=== PATIENT | female | born 1980 | race Caucasian/White ===

== ENCOUNTER 2017-09-14 22:42 | Emergency (ER) | payer OTHER ==
[2017-09-14 23:01] VITALS: BP 149/90; PULSE 91; RESP 20; TEMP 98.4
[2017-09-14] MEDS ORDERED: IBUPROFEN 600 MG TAB PO STA (23:46)
--- NOTE | 2017-09-14 23:49 | ED ---
Upper Extremity HPI - General Chief Complaint: Extremity Injury, Upper Stated Complaint: Hand Injury Time Seen by Provider: 09/14/17 23:37 Source: patient Mode of arrival: ambulatory Limitations: no limitations - History of Present Illness Initial Comments: 37-year-old female patient presents to the emergency department today for complaints of left hand and left wrist pain. Patient states that 2 hours ago she hit a dog with her left hand. She states this is her weakest hand and she isn't having severe pain since. She denies any numbness or tingling but does report increased pain with movement of the thumb in the index finger. Denies any previous injury to the hand. States she does have a history of carpal tunnel. Denies any other injuries. Patient denies any headache, neck pain, back pain, chest pain, shortness of breath, dizziness, weakness, abdominal pain , nausea, vomiting, or difficulties with bowel movements or urination. - Related Data Home Medications Medication Instructions Recorded Confirmed Amitriptyline HCl [Elavil] 25 mg PO HS 07/23/15 07/27/15 Pantoprazole Sodium [Protonix] 20 mg PO DAILY 07/23/15 07/27/15 oxyCODONE-APAP 10-325MG [Percocet 1 tab PO Q6HR PRN 07/23/15 07/27/15 10-325 mg] Previous Rx's Medication Instructions Recorded Ibuprofen [Motrin] 600 mg PO Q8HR PRN #30 tab 09/15/17 Allergies Allergy/AdvReac Type Severity Reaction Status Date / Time aspirin Allergy Anaphylaxis Verified 09/14/17 23:01 divalproex sodium Allergy Chest Verified 09/14/17 23:01 [From Depakote] Pain,agitated and violent gabapentin Allergy Chest Verified 09/14/17 23:01 Pain,agitated and voilent latex Allergy Rash/Hives Verified 09/14/17 23:01 Penicillins Allergy Chest Verified 09/14/17 23:01 Pain,weak legs unable to walk Sulfa (Sulfonamide Allergy Rash/Hives Verified 09/14/17 23:01 Antibiotics) Review of Systems ROS Statement: Those systems with pertinent positive or pertinent negative responses have been documented in the HPI. ROS Other: All systems not noted in ROS Statement are negative. Past Medical History Past Medical History: Asthma, Cancer, GERD/Reflux Additional Past Medical History / Comment(s): left sided abdominal pain,cyst to ovary,melanoma-jaw line-removed at Dr's office. History of Any Multi-Drug Resistant Organisms: None Reported Past Surgical History: Adenoidectomy, Tonsillectomy, Tubal Ligation Additional Past Surgical History / Comment(s): "burned olmos of ovaries",nasal surg. Past Anesthesia/Blood Transfusion Reactions: No Reported Reaction Past Psychological History: Bipolar, PTSD, Schizophrenia Smoking Status: Former smoker Past Alcohol Use History: Occasional Past Drug Use History: None Reported - Past Family History Mother Family Medical History: Cancer Additional Family Medical History / Comment(s): breast Father Additional Family Medical History / Comment(s): w/aneurysm General Exam Limitations: no limitations General appearance: alert, in no apparent distress, other (This is a well- developed, well-nourished adult female patient in no acute distress. Vital signs upon presentation are temperature 98.4F, pulse 91, respirations 20, blood pressure 149/90, pulse ox 100% on room air.) Eye exam: Present: normal appearance, PERRL, EOMI. Absent: scleral icterus, conjunctival injection, periorbital swelling ENT exam: Present: normal exam, normal oropharynx, mucous membranes moist Respiratory exam: Present: normal lung sounds bilaterally. Absent: respiratory distress, wheezes, rales, rhonchi, stridor Cardiovascular Exam: Present: regular rate, normal rhythm, normal heart sounds. Absent: systolic murmur, diastolic murmur, rubs, gallop, clicks Extremities exam: Present: full ROM, tenderness (Volar wrist tenderness over the tendons/ligaments. Tenderness to the first and second digits on the right hand. ), normal capillary refill, other (Skin to the hand and wrist is pink, warm, and dry. Cap refills less than 3 seconds. Radial pulses 2+ and equal bilaterally.). Absent: normal inspection, pedal edema, joint swelling, calf tenderness Neurological exam: Present: alert, oriented X3, CN II-XII intact Psychiatric exam: Present: normal affect, normal mood Skin exam: Present: warm, dry, intact, normal color. Absent: rash Course Vital Signs 09/14/17 22:58 Temperature 98.4 F Pulse Rate 91 Respiratory 20 Rate Blood Pressure 149/90 O2 Sat by Pulse 100 Oximetry Medical Decision Making - Medical Decision Making 37-year-old female patient presents the emergency department today for complaints of left hand and wrist pain after she slapped a dog. Neurovascular status was intact. Patient did have range of motion intact but did report increased pain with full flexion but mostly with extension of the wrist. Patient had good strength in her fingers. X-ray of the left hand and wrist were negative for any acute fractures or dislocations. Patient is most likely expressing a sprain to the left wrist and hand. We will place an Juma wrap. She is instructed to take ibuprofen for pain control. She is instructed to rest , ice, and elevate. She is instructed to follow-up with orthopedics if her symptoms do not improve. Instructed to follow-up with her primary care physician for recheck in 1-2 days. Return parameters discussed in detail. She verbalizes understanding and agrees this plan. - Radiology Data Radiology results: report reviewed, image reviewed 4 views of the left wrist are obtained. There is no fracture nor dislocation. Joint spaces are normal. Scaphoid appears normal. Impression by Dr. Quintana shows normal left wrist. 3 views of the left hand are obtained. Metacarpals are intact. I see no fracture nor dislocation. Joint spaces are normal. Impression by Dr. Quintana shows negative left hand exam. Disposition Clinical Impression: Left wrist sprain, Sprain of left hand Disposition: HOME SELF-CARE Condition: Good Instructions: Hand Sprain (ED), Wrist Sprain (ED) Additional Instructions: Wear Juma wrap for comfort and support. Rest, ice, and elevate the extremity. Take ibuprofen for pain control. Follow-up with orthopedics if her symptoms do not improve. Follow-up through primary care physician for recheck 1-2 days. Return here immediately for any new, worsening, or concerning symptoms. Prescriptions: Ibuprofen [Motrin] 600 mg PO Q8HR PRN #30 tab PRN Reason: Pain Is patient prescribed a controlled substance at d/c from ED?: No Referrals: Clover Almeida MD [Primary Care Provider] - 1-2 days Sebas Quiñones MD [Medical Doctor] - 1-2 days Time of Disposition: 00:40
--- NOTE | 2017-09-15 00:14 | XR ---
EXAMINATION TYPE: XR hand complete LT DATE OF EXAM: 09/15/2017 COMPARISON: NONE HISTORY: Pain TECHNIQUE: 3 views FINDINGS: Metacarpals are intact. I see no fracture nor dislocation. Joint spaces are normal. IMPRESSION: Negative left hand exam.
--- NOTE | 2017-09-15 00:14 | XR ---
EXAMINATION TYPE: XR wrist complete LT DATE OF EXAM: 09/15/2017 COMPARISON: NONE HISTORY: Pain TECHNIQUE: 4 views FINDINGS: I see no fracture nor dislocation. Joint spaces are normal. Scaphoid appears normal. IMPRESSION: Normal left wrist
== END 2017-09-15 01:06 | disposition home or self-care (01) ==
LOC: EC 22:42 → MERGE 22:42 → EC 09-15 01:06
DX: S63.502A Unspecified sprain of left wrist, initial encounter (principal); S63.92XA Sprain of unspecified part of left wrist and hand, initial encounter; K21.9 Gastro-esophageal reflux disease without esophagitis; F31.9 Bipolar disorder, unspecified; Z87.891 Personal history of nicotine dependence; Z79.899 Other long term (current) drug therapy; Z88.0 Allergy status to penicillin; Z88.2 Allergy status to sulfonamides; Z88.6 Allergy status to analgesic agent; Z88.8 Allergy status to other drugs, medicaments and biological substances; Z91.040 Latex allergy status; Z85.820 Personal history of malignant melanoma of skin; Z98.890 Other specified postprocedural states; W54.1XXA Struck by dog, initial encounter; Y92.009 Unspecified place in unspecified non-institutional (private) residence as the place of occurrence of the external cause
CPT/HCPCS: 99283

== ENCOUNTER 2017-11-13 00:02 | Emergency (ER) | payer OTHER ==
[2017-11-13 00:08] VITALS: RESP 16
[2017-11-13] MEDS ORDERED: MORPHINE SULFATE 4 MG/ML SYRINGE IM STA (01:05)
--- NOTE | 2017-11-13 01:16 | ED ---
General Adult HPI - General Chief complaint: Wound/Laceration Stated complaint: incision opened post surgery Time Seen by Provider: 11/13/17 00:12 Source: patient, family Mode of arrival: wheelchair Limitations: no limitations - History of Present Illness Initial comments: Makeda is a 37-year-old female who presents the emergency department for evaluation of vaginal pain. Patient had a eater by Dr. Donohue GUEST SERVICES ASSISTANT today at [facility]. The patient had a cyst on her left labia minora, patient was been under anesthesia and the cyst was excised and sutures were placed. Patient reports that she was experiencing no pain at the time of discharge. She reports that throughout the evening she's had gradually worsening pain. She reports she has severe burning with urination. She reports that around midnight she attempted to reposition herself and felt a popping sensation in her vagina, she is concerned she may have passed this did show she came to the ER for evaluation. - Related Data Home Medications Medication Instructions Recorded Confirmed Divalproex [Depakote] 225 mg PO TID 10/16/13 06/19/14 Hydrocodone/Acetaminophen [[place] 1 each PO TID PRN 10/16/13 06/19/14 7.5-325] Ibuprofen [Motrin] 800 mg PO Q6HR PRN 06/19/14 06/19/14 Amitriptyline HCl [Elavil] 25 mg PO HS 07/23/15 07/27/15 Pantoprazole Sodium [Protonix] 20 mg PO DAILY 07/23/15 07/27/15 oxyCODONE-APAP 10-325MG [Percocet 1 tab PO Q6HR PRN 07/23/15 07/27/15 10-325 mg] Previous Rx's Medication Instructions Recorded Famotidine [Pepcid] 20 mg PO BID #28 tablet 10/16/13 Metoclopramide [Reglan] 10 mg PO TID PRN #10 tab 10/16/13 Ibuprofen [Motrin] 600 mg PO Q8HR PRN #30 tab 09/15/17 Allergies Allergy/AdvReac Type Severity Reaction Status Date / Time aspirin Allergy Rash/Hives Verified 11/13/17 00:08 divalproex sodium Allergy Chest Verified 11/13/17 00:08 [From Depakote] Pain,agitated and violent gabapentin Allergy Chest Verified 11/13/17 00:08 Pain,agitated and voilent latex Allergy Rash/Hives Verified 11/13/17 00:08 lithium [[place]] Allergy Confusion Verified 11/13/17 00:08 Penicillins Allergy Rash/Hives Verified 11/13/17 00:08 Sulfa (Sulfonamide Allergy Rash/Hives Verified 11/13/17 00:08 Antibiotics) Review of Systems ROS Statement: Those systems with pertinent positive or pertinent negative responses have been documented in the HPI. ROS Other: All systems not noted in ROS Statement are negative. Past Medical History Past Medical History: Asthma, Cancer, GERD/Reflux Additional Past Medical History / Comment(s): left sided abdominal pain,cyst to ovary,melanoma-jaw line-removed at Dr's office. History of Any Multi-Drug Resistant Organisms: None Reported Past Surgical History: Adenoidectomy, Tonsillectomy, Tubal Ligation, Uterine Ablation Additional Past Surgical History / Comment(s): labial cyst removal. Past Anesthesia/Blood Transfusion Reactions: No Reported Reaction Past Psychological History: Bipolar, Depression, PTSD, Schizophrenia Past Alcohol Use History: None Reported, Occasional - Past Family History Mother Family Medical History: Cancer Additional Family Medical History / Comment(s): breast Father Additional Family Medical History / Comment(s): w/aneurysm General Exam - General Exam Comments Initial Comments: GENERAL: Patient is well-developed and well-nourished. Patient is nontoxic and well- hydrated and is in no distress. HENT: Normocephalic, Atraumatic. EYES: PERRL PULMONARY: Unlabored respirations. CARDIOVASCULAR: Warm and well-perfused extremities ABDOMEN: Obese, Soft and nontender. SKIN: Skin is clear with no lesions or rashes and otherwise unremarkable. : Labia majora with no abnormalities Left labia minora with 4 sutures on the surface proximal to the vaginal canal, no surrounding erythema, no drainage, no evidence of wound dehiscence or damaged his sutures NEUROLOGIC: Patient is alert and oriented x3. Cranial nerves II through XII are grossly intact. Motor and sensory are also intact. Normal speech, volume and content. Symmetrical smile. MUSCULOSKELETAL: Normal extremities with adequate strength and full range of motion. No lower extremity swelling or edema. No calf tenderness. LYMPHATICS: No significant lymphadenopathy is noted PSYCHIATRIC: Normal psychiatric evaluation. Limitations: no limitations Limitations: no limitations Course Vital Signs 11/13/17 00:03 Temperature 98.2 F Pulse Rate 84 Respiratory 16 Rate Blood Pressure 150/97 O2 Sat by Pulse 98 Oximetry Medical Decision Making - Medical Decision Making The patient was seen and evaluated, vaginal exam reveals a sutured labia minora with no evidence of suture rupture or wound dehiscence. No evidence of infection. Patient with pain with evaluation and any movement. Intramuscular morphine ordered At this time I do not feel there is any acute complication to this postop incision. is having significant pain, I suspect that this is because of numbing medication wearing off, information setting in as well as some contact discomfort with urination. Wound care was discussed, patient was advised to contact her GUEST SERVICES ASSISTANT office in the morning to discuss further management. All questions pertaining to care were answered best my ability patient was discharged home in stable condition. Disposition Clinical Impression: Laceration Disposition: HOME SELF-CARE Condition: Good Instructions: Laceration (DC) Is patient prescribed a controlled substance at d/c from ED?: No Referrals: Clover Almeida MD [Primary Care Provider] - 1-2 days Fazal Donohue DO [REFERRING] - 1-2 days
[2017-11-13 01:35] VITALS: BP 138/76; PULSE 86; TEMP 97.7
== END 2017-11-13 01:36 | disposition home or self-care (01) ==
LOC: EC 00:02
DX: N90.89 Other specified noninflammatory disorders of vulva and perineum (principal); R10.2 Pelvic and perineal pain; K21.9 Gastro-esophageal reflux disease without esophagitis; F31.9 Bipolar disorder, unspecified; Z88.0 Allergy status to penicillin; Z88.2 Allergy status to sulfonamides; Z88.6 Allergy status to analgesic agent; Z88.8 Allergy status to other drugs, medicaments and biological substances; Z91.040 Latex allergy status; Z79.899 Other long term (current) drug therapy; Z85.828 Personal history of other malignant neoplasm of skin; Z98.890 Other specified postprocedural states
CPT/HCPCS: 99283; 96372; J2270

== ENCOUNTER 2018-03-17 09:37 | Emergency (ER) | payer OTHER ==
[2018-03-17 09:43] VITALS: BP 128/88; PULSE 85; RESP 18; TEMP 98.2
--- NOTE | 2018-03-17 10:26 | ED ---
General Adult HPI - General Chief complaint: Recheck/Abnormal Lab/Rx Stated complaint: CAST PROBLEM Time Seen by Provider: 03/17/18 10:06 Source: patient Mode of arrival: ambulatory Limitations: no limitations - History of Present Illness Initial comments: 37-year-old female presents to the emergency department for a chief complaint of loose cast. Patient states she has a boxer's fracture that happened about a week ago. Patient states she has had 2 casts replaced in the past week because they keep "feeling loose." She states the stuffing is also becoming freight at the edges. Patient states she contacted orthopedics and they told her if it was very loose to present to the emergency department for splint placement and the would see her tomorrow for cast replacement. Patient denies significant discomfort stating it just feels loose in center of her right hand. Patient has no other complaints at this time including shortness of breath, chest pain, abdominal pain, nausea or vomiting, headache, or visual changes. - Related Data Home Medications Medication Instructions Recorded Confirmed Divalproex [Depakote] 225 mg PO TID 10/16/13 06/19/14 Hydrocodone/Acetaminophen [[place] 1 each PO TID PRN 10/16/13 06/19/14 7.5-325] Ibuprofen [Motrin] 800 mg PO Q6HR PRN 06/19/14 06/19/14 Amitriptyline HCl [Elavil] 25 mg PO HS 07/23/15 07/27/15 Pantoprazole Sodium [Protonix] 20 mg PO DAILY 07/23/15 07/27/15 oxyCODONE-APAP 10-325MG [Percocet 1 tab PO Q6HR PRN 07/23/15 07/27/15 10-325 mg] Previous Rx's Medication Instructions Recorded Famotidine [Pepcid] 20 mg PO BID #28 tablet 10/16/13 Metoclopramide [Reglan] 10 mg PO TID PRN #10 tab 10/16/13 Ibuprofen [Motrin] 600 mg PO Q8HR PRN #30 tab 09/15/17 Allergies Allergy/AdvReac Type Severity Reaction Status Date / Time aspirin Allergy Rash/Hives Verified 03/17/18 09:43 divalproex sodium Allergy Chest Verified 03/17/18 09:43 [From Depakote] Pain,agitated and violent gabapentin Allergy Chest Verified 03/17/18 09:43 Pain,agitated and voilent latex Allergy Rash/Hives Verified 03/17/18 09:43 lithium [[place]] Allergy Confusion Verified 03/17/18 09:43 Penicillins Allergy Rash/Hives Verified 03/17/18 09:43 Sulfa (Sulfonamide Allergy Rash/Hives Verified 03/17/18 09:43 Antibiotics) Review of Systems ROS Statement: Those systems with pertinent positive or pertinent negative responses have been documented in the HPI. ROS Other: All systems not noted in ROS Statement are negative. Past Medical History Past Medical History: Asthma, Cancer, GERD/Reflux Additional Past Medical History / Comment(s): left sided abdominal pain,cyst to ovary,melanoma-jaw line-removed at Dr's office. History of Any Multi-Drug Resistant Organisms: None Reported Past Surgical History: Adenoidectomy, Tonsillectomy, Tubal Ligation, Uterine Ablation Additional Past Surgical History / Comment(s): labial cyst removal. Past Anesthesia/Blood Transfusion Reactions: No Reported Reaction Past Psychological History: Bipolar, Depression, PTSD, Schizophrenia Past Alcohol Use History: None Reported, Occasional - Past Family History Mother Family Medical History: Cancer Additional Family Medical History / Comment(s): breast Father Additional Family Medical History / Comment(s): w/aneurysm General Exam Limitations: no limitations General appearance: alert, in no apparent distress Head exam: Present: atraumatic, normocephalic, normal inspection Eye exam: Present: normal appearance, PERRL, EOMI. Absent: scleral icterus, conjunctival injection, periorbital swelling ENT exam: Present: normal exam, mucous membranes moist Neck exam: Present: normal inspection, full ROM. Absent: tenderness, meningismus, lymphadenopathy Respiratory exam: Present: normal lung sounds bilaterally. Absent: respiratory distress, wheezes, rales, rhonchi, stridor Cardiovascular Exam: Present: regular rate, normal rhythm, normal heart sounds. Absent: systolic murmur, diastolic murmur, rubs, gallop, clicks Extremities exam: Present: other (patient has a ulnar gutter cast placed on the RUE. Cast is not excessively loose. Capillary refill intact. Sensation intact and fourth and fifth digits. Cast is well placed.) Course Vital Signs 03/17/18 09:39 Temperature 98.2 F Pulse Rate 85 Respiratory 18 Rate Blood Pressure 128/88 O2 Sat by Pulse 98 Oximetry Medical Decision Making - Medical Decision Making 37-year-old female presents to the emergency department for a chief complaint of loose cast. She was told by orthopedics to present for splint placement if cast is too loose and that they would see her tomorrow to replace the cast. On exam patient does have an ulnar gutter cast placed. I did inspect the cast and at this time it is not excessively loose. This is the second cast she has had in one week due to it feeling too loose. Patient does not have mobility of the fourth and fifth digits. Discussed with patient that I can put a splint on it however at this point cast is providing appropriate support. Discussed that it may be better to wait one day to have forestry biology specialist replace cast with another cast rather than removing this cast to splint it and then replace the cast again. Patient agrees with this plan. I again offered to replace the cast with splint but she says she would follow up tomorrow and have it replaced. I did trim some of the webroll as this was bothering patient as well. Patient will return here if it worsens or becomes more loose. Disposition Clinical Impression: Cast in place on extremity Disposition: HOME SELF-CARE Condition: Good Additional Instructions: Please attend your orthopedic appointment tomorrow for cast replacement. Please return here if you have worsening symptoms. Is patient prescribed a controlled substance at d/c from ED?: No Referrals: Clover Almeida MD [Primary Care Provider] - 1-2 days Gavino Gutierrez DO [Doctor of Osteopathic Medicine] - 1-2 days Time of Disposition: 10:26
== END 2018-03-17 10:48 | disposition home or self-care (01) ==
LOC: EC 09:37
DX: Z97.8 Presence of other specified devices (principal); K21.9 Gastro-esophageal reflux disease without esophagitis; Z85.820 Personal history of malignant melanoma of skin; F31.9 Bipolar disorder, unspecified; F43.10 Post-traumatic stress disorder, unspecified; F20.9 Schizophrenia, unspecified; Z79.899 Other long term (current) drug therapy; Z88.0 Allergy status to penicillin; Z88.2 Allergy status to sulfonamides; Z91.040 Latex allergy status; Z88.6 Allergy status to analgesic agent; Z88.8 Allergy status to other drugs, medicaments and biological substances
CPT/HCPCS: 99283

== ENCOUNTER 2018-05-06 23:28 | Emergency (ER) | payer OTHER ==
--- NOTE | 2018-05-06 23:43 | ED ---
General Adult HPI - General Chief complaint: Abdominal Pain Stated complaint: Abd Pain, Hernia,Nausea Time Seen by Provider: 05/06/18 23:35 Source: patient Mode of arrival: ambulatory Limitations: no limitations - History of Present Illness Initial comments: This patient is 37-year-old woman who is having some lower abdominal cramping and bloating type pain. The patient states this been going on for number of days and she ended up seeing her primary physician. She states that her physician noted the swelling in the right groin area and was concerned about possibly of hernia. She was recommended to go to the emergency department if the pains worsened. Patient also complains that she is concerned because she has not had a bowel movement in 5 days though on further questioning she states she has not been eating either. -: days(s) Location: abdomen Radiation: non-radiation Quality: aching, other (Loading) Consistency: colicky Improves with: none Worsens with: none Associated Symptoms: nausea/vomiting - Related Data Home Medications Medication Instructions Recorded Confirmed Divalproex [Depakote] 225 mg PO TID 10/16/13 06/19/14 Hydrocodone/Acetaminophen [[place] 1 each PO TID PRN 10/16/13 06/19/14 7.5-325] Ibuprofen [Motrin] 800 mg PO Q6HR PRN 06/19/14 06/19/14 Amitriptyline HCl [Elavil] 25 mg PO HS 07/23/15 07/27/15 Pantoprazole Sodium [Protonix] 20 mg PO DAILY 07/23/15 07/27/15 oxyCODONE-APAP 10-325MG [Percocet 1 tab PO Q6HR PRN 07/23/15 07/27/15 10-325 mg] Previous Rx's Medication Instructions Recorded Famotidine [Pepcid] 20 mg PO BID #28 tablet 10/16/13 Metoclopramide [Reglan] 10 mg PO TID PRN #10 tab 10/16/13 Ibuprofen [Motrin] 600 mg PO Q8HR PRN #30 tab 09/15/17 Dicyclomine [Bentyl] 20 mg PO QID #15 tablet 05/07/18 Ibuprofen [Motrin] 600 mg PO Q8HR PRN #20 tab 05/07/18 Ondansetron Odt [Zofran ODT] 4 mg PO Q8HR PRN #10 tab 05/07/18 Allergies Allergy/AdvReac Type Severity Reaction Status Date / Time aspirin Allergy Rash/Hives Verified 05/06/18 23:34 divalproex sodium Allergy Chest Verified 05/06/18 23:34 [From Depakote] Pain,agitated and violent gabapentin Allergy Chest Verified 05/06/18 23:34 Pain,agitated and voilent latex Allergy Rash/Hives Verified 05/06/18 23:34 lithium [[place]] Allergy Confusion Verified 05/06/18 23:34 Penicillins Allergy Rash/Hives Verified 05/06/18 23:34 Sulfa (Sulfonamide Allergy Rash/Hives Verified 05/06/18 23:34 Antibiotics) Review of Systems ROS Statement: Those systems with pertinent positive or pertinent negative responses have been documented in the HPI. ROS Other: All systems not noted in ROS Statement are negative. Constitutional: Denies: fever, chills Respiratory: Denies: cough, dyspnea Cardiovascular: Denies: chest pain, palpitations Gastrointestinal: Reports: abdominal pain, nausea. Denies: vomiting, diarrhea, constipation, melena, hematochezia Genitourinary: Denies: dysuria, frequency, hematuria Musculoskeletal: Denies: back pain Skin: Denies: rash Neurological: Denies: headache, weakness, numbness Past Medical History Past Medical History: Asthma, Cancer, GERD/Reflux Additional Past Medical History / Comment(s): left sided abdominal pain,cyst to ovary,melanoma-jaw line-removed at Dr's office, hernia, History of Any Multi-Drug Resistant Organisms: None Reported Past Surgical History: Adenoidectomy, Tonsillectomy, Tubal Ligation, Uterine Ablation Additional Past Surgical History / Comment(s): labial cyst removal, carpal tunnel bilat, Past Anesthesia/Blood Transfusion Reactions: No Reported Reaction Past Psychological History: Bipolar, Depression, PTSD, Schizophrenia Smoking Status: Former smoker Past Alcohol Use History: None Reported Past Drug Use History: None Reported - Past Family History Mother Family Medical History: Cancer Additional Family Medical History / Comment(s): breast Father Additional Family Medical History / Comment(s): w/aneurysm General Exam Limitations: no limitations General appearance: alert, in no apparent distress Head exam: Present: atraumatic, normocephalic Eye exam: Present: normal appearance, PERRL, EOMI. Absent: scleral icterus, conjunctival injection ENT exam: Present: normal oropharynx Neck exam: Present: normal inspection Respiratory exam: Present: normal lung sounds bilaterally. Absent: respiratory distress, wheezes, rales, rhonchi, stridor Cardiovascular Exam: Present: regular rate, normal rhythm, normal heart sounds. Absent: systolic murmur, diastolic murmur, rubs, gallop GI/Abdominal exam: Present: soft, normal bowel sounds. Absent: distended, tenderness, guarding, rebound, rigid, mass, hernia Extremities exam: Present: normal inspection, normal capillary refill, other (Patient does have slightly enlarged tender right inguinal node.). Absent: pedal edema, calf tenderness Back exam: Present: normal inspection. Absent: CVA tenderness (R), CVA tenderness (L) Neurological exam: Present: alert Skin exam: Present: warm, dry, intact, normal color. Absent: rash Course Vital Signs 05/06/18 05/07/18 05/07/18 23:31 00:53 02:11 Temperature 98.6 F 98.0 F Pulse Rate 84 84 73 Respiratory 17 18 20 Rate Blood Pressure 136/93 136/92 137/86 O2 Sat by Pulse 100 100 97 Oximetry Medical Decision Making - Medical Decision Making This patient is 37-year-old woman with some mild abdominal pains and enlarged right inguinal node, that I believe is what the patient's physician was possibly referring to as the hernia. Given the uncertainty there she did have computed tomography scan which confirms that this appears to be a node, and that there are other nodes near the reason tarry. Discussed with the patient that these are common for her pain and that she must follow-up to have them reevaluated and ensure that they are resolving. We discussed possible need for biopsy to ensure that there is no malignancy. Discussed further care and follow-up as well as return parameters. Patient also prescribed some symptomatic relief. - Lab Data Result diagrams: 05/07/18 00:00 05/07/18 00:00 Lab Results 05/07/18 05/07/18 05/07/18 Range/Units 00:00 00:00 00:46 WBC 10.6 (3.8-10.6) k/uL RBC 4.70 (3.80-5.40) m/uL Hgb 12.7 (11.4-16.0) gm/dL Hct 39.3 (34.0-46.0) % MCV 83.6 (80.0-100.0) fL MCH 27.1 (25.0-35.0) pg MCHC 32.4 (31.0-37.0) g/dL RDW 14.0 (11.5-15.5) % Plt Count 328 (150-450) k/uL Neutrophils % 50 % Lymphocytes % 40 % Monocytes % 4 % Eosinophils % 4 % Basophils % 1 % Neutrophils # 5.3 (1.3-7.7) k/uL Lymphocytes # 4.3 (1.0-4.8) k/uL Monocytes # 0.4 (0-1.0) k/uL Eosinophils # 0.4 (0-0.7) k/uL Basophils # 0.1 (0-0.2) k/uL Sodium 138 (137-145) mmol/L Potassium 4.1 (3.5-5.1) mmol/L Chloride 107 (98-107) mmol/L Carbon Dioxide 23 (22-30) mmol/L Anion Gap 8 mmol/L BUN 14 (7-17) mg/dL Creatinine 0.85 (0.52-1.04) mg/dL Est GFR (CKD-EPI)AfAm >90 (>60 ml/min/1.73 sqM) Est GFR (CKD-EPI)NonAf 88 (>60 ml/min/1.73 sqM) Glucose 86 (74-99) mg/dL Calcium 9.2 (8.4-10.2) mg/dL Total Bilirubin 0.3 (0.2-1.3) mg/dL AST 20 (14-36) U/L ALT 29 (9-52) U/L Alkaline Phosphatase 54 (38-126) U/L Total Protein 6.9 (6.3-8.2) g/dL Albumin 3.9 (3.5-5.0) g/dL Amylase 45 (30-110) U/L Lipase 74 (23-300) U/L Urine Color Light Yellow Urine Appearance Clear (Clear) Urine pH 6.5 (5.0-8.0) Ur Specific [place] 1.007 (1.001-1.035) Urine Protein Negative (Negative) Urine Glucose (UA) Negative (Negative) Urine Ketones Negative (Negative) Urine Blood Negative (Negative) Urine Nitrite Negative (Negative) Urine Bilirubin Negative (Negative) Urine Urobilinogen <2.0 (<2.0) mg/dL Ur Leukocyte Esterase Small H (Negative) Urine RBC 1 (0-5) /hpf Urine WBC 4 (0-5) /hpf Ur Squamous Epith Cells 3 (0-4) /hpf Urine Bacteria Rare H (None) /hpf Urine Mucus Rare H (None) /hpf Urine Yeast (Budding) Rare H (None) /hpf Urine HCG, Qual (Not Detectd) 05/07/18 Range/Units 00:46 WBC (3.8-10.6) k/uL RBC (3.80-5.40) m/uL Hgb (11.4-16.0) gm/dL Hct (34.0-46.0) % MCV (80.0-100.0) fL MCH (25.0-35.0) pg MCHC (31.0-37.0) g/dL RDW (11.5-15.5) % Plt Count (150-450) k/uL Neutrophils % % Lymphocytes % % Monocytes % % Eosinophils % % Basophils % % Neutrophils # (1.3-7.7) k/uL Lymphocytes # (1.0-4.8) k/uL Monocytes # (0-1.0) k/uL Eosinophils # (0-0.7) k/uL Basophils # (0-0.2) k/uL Sodium (137-145) mmol/L Potassium (3.5-5.1) mmol/L Chloride (98-107) mmol/L Carbon Dioxide (22-30) mmol/L Anion Gap mmol/L BUN (7-17) mg/dL Creatinine (0.52-1.04) mg/dL Est GFR (CKD-EPI)AfAm (>60 ml/min/1.73 sqM) Est GFR (CKD-EPI)NonAf (>60 ml/min/1.73 sqM) Glucose (74-99) mg/dL Calcium (8.4-10.2) mg/dL Total Bilirubin (0.2-1.3) mg/dL AST (14-36) U/L ALT (9-52) U/L Alkaline Phosphatase (38-126) U/L Total Protein (6.3-8.2) g/dL Albumin (3.5-5.0) g/dL Amylase (30-110) U/L Lipase (23-300) U/L Urine Color Urine Appearance (Clear) Urine pH (5.0-8.0) Ur Specific [place] (1.001-1.035) Urine Protein (Negative) Urine Glucose (UA) (Negative) Urine Ketones (Negative) Urine Blood (Negative) Urine Nitrite (Negative) Urine Bilirubin (Negative) Urine Urobilinogen (<2.0) mg/dL Ur Leukocyte Esterase (Negative) Urine RBC (0-5) /hpf Urine WBC (0-5) /hpf Ur Squamous Epith Cells (0-4) /hpf Urine Bacteria (None) /hpf Urine Mucus (None) /hpf Urine Yeast (Budding) (None) /hpf Urine HCG, Qual Not Detected (Not Detectd) Disposition Clinical Impression: Abdominal pain, Mesenteric panniculitis Disposition: HOME SELF-CARE Condition: Good Instructions (If sedation given, give patient instructions): Abdominal Pain (ED) Prescriptions: Dicyclomine [Bentyl] 20 mg PO QID #15 tablet Ibuprofen [Motrin] 600 mg PO Q8HR PRN #20 tab PRN Reason: Pain Ondansetron Odt [Zofran ODT] 4 mg PO Q8HR PRN #10 tab PRN Reason: Nausea Is patient prescribed a controlled substance at d/c from ED?: No Referrals: Clover Almeida MD [Primary Care Provider] - 1-2 days
[2018-05-07 00:07] LABS: Basophils # (A) 0.1 k/uL (0-0.2); Basophils % (A) 1 %; Eosinophils # (A) 0.4 k/uL (0-0.7); Eosinophils % (A) 4 %; HCT 39.3 % (34.0-46.0); HGB 12.7 gm/dL (11.4-16.0); Lymphocytes # (A) 4.3 k/uL (1.0-4.8); Lymphocytes % (A) 40 %; MCH 27.1 pg (25.0-35.0); MCHC 32.4 g/dL (31.0-37.0); MCV 83.6 fL (80.0-100.0); Mean Platelet Volume 6.4; Monocytes # (A) 0.4 k/uL (0-1.0); Monocytes % (A) 4 %; Neutrophils # (A) 5.3 k/uL (1.3-7.7); Neutrophils % (A) 50 %; Platelet Count 328 k/uL (150-450); WBC 10.6 k/uL (3.8-10.6)
[2018-05-07 00:19] LABS: ALT 29 U/L (9-52); AST 20 U/L (14-36); Albumin 3.9 g/dL (3.5-5.0); Alkaline Phosphatase 54 U/L (38-126); Amylase 45 U/L (30-110); Anion Gap 8 mmol/L; Blood Urea Nitrogen 14 mg/dL (7-17); Calcium 9.2 mg/dL (8.4-10.2); Carbon Dioxide 23 mmol/L (22-30); Chloride 107 mmol/L (98-107); Glucose 86 mg/dL (74-99); Lipase 74 U/L (23-300); Potassium 4.1 mmol/L (3.5-5.1); Sodium 138 mmol/L (137-145); Total Bilirubin 0.3 mg/dL (0.2-1.3); Total Protein 6.9 g/dL (6.3-8.2)
[2018-05-07] MEDS ORDERED: MORPHINE SULFATE 4 MG/ML SYRINGE IV STA (00:47)
[2018-05-07 00:55] LABS: Appearance,Urine Clear (Clear); Bacteria,Urine Rare /hpf; Bilirubin,Urine Negative (Negative); Blood,Urine Negative (Negative); Budding Yeast,Urine Rare /hpf; Color,Urine Light Yellow; Glucose,Urine (UA) Negative (Negative); Ketones,Urine Negative (Negative); Leukocyte Esterase,Urine Small (Negative); Mucus,Urine Rare /hpf; Nitrite,Urine Negative (Negative); PH, Urine 6.5 (5.0-8.0); Protein,Urine Negative (Negative); RBC,Urine 1 /hpf (0-5); Specific Gravity,Urine 1.007 (1.001-1.035); Squamous Epithelial Cell,Urine 3 /hpf (0-4); Urobilinogen,Urine <2.0 mg/dL (<2.0); WBC,Urine 4 /hpf (0-5)
--- NOTE | 2018-05-07 01:50 | CT ---
EXAM: CT Abdomen and Pelvis Without Intravenous Contrast CLINICAL HISTORY: ITS.REASON CT Reason: Pain TECHNIQUE: Axial computed tomography images of the abdomen and pelvis without intravenous contrast. CTDI is 16 mGy and DLP is 924 mGy-cm. This CT exam was performed using one or more of the following dose reduction techniques: automated exposure control, adjustment of the mA and/or kV according to patient size, and/or use of iterative reconstruction technique. COMPARISON: CT abdomen 07/25/17 FINDINGS: Lung bases: No mass. No consolidation. ABDOMEN: Liver: Enlarged with fatty infiltration. Gallbladder and bile ducts: Unremarkable. Pancreas: No ductal dilation. Spleen: Unremarkable. Adrenals: Unremarkable. Kidneys and ureters: No obstructing stones. No hydronephrosis. Stomach and bowel: No bowel obstruction or bowel wall thickening. PELVIS: Appendix: No evidence of appendicitis. Bladder: No stones. Reproductive: Unremarkable. ABDOMEN and PELVIS: Intraperitoneal space: Hazy stranding of the central mesentery with prominent lymph nodes in this region. Bones/joints: No acute fractures. Soft tissues: Unremarkable. Vasculature: No abdominal aortic aneurysm. Lymph nodes: No enlarged lymph nodes. IMPRESSION: 1. Hazy stranding of the central mesentery with prominent mesenteric lymph nodes. This is nonspecific but can be seen with mesenteric panniculitis, a benign inflammatory condition associated with abdominal pain. 2. Hepatic steatosis with hepatomegaly.
[2018-05-07 02:12] VITALS: BP 137/86; PULSE 73; RESP 20; TEMP 98
== END 2018-05-07 02:13 | disposition home or self-care (01) ==
LOC: EC 23:28
DX: K65.4 Sclerosing mesenteritis (principal); R59.0 Localized enlarged lymph nodes; K21.9 Gastro-esophageal reflux disease without esophagitis; F31.9 Bipolar disorder, unspecified; Z87.891 Personal history of nicotine dependence; Z88.0 Allergy status to penicillin; Z88.2 Allergy status to sulfonamides; Z88.6 Allergy status to analgesic agent; Z88.8 Allergy status to other drugs, medicaments and biological substances; Z91.040 Latex allergy status; Z79.899 Other long term (current) drug therapy; Z85.820 Personal history of malignant melanoma of skin; Z98.890 Other specified postprocedural states
CPT/HCPCS: 36415; 74176; 80053; 81001; 81025; 82150; 83690; 85025; 96374; 99284

== ENCOUNTER → 2018-05-09 | Outpatient (CLI) | payer OTHER ==
--- NOTE | 2018-05-10 03:28 | MR ---
EXAMINATION TYPE: MR cspine/lspine wo con DATE OF EXAM: 05/09/2018 COMPARISON: 06/19/2013 HISTORY: 37-year-old female cervicalgia and low back pain. Neck pain, headaches, LBP, BLE radiculopat hy x several years TECHNIQUE: Multiplanar, multisequence imaging of the cervical followed by the lumbar spine is perform ed without IV contrast. FINDINGS: CERVICAL SPINE: No craniocervical junction abnormality, predental space widening, or prevertebral soft tissue swellin g. Preserved alignment of the cervical spine. Interval straightening of the cervical spine. No suspicious bone marrow replacement. Very mild multilevel intervertebral disc desiccation, particularly at C5-C6, slightly increased from 06/19/2013. Disc bulging is present from C4 through C7 levels, also slightly progressed in the interva l. There is a component of mild congenital spinal canal stenosis with AP canal dimension of 1.1 cm. Scattered facet and uncovertebral joint degenerative change. At C2-C3, mild facet degenerative change without significant canal or foraminal stenosis. At C3-C4, mild facet degenerative change without significant canal or foraminal stenosis. At C4-C5, mild facet degenerative change and mild posterior disc bulge accentuating the mild congenit al canal narrowing and abutting the ventral cord. No significant neuroforaminal stenosis. At C5-C6, mild posterior disc bulge and mild facet degenerative change. There is slight accentuation of the congenital canal narrowing with abutment of the ventral cord and slight ventral cord flattenin g. At C6/C7, eccentric right paracentral broad-based disc bulge and mild facet degenerative change. Slig ht accentuation of the mild congenital canal narrowing. No neural foraminal stenosis. At C7-T1, no significant canal or foraminal stenosis. Normal course and signal intensity of the cervical cord. There appears to be prominent soft tissue in the region of the vallecula. LUMBAR SPINE: Vertebral body heights are preserved and alignment is maintained. Minimal disc bulging after the sides throughout the lumbar spine and facet arthropathy mid to lower l umbar spine. There is a component of mild congenital spinal canal stenosis with AP canal dimension of 1.2 cm upper lumbar spine and 1.1 cm mid to lower lumbar spine. Fatty matrix hemangioma within the L4 vertebral body. No suspicious bone marrow replacement. Conus medullaris is normal. No prevertebral or paravertebral soft tissue abnormality. From T12 through L3 levels, no significant spinal canal or neuroforaminal stenosis. At L3-L4, very mild disc bulging laterally and facet degenerative change causing minimal bilateral in ferior foraminal narrowing. No spinal canal stenosis. At L4-L5, there is mild disc bulge and facet degenerative change. Minimal bilateral inferior foramina l narrowing, left greater than right without significant spinal canal stenosis. At L5-S1, no significant spinal canal or neural foraminal stenosis. COMBINED IMPRESSION: CERVICAL SPINE: 1. Mild multilevel degenerative disc disease with early disc desiccation progressed from 2014 along w ith mild posterior disc bulging from C4 through C7 levels, also progressed. 2. Scattered mild facet arthropathy. 3. These changes are superimposed on a mild congenital spinal canal narrowing. 4. The mild canal narrowing is accentuated at a few levels secondary to the disc bulges with abutment of the ventral cord. No significant spinal canal stenosis or cord compression. LUMBAR SPINE: 1. Mild congenital canal narrowing with AP canal dimension of 1.2 cm upper lumbar spine and 1.1 cm mi d to lower lumbar spine. 2. There is minimal lateral disc bulging. Additional facet arthropathy mid to lower lumbar spine. 3. Changes result in minimal inferior neuroforaminal narrowing at L3-L4 and L4-L5. No focal disc joe iation or significant spinal canal or neuroforaminal stenosis.
== END | disposition home or self-care (01) ==
LOC: RADMRIMAIN 13:20
PROVIDERS: ATTEND Anesthesiology Pain Medicine
DX: M48.02 Spinal stenosis, cervical region (principal); M48.061 Spinal stenosis, lumbar region without neurogenic claudication; M50.221 Other cervical disc displacement at C4-C5 level; M51.26 Other intervertebral disc displacement, lumbar region; M50.321 Other cervical disc degeneration at C4-C5 level; M46.92 Unspecified inflammatory spondylopathy, cervical region; M46.96 Unspecified inflammatory spondylopathy, lumbar region
CPT/HCPCS: 72141; 72148

== ENCOUNTER → 2018-07-25 | Outpatient (CLI) | payer OTHER ==
[2018-07-26 13:08] LABS: Serum Amphetamine Negative; Serum Barbiturates Negative; Serum Benzodiazepine Negative; Serum Cocaine Negative; Serum Methadone Negative; Serum Opiates Negative; Serum Phencyclidine Negative; Serum Propoxyphene Negative; Serum THC (Cannabis) Negative
== END | disposition home or self-care (01) ==
LOC: LABWHC1 13:49
PROVIDERS: ATTEND Anesthesiology Pain Medicine
DX: Z51.81 Encounter for therapeutic drug level monitoring (principal); Z79.891 Long term (current) use of opiate analgesic
CPT/HCPCS: 36415; 80307

== ENCOUNTER → 2018-07-25 | Outpatient (CLI) | payer OTHER ==
--- NOTE | 2018-07-25 15:39 | XR ---
Bilateral hips HISTORY: Pain 2 views of each hip are submitted. No comparisons Bone mineralization, joint spaces and alignment are within normal limits. Probable bone islands noted bilaterally. IMPRESSION: Normal hips.
== END | disposition home or self-care (01) ==
LOC: RADXRMAIN 14:13
PROVIDERS: ATTEND Anesthesiology Pain Medicine
DX: M25.551 Pain in right hip (principal); M25.552 Pain in left hip
CPT/HCPCS: 73521

== ENCOUNTER 2018-09-24 20:27 | Emergency (ER) | payer OTHER ==
[2018-09-24 20:36] VITALS: BP 140/93; PULSE 107; RESP 20; TEMP 98.2
--- NOTE | 2018-09-24 20:55 | ED ---
Lower Extremity Injury HPI - General Chief Complaint: Extremity Injury, Lower Stated Complaint: Ankle injury Time Seen by Provider: 09/24/18 20:40 Source: patient Mode of arrival: ambulatory Limitations: no limitations - History of Present Illness Initial Comments: 38-year-old female patient presents to the emergency department today for evaluation of right lateral ankle pain. Patient states the pain has been present for the last week. Patient states this started when she twisted her left ankle. Patient denies any swelling. Denies any calf pain. Patient states she did take ibuprofen for pain but it did not help. Patient states the pain has persisted so she became concerned and presented here for further evaluation. Denies any known injury to the ankle. Denies any previous injury to the ankle. Denies any fever or chills. Patient denies any headache, neck pain, back pain, chest pain, shortness of breath, dizziness, weakness, abdominal pain, nausea, vomiting, or difficulties with bowel movements or urination. - Related Data Home Medications Medication Instructions Recorded Confirmed Divalproex [Depakote] 225 mg PO TID 10/16/13 06/19/14 Hydrocodone/Acetaminophen [[place] 1 each PO TID PRN 10/16/13 06/19/14 7.5-325] Ibuprofen [Motrin] 800 mg PO Q6HR PRN 06/19/14 06/19/14 Amitriptyline HCl [Elavil] 25 mg PO HS 07/23/15 07/27/15 Pantoprazole Sodium [Protonix] 20 mg PO DAILY 07/23/15 07/27/15 oxyCODONE-APAP 10-325MG [Percocet 1 tab PO Q6HR PRN 07/23/15 07/27/15 10-325 mg] Previous Rx's Medication Instructions Recorded Famotidine [Pepcid] 20 mg PO BID #28 tablet 10/16/13 Metoclopramide [Reglan] 10 mg PO TID PRN #10 tab 10/16/13 Ibuprofen [Motrin] 600 mg PO Q8HR PRN #30 tab 09/15/17 Dicyclomine [Bentyl] 20 mg PO QID #15 tablet 05/07/18 Ibuprofen [Motrin] 600 mg PO Q8HR PRN #20 tab 05/07/18 Ondansetron Odt [Zofran ODT] 4 mg PO Q8HR PRN #10 tab 05/07/18 Ibuprofen [Motrin] 600 mg PO Q8HR PRN #30 tab 09/24/18 Allergies Allergy/AdvReac Type Severity Reaction Status Date / Time aspirin Allergy Rash/Hives Verified 09/24/18 20:35 divalproex sodium Allergy Chest Verified 09/24/18 20:35 [From Depakote] Pain,agitated and violent gabapentin Allergy Chest Verified 09/24/18 20:35 Pain,agitated and voilent latex Allergy Rash/Hives Verified 09/24/18 20:35 lithium [[place]] Allergy Confusion Verified 09/24/18 20:35 Penicillins Allergy Rash/Hives Verified 09/24/18 20:35 Sulfa (Sulfonamide Allergy Rash/Hives Verified 09/24/18 20:35 Antibiotics) Review of Systems ROS Statement: Those systems with pertinent positive or pertinent negative responses have been documented in the HPI. ROS Other: All systems not noted in ROS Statement are negative. Past Medical History Past Medical History: Asthma, Cancer, GERD/Reflux Additional Past Medical History / Comment(s): left sided abdominal pain,cyst to ovary,melanoma-jaw line-removed at Dr's office, hernia, History of Any Multi-Drug Resistant Organisms: None Reported Past Surgical History: Adenoidectomy, Tonsillectomy, Tubal Ligation, Uterine Ablation Additional Past Surgical History / Comment(s): labial cyst removal, carpal tunnel bilat, Past Anesthesia/Blood Transfusion Reactions: No Reported Reaction Past Psychological History: Bipolar, Depression, PTSD, Schizophrenia Smoking Status: Former smoker Past Alcohol Use History: None Reported Past Drug Use History: None Reported - Past Family History Mother Family Medical History: Cancer Additional Family Medical History / Comment(s): breast Father Additional Family Medical History / Comment(s): w/aneurysm General Exam Limitations: no limitations General appearance: alert, in no apparent distress, other (This is a well- developed, well-nourished adult female patient in no acute distress. Vital signs upon presentation are temperature 98.2F, pulse 107, respirations 20, blood pressure 140/93, pulse ox 99% on room air.) Respiratory exam: Present: normal lung sounds bilaterally. Absent: respiratory distress, wheezes, rales, rhonchi, stridor Cardiovascular Exam: Present: regular rate, normal rhythm, normal heart sounds. Absent: systolic murmur, diastolic murmur, rubs, gallop, clicks Extremities exam: Present: normal inspection, full ROM, tenderness (Tenderness over the right lateral ankle), normal capillary refill, other (Skin to the right foot and ankle are pink, warm, dry. Cap refills less than 3 seconds. Radial pulses 2+ and equal bilaterally.). Absent: pedal edema, joint swelling, calf tenderness Neurological exam: Present: alert, oriented X3, CN II-XII intact Psychiatric exam: Present: normal affect, normal mood Skin exam: Present: warm, dry, intact, normal color. Absent: rash Course Vital Signs 09/24/18 20:33 Temperature 98.2 F Pulse Rate 107 H Respiratory 20 Rate Blood Pressure 140/93 O2 Sat by Pulse 99 Oximetry Medical Decision Making - Medical Decision Making 38-year-old female patient presented to the emergency department today for evaluation of right ankle pain. She had no injury. There is no swelling or erythema. No calf tenderness. No risk factors for DVT. Patient be given splint and prescription for ibuprofen. She is educated regarding rest ice and elevation. She is instructed follow up with her primary care physician for recheck in 1-2 days. Return parameters were discussed in detail. She verbalizes understanding and agrees with this plan. Disposition Clinical Impression: Right ankle sprain Disposition: HOME SELF-CARE Condition: Good Instructions (If sedation given, give patient instructions): Ankle Sprain (ED) Additional Instructions: Take medication as directed. Use splint for comfort and support. Apply ice, elevate the leg. If symptoms aren't improved over the next 7-10 days follow-up with orthopedics for further evaluation. Return to the emergency department immediately for any new, worsening, or concerning symptoms. Prescriptions: Ibuprofen [Motrin] 600 mg PO Q8HR PRN #30 tab PRN Reason: Pain Is patient prescribed a controlled substance at d/c from ED?: No Referrals: Inder Eden DO [Primary Care Provider] - 1-2 days Time of Disposition: 20:55
--- NOTE | 2018-09-27 06:34 | CDI ---
see below, Dear sheela Hope,,[employer], Please do addendum to ED report for missing procedure for ankle-stirup splint application. Thank You, eufemia. Social Work Supervisor I you have any question,please contact manager of administration at [phone] [facility]
== END 2018-09-24 21:06 | disposition home or self-care (01) ==
LOC: EC 20:27
DX: S93.401A Sprain of unspecified ligament of right ankle, initial encounter (principal); F31.9 Bipolar disorder, unspecified; F20.9 Schizophrenia, unspecified; K21.9 Gastro-esophageal reflux disease without esophagitis; Z79.899 Other long term (current) drug therapy; Z87.891 Personal history of nicotine dependence; Z88.6 Allergy status to analgesic agent; Z88.0 Allergy status to penicillin; Z88.2 Allergy status to sulfonamides; Z88.8 Allergy status to other drugs, medicaments and biological substances; Z91.040 Latex allergy status; Z85.820 Personal history of malignant melanoma of skin; Z87.42 Personal history of other diseases of the female genital tract; Z98.51 Tubal ligation status; X50.1XXA Overexertion from prolonged static or awkward postures, initial encounter
CPT/HCPCS: 29515; 99283

== ENCOUNTER → 2018-11-29 | Outpatient (CLI) | payer OTHER ==
--- NOTE | 2018-11-29 13:13 | USB ---
Reason for exam: clinical finding. Physical Findings: Nurse Summary: Patient complains of left breast lump with pus drainage completed antibiotic therapy, doctor felt another lump x 2 weeks ago, resolving abscess (nurse mj). US Breast LT Left complete breast ultrasound includes all four quadrants, the retroareolar region and axilla. Finding demonstrates no cystic or solid lesion seen. These results were verbally communicated with the patient and result sheet given to the patient on 11/29/18. ASSESSMENT: Negative, BI-RAD 1 RECOMMENDATION: Routine screening mammogram of both breasts at age 40. Manage patient on a clinical basis.
== END | disposition home or self-care (01) ==
LOC: RADUSWWP 11:47
PROVIDERS: ATTEND Family Medicine
DX: N61.1 Abscess of the breast and nipple (principal)

== ENCOUNTER 2018-12-07 20:03 | Emergency (ER) | payer OTHER ==
[2018-12-07] MEDS ORDERED: HYDROcodone/APAP 5-325MG 1 EACH TAB PO STA (20:18)
[2018-12-07] MEDS ORDERED: KETOROLAC 60 MG/2 ML VIAL IM STA (20:18)
[2018-12-07] MEDS ORDERED: DIAZEPAM 5 MG TAB PO STA (20:18)
--- NOTE | 2018-12-07 20:21 | ED ---
Upper Extremity HPI - General Chief Complaint: Extremity Injury, Upper Stated Complaint: Shoulder pain Time Seen by Provider: 12/07/18 20:12 Source: patient, RN notes reviewed, old records reviewed Mode of arrival: ambulatory Limitations: no limitations - History of Present Illness Initial Comments: This is a 30-year-old female presenting with right shoulder pain. Patient has history of right shoulder injury rotator cuff injury of right shoulder no surgical treatment. Patient is had pain for 3 days worsening inability left shoulder above shoulder length. Left arm above shoulder length. Patient can extend it antreriorly and laterally and move hand without difficulty. Again no traumatic injury no fevers no shortness of breath no pain with deep breath. MD Complaint: Injury to:: right, shoulder -: days(s) (3) Other Extremity Injury: Shoulder: Right Other Injuries: RLE Handedness: right Place: home Severity scale (1-10): 10 Improves With: immobilization Worsens With: movement of extremity Context: injury (Injury occurred while sleeping) Associated Symptoms: denies other symptoms - Related Data Home Medications Medication Instructions Recorded Confirmed Divalproex [Depakote] 225 mg PO TID 10/16/13 06/19/14 Hydrocodone/Acetaminophen [[place] 1 each PO TID PRN 10/16/13 06/19/14 7.5-325] Ibuprofen [Motrin] 800 mg PO Q6HR PRN 06/19/14 06/19/14 Amitriptyline HCl [Elavil] 25 mg PO HS 07/23/15 07/27/15 Pantoprazole Sodium [Protonix] 20 mg PO DAILY 07/23/15 07/27/15 oxyCODONE-APAP 10-325MG [Percocet 1 tab PO Q6HR PRN 07/23/15 07/27/15 10-325 mg] Previous Rx's Medication Instructions Recorded Famotidine [Pepcid] 20 mg PO BID #28 tablet 10/16/13 Metoclopramide [Reglan] 10 mg PO TID PRN #10 tab 10/16/13 Ibuprofen [Motrin] 600 mg PO Q8HR PRN #30 tab 09/15/17 Dicyclomine [Bentyl] 20 mg PO QID #15 tablet 05/07/18 Ibuprofen [Motrin] 600 mg PO Q8HR PRN #20 tab 05/07/18 Ondansetron Odt [Zofran ODT] 4 mg PO Q8HR PRN #10 tab 05/07/18 Ibuprofen [Motrin] 600 mg PO Q8HR PRN #30 tab 09/24/18 Diazepam [Valium] 5 mg PO TID PRN 3 Days #9 tab 12/07/18 Allergies Allergy/AdvReac Type Severity Reaction Status Date / Time aspirin Allergy Rash/Hives Verified 12/07/18 20:07 divalproex sodium Allergy Chest Verified 12/07/18 20:07 [From Depakote] Pain,agitated and violent gabapentin Allergy Chest Verified 12/07/18 20:07 Pain,agitated and voilent latex Allergy Rash/Hives Verified 12/07/18 20:07 lithium [[place]] Allergy Confusion Verified 12/07/18 20:07 Penicillins Allergy Rash/Hives Verified 12/07/18 20:07 Sulfa (Sulfonamide Allergy Rash/Hives Verified 12/07/18 20:07 Antibiotics) Review of Systems ROS Statement: Those systems with pertinent positive or pertinent negative responses have been documented in the HPI. ROS Other: All systems not noted in ROS Statement are negative. Past Medical History Past Medical History: Asthma, Cancer, GERD/Reflux Additional Past Medical History / Comment(s): left sided abdominal pain,cyst to ovary,melanoma-jaw line, hernia, History of Any Multi-Drug Resistant Organisms: None Reported Past Surgical History: Adenoidectomy, Tonsillectomy, Tubal Ligation, Uterine Ablation Additional Past Surgical History / Comment(s): labial cyst removal, carpal tunnel bilat, Past Anesthesia/Blood Transfusion Reactions: No Reported Reaction Past Psychological History: Bipolar, Depression, PTSD, Schizophrenia Smoking Status: Former smoker Past Alcohol Use History: None Reported Past Drug Use History: None Reported - Past Family History Mother Family Medical History: Cancer Additional Family Medical History / Comment(s): breast Father Additional Family Medical History / Comment(s): w/aneurysm General Exam Limitations: no limitations General appearance: alert, in no apparent distress Head exam: Present: atraumatic, normocephalic, normal inspection Eye exam: Present: normal appearance, PERRL, EOMI. Absent: scleral icterus, conjunctival injection, periorbital swelling ENT exam: Present: normal exam, mucous membranes moist Neck exam: Present: normal inspection. Absent: tenderness, meningismus, lymphadenopathy Respiratory exam: Present: normal lung sounds bilaterally. Absent: respiratory distress, wheezes, rales, rhonchi, stridor Cardiovascular Exam: Present: normal rhythm, tachycardia, normal heart sounds. Absent: systolic murmur, diastolic murmur, rubs, gallop, clicks GI/Abdominal exam: Present: soft, normal bowel sounds. Absent: distended, tenderness, guarding, rebound, rigid Extremities exam: Present: normal inspection, full ROM, normal capillary refill. Absent: tenderness, pedal edema, joint swelling, calf tenderness Right Shoulder Exam: Present: normal inspection, swelling, tenderness over AC joint (mild). Absent: full ROM, tenderness Back exam: Present: normal inspection Neurological exam: Present: alert, oriented X3, CN II-XII intact Psychiatric exam: Present: normal affect, normal mood Skin exam: Present: warm, dry, intact, normal color. Absent: rash Course Vital Signs 12/07/18 20:06 Temperature 98.5 F Pulse Rate 113 H Respiratory 18 Rate Blood Pressure 133/82 O2 Sat by Pulse 100 Oximetry - Reevaluation(s) Reevaluation #1: 12/07/18 21:40 Medical records reviewed Reevaluation #2: 12/07/18 21:40 Symptoms controlled or improved here in the ER Reevaluation #3: 12/07/18 21:40 taken to [facility] 7 technique for shoulder right shoulder, patient does have significant muscle spasm but is improved Medical Decision Making - Medical Decision Making HEENT female the ER for evaluation of right shoulder strain pain. Slipped on her right shoulder x-rays negative. Patient to continue exercise range of motion both passive and active, anti-inflammatories as directed - Radiology Data Radiology results: report reviewed (X-ray right shoulder is negative for acute disease), image reviewed Disposition Clinical Impression: Right shoulder pain, Strain of shoulder Disposition: HOME SELF-CARE Condition: Good Instructions (If sedation given, give patient instructions): Rotator Cuff Tendinitis (ED), Shoulder Sprain (ED) Prescriptions: Diazepam [Valium] 5 mg PO TID PRN 3 Days #9 tab PRN Reason: Muscle Spasm Is patient prescribed a controlled substance at d/c from ED?: No Referrals: Armando Gillespie DO [Primary Care Provider] - 1-2 days
--- NOTE | 2018-12-07 20:51 | XR ---
EXAMINATION TYPE: XR shoulder complete RT DATE OF EXAM: 12/07/2018 COMPARISON: NONE HISTORY: Shoulder pain TECHNIQUE: 3 views FINDINGS: I see no fracture nor dislocation. Joint spaces are normal. IMPRESSION: Negative right shoulder exam.
[2018-12-07] MEDS ORDERED: Acetaminophen-Codeine 300-30mg TAB PO STA (21:29)
[2018-12-07] MEDS ORDERED: ACET/COD 300 MG/30 MG STARTER PACK 6 TAB BTL PO STA (21:29)
[2018-12-07 21:41] VITALS: BP 128/87; PULSE 90; RESP 16; TEMP 98.2
== END 2018-12-07 21:40 | disposition home or self-care (01) ==
LOC: EC 20:03
DX: S46.911A Strain of unspecified muscle, fascia and tendon at shoulder and upper arm level, right arm, initial encounter (principal); F31.9 Bipolar disorder, unspecified; K21.9 Gastro-esophageal reflux disease without esophagitis; Z79.899 Other long term (current) drug therapy; Z87.891 Personal history of nicotine dependence; Z88.6 Allergy status to analgesic agent; Z91.040 Latex allergy status; Z88.0 Allergy status to penicillin; Z88.2 Allergy status to sulfonamides; Z88.8 Allergy status to other drugs, medicaments and biological substances; Z85.820 Personal history of malignant melanoma of skin; W18.49XA Other slipping, tripping and stumbling without falling, initial encounter; Y93.84 Activity, sleeping
CPT/HCPCS: 99284; 96372; 73030; J1885

== ENCOUNTER 2018-12-28 00:30 | Emergency (ER) | payer OTHER ==
[2018-12-28] MEDS ORDERED: KETOROLAC 30 MG/ML 1 ML VIAL IVP STA (01:00)
[2018-12-28] MEDS ORDERED: MORPHINE SULFATE 4 MG/ML SYRINGE IV STA (01:00)
[2018-12-28 01:11] LABS: Basophils # (A) 0.3 k/uL (0-0.2); Basophils % (A) 2 %; Eosinophils # (A) 0.3 k/uL (0-0.7); Eosinophils % (A) 2 %; HGB 13.8 gm/dL (11.4-16.0); Lymphocytes % (A) 26 %; MCH 28.6 pg (25.0-35.0); MCHC 33.6 g/dL (31.0-37.0); MCV 85.2 fL (80.0-100.0); Mean Platelet Volume 5.6; Monocytes # (A) 0.8 k/uL (0-1.0); Monocytes % (A) 5 %; Neutrophils # (A) 10.1 k/uL (1.3-7.7); Neutrophils % (A) 65 %; Platelet Count 412 k/uL (150-450); RBC 4.81 m/uL (3.80-5.40); RDW 12.8 % (11.5-15.5); WBC 15.6 k/uL (3.8-10.6)
[2018-12-28 01:15] LABS: Appearance,Urine Cloudy (Clear); Bilirubin,Urine Negative (Negative); Blood,Urine Negative (Negative); Color,Urine Yellow; Glucose,Urine (UA) Negative (Negative); Ketones,Urine Negative (Negative); Leukocyte Esterase,Urine Small (Negative); Mucus,Urine Rare /hpf; Nitrite,Urine Negative (Negative); PH, Urine 5.5 (5.0-8.0); Protein,Urine Negative (Negative); RBC,Urine 1 /hpf (0-5); Specific Gravity,Urine 1.016 (1.001-1.035); Squamous Epithelial Cell,Urine 4 /hpf (0-4); Urobilinogen,Urine <2.0 mg/dL (<2.0); WBC,Urine 2 /hpf (0-5)
[2018-12-28 01:25] LABS: African American GFR (CKD) >90 (>60 ml/min/1.73 sqM); Anion Gap 10 mmol/L; Blood Urea Nitrogen 15 mg/dL (7-17); C Reactive Protein 18.3 mg/L (<10.0); Calcium 10.1 mg/dL (8.4-10.2); Carbon Dioxide 24 mmol/L (22-30); Chloride 103 mmol/L (98-107); Glucose 88 mg/dL (74-99); Non-African American GFR(CKD) 80 (>60 ml/min/1.73 sqM); Potassium 4.1 mmol/L (3.5-5.1); Sodium 137 mmol/L (137-145)
[2018-12-28] MEDS ORDERED: HYDROmorphone 1 MG/ML 1 ML SYRINGE IVP STA (02:09)
[2018-12-28] MEDS ORDERED: FAMOTIDINE 20 MG/2 ML VIAL IV STA (03:55)
--- NOTE | 2018-12-28 03:55 | ED ---
Back Pain [facility] - General Chief Complaint: Back Pain/Injury Stated Complaint: Back pain Time Seen by Provider: 12/28/18 00:50 Source: patient, family Limitations: no limitations - History of Present Illness MD Complaint: back pain -: hour(s) Similar Symptoms Previously: Yes Place: home Radiation: right leg Severity: severe Quality: sharp Consistency: constant Improves With: none Worsens With: movement Context: bending Associated Symptoms: denies other symptoms - Related Data Home Medications Medication Instructions Recorded Confirmed Divalproex [Depakote] 225 mg PO TID 10/16/13 06/19/14 Hydrocodone/Acetaminophen [[place] 1 each PO TID PRN 10/16/13 06/19/14 7.5-325] Ibuprofen [Motrin] 800 mg PO Q6HR PRN 06/19/14 06/19/14 Amitriptyline HCl [Elavil] 25 mg PO HS 07/23/15 07/27/15 Pantoprazole Sodium [Protonix] 20 mg PO DAILY 07/23/15 07/27/15 oxyCODONE-APAP 10-325MG [Percocet 1 tab PO Q6HR PRN 07/23/15 07/27/15 10-325 mg] Previous Rx's Medication Instructions Recorded Famotidine [Pepcid] 20 mg PO BID #28 tablet 10/16/13 Metoclopramide [Reglan] 10 mg PO TID PRN #10 tab 10/16/13 Ibuprofen [Motrin] 600 mg PO Q8HR PRN #30 tab 09/15/17 Dicyclomine [Bentyl] 20 mg PO QID #15 tablet 05/07/18 Ibuprofen [Motrin] 600 mg PO Q8HR PRN #20 tab 05/07/18 Ondansetron Odt [Zofran ODT] 4 mg PO Q8HR PRN #10 tab 05/07/18 Ibuprofen [Motrin] 600 mg PO Q8HR PRN #30 tab 09/24/18 Diazepam [Valium] 5 mg PO TID PRN 3 Days #9 tab 12/07/18 Methocarbamol [Robaxin-750] 750 mg PO TID PRN #30 tablet 12/28/18 predniSONE 20 mg PO BID #8 tab 12/28/18 Allergies Allergy/AdvReac Type Severity Reaction Status Date / Time aspirin Allergy Rash/Hives Verified 12/28/18 00:36 divalproex sodium Allergy Chest Verified 12/28/18 00:36 [From Depakote] Pain,agitated and violent gabapentin Allergy Chest Verified 12/28/18 00:36 Pain,agitated and voilent latex Allergy Rash/Hives Verified 12/28/18 00:36 lithium [[place]] Allergy Confusion Verified 12/28/18 00:36 Penicillins Allergy Rash/Hives Verified 12/28/18 00:36 Sulfa (Sulfonamide Allergy Rash/Hives Verified 12/28/18 00:36 Antibiotics) Review of Systems ROS Statement: Those systems with pertinent positive or pertinent negative responses have been documented in the HPI. ROS Other: All systems not noted in ROS Statement are negative. Constitutional: Denies: fever, chills, weakness Respiratory: Denies: cough, dyspnea Cardiovascular: Denies: chest pain, palpitations Gastrointestinal: Denies: abdominal pain, vomiting, diarrhea, constipation Genitourinary: Denies: dysuria, hematuria Musculoskeletal: Reports: as per HPI, back pain Skin: Denies: rash Neurological: Denies: weakness, numbness, paresthesias Past Medical History Past Medical History: Asthma, Cancer, GERD/Reflux Additional Past Medical History / Comment(s): left sided abdominal pain,cyst to ovary,melanoma-jaw line, hernia, History of Any Multi-Drug Resistant Organisms: None Reported Past Surgical History: Adenoidectomy, Orthopedic Surgery, Tonsillectomy, Tubal Ligation, Uterine Ablation Additional Past Surgical History / Comment(s): labial cyst removal, carpal tunnel bilat, Past Anesthesia/Blood Transfusion Reactions: No Reported Reaction Past Psychological History: Bipolar, Depression, PTSD, Schizophrenia Smoking Status: Former smoker Past Alcohol Use History: None Reported Past Drug Use History: None Reported - Past Family History Mother Family Medical History: Cancer Additional Family Medical History / Comment(s): breast Father Additional Family Medical History / Comment(s): w/aneurysm General Exam Limitations: no limitations General appearance: alert, in no apparent distress Head exam: Present: atraumatic, normocephalic Eye exam: Present: normal appearance. Absent: scleral icterus, conjunctival injection Respiratory exam: Present: normal lung sounds bilaterally. Absent: respiratory distress, wheezes, rales, rhonchi, stridor Cardiovascular Exam: Present: regular rate, normal rhythm, normal heart sounds. Absent: systolic murmur, diastolic murmur, rubs, gallop GI/Abdominal exam: Present: soft. Absent: distended, tenderness, guarding, rebound, rigid, mass, pulsatile mass, hernia Extremities exam: Present: normal inspection, normal capillary refill. Absent: pedal edema, calf tenderness Back exam: Present: normal inspection, paraspinal tenderness. Absent: CVA tenderness (R), CVA tenderness (L), vertebral tenderness Neurological exam: Present: alert, normal gait, reflexes normal. Absent: motor sensory deficit Skin exam: Present: warm, dry, intact, normal color. Absent: rash Course Vital Signs 12/28/18 12/28/18 00:32 04:20 Temperature 99.3 F 98.1 F Pulse Rate 110 H 84 Respiratory 20 18 Rate Blood Pressure 155/96 137/62 O2 Sat by Pulse 100 98 Oximetry Medical Decision Making - Medical Decision Making This patient is a 38-year-old woman presenting with lower back pain consistent with sciatic nerve pain. The patient is not having weakness or numbness of the extremities. No change in bladder or bowel function. No saddle anesthesia. She has had improvement following analgesics, and we discussed appropriate further care and follow-up as well as return parameters. - Lab Data Result diagrams: 12/28/18 00:40 12/28/18 00:40 Lab Results 12/28/18 12/28/18 12/28/18 Range/Units 00:40 00:40 00:40 WBC 15.6 H (3.8-10.6) k/uL RBC 4.81 (3.80-5.40) m/uL Hgb 13.8 (11.4-16.0) gm/dL Hct 41.0 (34.0-46.0) % MCV 85.2 (80.0-100.0) fL MCH 28.6 (25.0-35.0) pg MCHC 33.6 (31.0-37.0) g/dL RDW 12.8 (11.5-15.5) % Plt Count 412 (150-450) k/uL Neutrophils % 65 % Lymphocytes % 26 % Monocytes % 5 % Eosinophils % 2 % Basophils % 2 % Neutrophils # 10.1 H (1.3-7.7) k/uL Lymphocytes # 4.0 (1.0-4.8) k/uL Monocytes # 0.8 (0-1.0) k/uL Eosinophils # 0.3 (0-0.7) k/uL Basophils # 0.3 H (0-0.2) k/uL Sodium 137 (137-145) mmol/L Potassium 4.1 (3.5-5.1) mmol/L Chloride 103 (98-107) mmol/L Carbon Dioxide 24 (22-30) mmol/L Anion Gap 10 mmol/L BUN 15 (7-17) mg/dL Creatinine 0.91 (0.52-1.04) mg/dL Est GFR (CKD-EPI)AfAm >90 (>60 ml/min/1.73 sqM) Est GFR (CKD-EPI)NonAf 80 (>60 ml/min/1.73 sqM) Glucose 88 (74-99) mg/dL Calcium 10.1 (8.4-10.2) mg/dL C-Reactive Protein 18.3 H (<10.0) mg/L Urine Color Yellow Urine Appearance Cloudy H (Clear) Urine pH 5.5 (5.0-8.0) Ur Specific [place] 1.016 (1.001-1.035) Urine Protein Negative (Negative) Urine Glucose (UA) Negative (Negative) Urine Ketones Negative (Negative) Urine Blood Negative (Negative) Urine Nitrite Negative (Negative) Urine Bilirubin Negative (Negative) Urine Urobilinogen <2.0 (<2.0) mg/dL Ur Leukocyte Esterase Small H (Negative) Urine RBC 1 (0-5) /hpf Urine WBC 2 (0-5) /hpf Ur Squamous Epith Cells 4 (0-4) /hpf Urine Mucus Rare H (None) /hpf Urine HCG, Qual (Not Detectd) 12/28/18 Range/Units 00:40 WBC (3.8-10.6) k/uL RBC (3.80-5.40) m/uL Hgb (11.4-16.0) gm/dL Hct (34.0-46.0) % MCV (80.0-100.0) fL MCH (25.0-35.0) pg MCHC (31.0-37.0) g/dL RDW (11.5-15.5) % Plt Count (150-450) k/uL Neutrophils % % Lymphocytes % % Monocytes % % Eosinophils % % Basophils % % Neutrophils # (1.3-7.7) k/uL Lymphocytes # (1.0-4.8) k/uL Monocytes # (0-1.0) k/uL Eosinophils # (0-0.7) k/uL Basophils # (0-0.2) k/uL Sodium (137-145) mmol/L Potassium (3.5-5.1) mmol/L Chloride (98-107) mmol/L Carbon Dioxide (22-30) mmol/L Anion Gap mmol/L BUN (7-17) mg/dL Creatinine (0.52-1.04) mg/dL Est GFR (CKD-EPI)AfAm (>60 ml/min/1.73 sqM) Est GFR (CKD-EPI)NonAf (>60 ml/min/1.73 sqM) Glucose (74-99) mg/dL Calcium (8.4-10.2) mg/dL C-Reactive Protein (<10.0) mg/L Urine Color Urine Appearance (Clear) Urine pH (5.0-8.0) Ur Specific [place] (1.001-1.035) Urine Protein (Negative) Urine Glucose (UA) (Negative) Urine Ketones (Negative) Urine Blood (Negative) Urine Nitrite (Negative) Urine Bilirubin (Negative) Urine Urobilinogen (<2.0) mg/dL Ur Leukocyte Esterase (Negative) Urine RBC (0-5) /hpf Urine WBC (0-5) /hpf Ur Squamous Epith Cells (0-4) /hpf Urine Mucus (None) /hpf Urine HCG, Qual Not Detected (Not Detectd) Disposition Clinical Impression: Lumbar radiculopathy Disposition: HOME SELF-CARE Condition: Good Instructions (If sedation given, give patient instructions): Acute Low Back Pain (ED) Prescriptions: predniSONE 20 mg PO BID #8 tab Methocarbamol [Robaxin-750] 750 mg PO TID PRN #30 tablet PRN Reason: pain Is patient prescribed a controlled substance at d/c from ED?: No Referrals: Armando Gillespie DO [Primary Care Provider] - 1-2 days
[2018-12-28 04:21] VITALS: BP 137/62; PULSE 84; RESP 18; TEMP 98.1
== END 2018-12-28 04:21 | disposition home or self-care (01) ==
LOC: EC 00:30
DX: M54.16 Radiculopathy, lumbar region (principal); M54.40 Lumbago with sciatica, unspecified side; K21.9 Gastro-esophageal reflux disease without esophagitis; F31.9 Bipolar disorder, unspecified; Z79.899 Other long term (current) drug therapy; Z88.0 Allergy status to penicillin; Z88.2 Allergy status to sulfonamides; Z91.040 Latex allergy status; Z91.048 Other nonmedicinal substance allergy status; Z88.8 Allergy status to other drugs, medicaments and biological substances; Z88.6 Allergy status to analgesic agent; Z87.891 Personal history of nicotine dependence; Z85.820 Personal history of malignant melanoma of skin; Z98.890 Other specified postprocedural states
CPT/HCPCS: 36415; 80048; 85025; 86140; 81001; 81025; 99283; 96374; 96375 ×3; J2270; J1885; J1170

== ENCOUNTER 2019-03-31 16:15 | Emergency (ER) | payer OTHER ==
[2019-03-31] MEDS ORDERED: IBUPROFEN 600 MG TAB PO STA (16:38)
[2019-03-31] MEDS ORDERED: ACETAMINOPHEN TAB 500 MG TAB PO STA (16:38)
[2019-03-31] MEDS ORDERED: guaiFENesin-DM 600/30MG 1 EACH TAB.ER.12H PO STA (16:44)
--- NOTE | 2019-03-31 17:25 | XR ---
EXAMINATION TYPE: XR chest 2V DATE OF EXAM: 03/31/2019 COMPARISON: 05/12/2010 HISTORY: 38-year-old female with cough and congestion TECHNIQUE: PA and lateral views FINDINGS: The cardiomediastinal silhouette, aorta, and pulmonary vasculature are within normal limits. Mild per ibronchial cuffing is noted. No consolidation or pleural effusion. IMPRESSION: Mild peribronchial cuffing could reflect bronchitis or asthma. No focal infiltrate.
[2019-03-31 17:29] LABS: Appearance,Urine Cloudy (Clear); Bilirubin,Urine Negative (Negative); Blood,Urine Negative (Negative); Color,Urine Yellow; Glucose,Urine (UA) Negative (Negative); Ketones,Urine Negative (Negative); Leukocyte Esterase,Urine Negative (Negative); Mucus,Urine Many /hpf; Nitrite,Urine Negative (Negative); Protein,Urine Trace (Negative); RBC,Urine <1 /hpf (0-5); Specific Gravity,Urine 1.019 (1.001-1.035); Squamous Epithelial Cell,Urine 17 /hpf (0-4); Urobilinogen,Urine <2.0 mg/dL (<2.0); WBC,Urine 1 /hpf (0-5)
--- NOTE | 2019-03-31 17:54 | ED ---
General Adult HPI - General Chief complaint: Abdominal Pain Stated complaint: abd pain/sore throat Time Seen by Provider: 03/31/19 16:28 Source: patient Mode of arrival: ambulatory Limitations: no limitations - History of Present Illness Initial comments: 38-year-old female patient presents to the emergency department today for evaluation of cough, congestion, sore throat. Patient is also has been experiencing headache and body aches. She is reporting a left-sided abdominal pain whenever she coughs. Patient say she's had symptoms for the last 2 days. States she is having normal bowel movements and urination. States she has been having hot and cold flashes, she has not taken any temperatures. Patient denies any throat swelling or difficulty swallowing. Denies any worst pain to one side or the other. Denies any rash. Denies any sick contacts. Has had tubal ligation denies chance of . She denies any shortness of breath or whee zing with her cough. Patient denies any recent chest pain, abdominal pain, nausea, vomiting, diarrhea, constipation, back pain, numbness, tingling, dizziness, weakness, hematuria, dysuria, urinary urgency, urinary frequency, headache, visual changes, or any other complaints. - Related Data Home Medications Medication Instructions Recorded Confirmed Divalproex [Depakote] 225 mg PO TID 10/16/13 06/19/14 Hydrocodone/Acetaminophen [[place] 1 each PO TID PRN 10/16/13 06/19/14 7.5-325] Ibuprofen [Motrin] 800 mg PO Q6HR PRN 06/19/14 06/19/14 Amitriptyline HCl [Elavil] 25 mg PO HS 07/23/15 07/27/15 Pantoprazole Sodium [Protonix] 20 mg PO DAILY 07/23/15 07/27/15 oxyCODONE-APAP 10-325MG [Percocet 1 tab PO Q6HR PRN 07/23/15 07/27/15 10-325 mg] Previous Rx's Medication Instructions Recorded Famotidine [Pepcid] 20 mg PO BID #28 tablet 10/16/13 Metoclopramide [Reglan] 10 mg PO TID PRN #10 tab 10/16/13 Ibuprofen [Motrin] 600 mg PO Q8HR PRN #30 tab 09/15/17 Dicyclomine [Bentyl] 20 mg PO QID #15 tablet 05/07/18 Ibuprofen [Motrin] 600 mg PO Q8HR PRN #20 tab 05/07/18 Ondansetron Odt [Zofran ODT] 4 mg PO Q8HR PRN #10 tab 05/07/18 Ibuprofen [Motrin] 600 mg PO Q8HR PRN #30 tab 09/24/18 Diazepam [Valium] 5 mg PO TID PRN 3 Days #9 tab 12/07/18 Methocarbamol [Robaxin-750] 750 mg PO TID PRN #30 tablet 12/28/18 predniSONE [Deltasone] 20 mg PO BID #8 tab 12/28/18 Acetaminophen Tab [Tylenol Tab] 1,000 mg PO Q6HR #40 tablet 03/31/19 guaiFENesin-DM 600/30MG [Mucinex 2 each PO Q12HR PRN #20 tab.er.12h 03/31/19 Dm] Allergies Allergy/AdvReac Type Severity Reaction Status Date / Time aspirin Allergy Rash/Hives Verified 03/31/19 16:24 divalproex sodium Allergy Chest Verified 03/31/19 16:24 [From Depakote] Pain,agitated and violent gabapentin Allergy Chest Verified 03/31/19 16:24 Pain,agitated and voilent latex Allergy Rash/Hives Verified 03/31/19 16:24 lithium [[place]] Allergy Confusion Verified 03/31/19 16:24 Penicillins Allergy Rash/Hives Verified 03/31/19 16:24 Sulfa (Sulfonamide Allergy Rash/Hives Verified 03/31/19 16:24 Antibiotics) Review of Systems ROS Statement: Those systems with pertinent positive or pertinent negative responses have been documented in the HPI. ROS Other: All systems not noted in ROS Statement are negative. Past Medical History Past Medical History: Asthma, Cancer, GERD/Reflux Additional Past Medical History / Comment(s): left sided abdominal pain,cyst to ovary,melanoma-jaw line, hernia, History of Any Multi-Drug Resistant Organisms: None Reported Past Surgical History: Adenoidectomy, Orthopedic Surgery, Tonsillectomy, Tubal Ligation, Uterine Ablation Additional Past Surgical History / Comment(s): labial cyst removal, carpal tunnel bilat, Past Anesthesia/Blood Transfusion Reactions: No Reported Reaction Past Psychological History: Bipolar, Depression, PTSD, Schizophrenia Smoking Status: Former smoker Past Alcohol Use History: None Reported Past Drug Use History: None Reported - Past Family History Mother Family Medical History: Cancer Additional Family Medical History / Comment(s): breast Father Additional Family Medical History / Comment(s): w/aneurysm General Exam Limitations: no limitations General appearance: alert, in no apparent distress, other (Physical well- developed, well-nourished adult female patient in no acute distress. Vital signs upon presentation are temperature 100.8F, pulse 111, respirations 20, blood pressure 137/88, pulse ox 100% on room air.) Eye exam: Present: normal appearance, PERRL, EOMI. Absent: scleral icterus, conjunctival injection, periorbital swelling ENT exam: Present: normal exam, mucous membranes moist, TM's normal bilaterally (Tympanic membranes are pearly without effusion). Absent: normal oropharynx (Pharyngeal erythema, no tonsillar hypertrophy, no exudate) Neck exam: Present: normal inspection. Absent: tenderness, meningismus, lymphadenopathy Respiratory exam: Present: normal lung sounds bilaterally. Absent: respiratory distress, wheezes, rales, rhonchi, stridor Cardiovascular Exam: Present: normal rhythm, tachycardia, normal heart sounds. Absent: systolic murmur, diastolic murmur, rubs, gallop, clicks GI/Abdominal exam: Present: soft, tenderness (Mild left upper quadrant), normal bowel sounds. Absent: distended, guarding, rebound, rigid Neurological exam: Present: alert, oriented X3, CN II-XII intact Psychiatric exam: Present: normal affect, normal mood Skin exam: Present: warm, dry, intact, normal color. Absent: rash Course Vital Signs 03/31/19 03/31/19 03/31/19 16:21 16:51 18:05 Temperature 100.8 F H 101.4 F H 99.4 F Pulse Rate 111 H 99 Respiratory 20 18 Rate Blood Pressure 137/88 135/92 O2 Sat by Pulse 100 97 Oximetry Medical Decision Making - Medical Decision Making 38-year-old female patient presents to the emergency department today for evaluation of upper respiratory symptoms and left-sided abdominal discomfort. Physical examination does reveal pharyngeal erythema. Lungs are clear to ausc ultation with good air movement. Patient states that the pain in her left abdomen comes with coughing. Chest x-ray shows no acute cardio pulmonary process, some mild or bronchial cuffing probably bronchitis. Patient was positive for influenza A. We did discuss use of Tamiflu, patient declines this medication. She is given Tylenol Motrin here. Some Mucinex. She reports cough is improved. She does feel somewhat better. She'll be discharged to follow up with the primary care physician for recheck in 1-2 days. She'll be given a prescription for Tylenol, Mucinex DM. Return parameters were discussed in detail. She verbalizes understanding and agrees with this plan. - Lab Data Lab Results 03/31/19 03/31/19 Range/Units 16:25 17:14 Urine Color Yellow Urine Appearance Cloudy H (Clear) Urine pH 6.0 (5.0-8.0) Ur Specific [place] 1.019 (1.001-1.035) Urine Protein Trace H (Negative) Urine Glucose (UA) Negative (Negative) Urine Ketones Negative (Negative) Urine Blood Negative (Negative) Urine Nitrite Negative (Negative) Urine Bilirubin Negative (Negative) Urine Urobilinogen <2.0 (<2.0) mg/dL Ur Leukocyte Esterase Negative (Negative) Urine RBC <1 (0-5) /hpf Urine WBC 1 (0-5) /hpf Ur Squamous Epith Cells 17 H (0-4) /hpf Urine Mucus Many H (None) /hpf Influenza Type A RNA Detected H (Not Detectd) Influenza Type B (PCR) Not Detected (Not Detectd) - Radiology Data Radiology results: report reviewed, image reviewed Two-view x-ray of the chest is obtained. Report is reviewed in its entirety. Impression by Dr. Pritchard shows mild peribronchial cuffing could reflect bronchit is or asthma. No focal infiltrate. Disposition Clinical Impression: Influenza A, Muscle strain Disposition: HOME SELF-CARE Condition: Good Instructions (If sedation given, give patient instructions): Muscle Strain (ED), Influenza (ED) Additional Instructions: Increase fluids. Rest. Take Tylenol Motrin alternating for pain and fever control. Follow-up with her primary care physician for recheck in 1-2 days. Return to the emergency department immediately for any new, worsening, or concerning symptoms. Prescriptions: guaiFENesin-DM 600/30MG [Mucinex Dm] 2 each PO Q12HR PRN #20 tab.er.12h PRN Reason: Cough Acetaminophen Tab [Tylenol Tab] 1,000 mg PO Q6HR #40 tablet Is patient prescribed a controlled substance at d/c from ED?: No Referrals: Meli Mason DO [Primary Care Provider] - 1-2 days Time of Disposition: 17:54
[2019-03-31 18:09] VITALS: BP 135/92; PULSE 99; RESP 18; TEMP 99.4
== END 2019-03-31 18:09 | disposition home or self-care (01) ==
LOC: EC 16:15
DX: J10.1 Influenza due to other identified influenza virus with other respiratory manifestations (principal); T14.8XXA Other injury of unspecified body region, initial encounter; F31.9 Bipolar disorder, unspecified; F20.9 Schizophrenia, unspecified; K21.9 Gastro-esophageal reflux disease without esophagitis; Z79.899 Other long term (current) drug therapy; Z88.6 Allergy status to analgesic agent; Z88.8 Allergy status to other drugs, medicaments and biological substances; Z91.048 Other nonmedicinal substance allergy status; Z88.0 Allergy status to penicillin; Z88.2 Allergy status to sulfonamides; Z87.891 Personal history of nicotine dependence; Z91.040 Latex allergy status; Z85.820 Personal history of malignant melanoma of skin
CPT/HCPCS: 71046; 81001; 87502; 99284

== ENCOUNTER 2019-08-15 00:34 | Emergency (ER) | payer OTHER ==
[2019-08-15] MEDS ORDERED: ONDANSETRON 4 MG TAB PO STA (01:44)
[2019-08-15] MEDS ORDERED: Acetaminophen-Codeine 300-30mg TAB PO STA (01:45)
--- NOTE | 2019-08-15 01:48 | XR ---
EXAMINATION TYPE: XR ankle complete RT DATE OF EXAM: 08/15/2019 COMPARISON: NONE HISTORY: Ankle pain TECHNIQUE: 3 views FINDINGS: Ankle mortise is anatomic. I see no fracture nor dislocation. Joint spaces are normal. IMPRESSION: Negative right ankle exam.
--- NOTE | 2019-08-15 01:49 | XR ---
EXAMINATION TYPE: XR knee 4V RT DATE OF EXAM: 08/15/2019 COMPARISON: 07/28/2015 HISTORY: Pain TECHNIQUE: 4 views FINDINGS: I see no fracture nor dislocation. Joint spaces are normal. There is no sign of joint effus ion. IMPRESSION: Negative right knee exam. No change.
--- NOTE | 2019-08-15 01:50 | XR ---
EXAMINATION TYPE: XR tibia fibula RT DATE OF EXAM: 08/15/2019 COMPARISON: NONE HISTORY: Pain TECHNIQUE: 2 views FINDINGS: I see no fracture nor dislocation. Joint spaces are normal. Soft tissues appear normal. IMPRESSION: Negative right tibia and fibula exam.
--- NOTE | 2019-08-15 02:35 | ED ---
General Adult HPI - General Chief complaint: Extremity Problem,Nontraumatic Stated complaint: RT foot injury Time Seen by Provider: 08/15/19 01:08 Source: patient, RN notes reviewed, old records reviewed Mode of arrival: ambulatory Limitations: no limitations - History of Present Illness Initial comments: 39-year-old female patient receive a chief complaint of right ankle pain. Patient reports that 3 days ago she stepped out of the top when she stepped out of the tub she felt a pain in her right lateral malleolus region. Patient was discussed and she did pain with ambulation and she believes that she is having some pain radiating up the lateral aspect of her fibula. She denies any posterior tenderness. Denies any other complaints. Systemic: Pt denies fatigue, fever/chills, rash. Pt denies weakness, night sweats, weight loss. Neuro: Pt denies headache, visual disturbances, syncope or pre-syncope. HEENT: Pt denies ocular discharge or irritation, otalgia, rhinorrhea, pharyngitis or notable lymphadenopathy. Cardiopulmonary: Pt denies chest pain, SOB, heart palpitations, dyspnea on exertion. Abdominal/GI: Pt denies abdominal pain, n/v/d. : Pt denies dysuria, burning w/ urination, frequency/urgency. Denies new onset urinary or bowel incontinence. MSK: Pt denies loss of strength or function in extremities. Neuro: Pt denies new onset weakness, paresthesias. - Related Data Home Medications Medication Instructions Recorded Confirmed Divalproex [Depakote] 225 mg PO TID 10/16/13 06/19/14 Hydrocodone/Acetaminophen [[place] 1 each PO TID PRN 10/16/13 06/19/14 7.5-325] Ibuprofen [Motrin] 800 mg PO Q6HR PRN 06/19/14 06/19/14 Amitriptyline HCl [Elavil] 25 mg PO HS 07/23/15 07/27/15 Pantoprazole Sodium [Protonix] 20 mg PO DAILY 07/23/15 07/27/15 oxyCODONE-APAP 10-325MG [Percocet 1 tab PO Q6HR PRN 07/23/15 07/27/15 10-325 mg] Previous Rx's Medication Instructions Recorded Famotidine [Pepcid] 20 mg PO BID #28 tablet 10/16/13 Metoclopramide [Reglan] 10 mg PO TID PRN #10 tab 10/16/13 Ibuprofen [Motrin] 600 mg PO Q8HR PRN #30 tab 09/15/17 Dicyclomine [Bentyl] 20 mg PO QID #15 tablet 05/07/18 Ibuprofen [Motrin] 600 mg PO Q8HR PRN #20 tab 05/07/18 Ondansetron Odt [Zofran ODT] 4 mg PO Q8HR PRN #10 tab 05/07/18 Ibuprofen [Motrin] 600 mg PO Q8HR PRN #30 tab 09/24/18 Diazepam [Valium] 5 mg PO TID PRN 3 Days #9 tab 12/07/18 Methocarbamol [Robaxin-750] 750 mg PO TID PRN #30 tablet 12/28/18 predniSONE [Deltasone] 20 mg PO BID #8 tab 12/28/18 Acetaminophen Tab [Tylenol Tab] 1,000 mg PO Q6HR #40 tablet 03/31/19 guaiFENesin-DM 600/30MG [Mucinex 2 each PO Q12HR PRN #20 tab.er.12h 03/31/19 Dm] Allergies Allergy/AdvReac Type Severity Reaction Status Date / Time aspirin Allergy Rash/Hives Verified 08/15/19 00:45 divalproex sodium Allergy Chest Verified 08/15/19 00:45 [From Depakote] Pain,agitated and violent gabapentin Allergy Chest Verified 08/15/19 00:45 Pain,agitated and voilent latex Allergy Rash/Hives Verified 08/15/19 00:45 lithium [[place]] Allergy Confusion Verified 08/15/19 00:45 Penicillins Allergy Rash/Hives Verified 08/15/19 00:45 Sulfa (Sulfonamide Allergy Rash/Hives Verified 08/15/19 00:45 Antibiotics) Review of Systems ROS Statement: Those systems with pertinent positive or pertinent negative responses have been documented in the HPI. ROS Other: All systems not noted in ROS Statement are negative. Past Medical History Past Medical History: Asthma, Cancer, GERD/Reflux Additional Past Medical History / Comment(s): left sided abdominal pain,cyst to ovary,melanoma-jaw line, hernia, History of Any Multi-Drug Resistant Organisms: None Reported Past Surgical History: Adenoidectomy, Orthopedic Surgery, Tonsillectomy, Tubal Ligation, Uterine Ablation Additional Past Surgical History / Comment(s): labial cyst removal, carpal tunnel bilat, Past Anesthesia/Blood Transfusion Reactions: No Reported Reaction Past Psychological History: Bipolar, Depression, PTSD, Schizophrenia Smoking Status: Former smoker Past Alcohol Use History: None Reported Past Drug Use History: None Reported - Past Family History Mother Family Medical History: Cancer Additional Family Medical History / Comment(s): breast Father Additional Family Medical History / Comment(s): w/aneurysm General Exam - General Exam Comments Initial Comments: Constitutional: NAD, AOX3, Pt has pleasant affect. HEENT: NC/AT, trachea midline, neck supple, no lymphadenopathy.External ears appear normal, without discharge. Mucous membranes moist. EOM intact. There is no scleral icterus. No pallor noted. Cardiopulmonary: RRR, no murmurs, rubs or gallops, no JVD noted. Lungs CTAB in anterior and posterior greco. No peripheral edema. Abdominal exam: Abdomen soft and non-distended. Abdomen non-tender to palpation in all 4 quadrants. Bowel sounds active in LLQ. No hepatosplenomegaly. No ecchymosis Neuro: CN II-XII grossly intact. No nuchal rigidity. No raccon eyes, no arroyo sign, no hemotympanum. No cervical spinal tenderness. MSK: Right lateral malleolus mildly tender to palpation. No other areas of tenderness. Neurovascularly intact. Full active range of motion of lower extremity. Full active ROM in upper and lower extremities, 5/5 stregnth. Limitations: no limitations Course Vital Signs 08/15/19 00:40 Temperature 98.3 F Pulse Rate 90 Respiratory 18 Rate Blood Pressure 141/91 O2 Sat by Pulse 98 Oximetry Medical Decision Making - Medical Decision Making 39-year-old female patient with the chief complaint of right ankle sprain. Patient vital signs stable, afebrile. Physical exam doesn't display mild tenderness to palpation in right lateral malleoli. Plain films are negative. Patient has a painful ambulation. Patient be placed in a stirrup splint. Please crutches will not weight-bear will follow-up with PCP and orthopedic consult and return to ER if condition worsens. Case discussed with Dr Carranza. Disposition Clinical Impression: Ankle sprain Disposition: HOME SELF-CARE Condition: Stable Instructions (If sedation given, give patient instructions): Ankle Stirrup Splint (ED), Ankle Sprain (ED) Additional Instructions: Continue to wear ankle stirrup splint. Use crutches do not bear weight on right lower extremity. Follow with orthopedic consult and primary care provider tomorrow. Return to ER if condition worsens. Is patient prescribed a controlled substance at d/c from ED?: No Referrals: Meli Mason DO [Primary Care Provider] - 1-2 days Adan Harrison DO [Doctor of Osteopathic Medicine] - 1-2 days
[2019-08-15] MEDS ORDERED: IBUPROFEN 600 MG STARTER PACK 4 TAB BTL PO STA (02:42)
[2019-08-15 10:33] VITALS: BP 150/93; PULSE 81; RESP 16; TEMP 98.3
== END 2019-08-15 03:10 | disposition home or self-care (01) ==
LOC: EC 00:34
DX: S93.401A Sprain of unspecified ligament of right ankle, initial encounter (principal); K21.9 Gastro-esophageal reflux disease without esophagitis; F32.9 Major depressive disorder, single episode, unspecified; Z87.891 Personal history of nicotine dependence; Z85.820 Personal history of malignant melanoma of skin; Z79.899 Other long term (current) drug therapy; Z88.6 Allergy status to analgesic agent; Z88.8 Allergy status to other drugs, medicaments and biological substances; Z91.040 Latex allergy status; Z88.0 Allergy status to penicillin; Z88.2 Allergy status to sulfonamides
CPT/HCPCS: 29515; 99284

== ENCOUNTER 2019-10-31 12:24 | Emergency (ER) | payer OTHER ==
[2019-10-31] MEDS ORDERED: HYDROmorphone 1 MG/ML 1 ML SYRINGE IM STA (13:20)
[2019-10-31] MEDS ORDERED: dexAMETHasone 4 MG TAB PO STA (13:20)
[2019-10-31] MEDS ORDERED: diazePAM 5 MG TAB PO STA (13:20)
[2019-10-31] MEDS ORDERED: LIDOCAINE 5% PATCH TOPICAL STA (13:30)
[2019-10-31 13:38] LABS: Appearance,Urine Clear (Clear); Bilirubin,Urine Negative (Negative); Blood,Urine Negative (Negative); Color,Urine Colorless; Glucose,Urine (UA) Negative (Negative); Ketones,Urine Negative (Negative); Leukocyte Esterase,Urine Negative (Negative); Nitrite,Urine Negative (Negative); Protein,Urine Negative (Negative); Specific Gravity,Urine 1.003 (1.001-1.035); Urobilinogen,Urine <2.0 mg/dL (<2.0)
[2019-10-31] MEDS ORDERED: traMADol 50 MG STARTER PACK 3 TAB BTL PO STA (13:39)
--- NOTE | 2019-10-31 13:39 | ED ---
Back Pain [facility] - General Chief Complaint: Back Pain/Injury Stated Complaint: back pain Time Seen by Provider: 10/31/19 12:53 Source: patient, RN notes reviewed, old records reviewed Limitations: no limitations - History of Present Illness Initial Comments: This is a 39-year-old female to the ER presents today for evaluation patient Dese for evaluation regards to back pain acute on chronic back pain patient does have recent MRI. Patient will follow-up with MRI as directed, patient is having worsening pain here in the ER MD Complaint: back pain -: days(s) Similar Symptoms Previously: Yes Place: home Radiation: buttocks, right leg Severity: moderate Quality: stabbing Consistency: constant Improves With: none Worsens With: none Context: fall Associated Symptoms: denies other symptoms - Related Data Home Medications Medication Instructions Recorded Confirmed Divalproex [Depakote] 225 mg PO TID 10/16/13 06/19/14 Hydrocodone/Acetaminophen [[place] 1 each PO TID PRN 10/16/13 06/19/14 7.5-325] Ibuprofen [Motrin] 800 mg PO Q6HR PRN 06/19/14 06/19/14 Amitriptyline HCl [Elavil] 25 mg PO HS 07/23/15 07/27/15 Pantoprazole Sodium [Protonix] 20 mg PO DAILY 07/23/15 07/27/15 oxyCODONE-APAP 10-325MG [Percocet 1 tab PO Q6HR PRN 07/23/15 07/27/15 10-325 mg] Previous Rx's Medication Instructions Recorded Famotidine [Pepcid] 20 mg PO BID #28 tablet 10/16/13 Metoclopramide [Reglan] 10 mg PO TID PRN #10 tab 10/16/13 Ibuprofen [Motrin] 600 mg PO Q8HR PRN #30 tab 09/15/17 Dicyclomine [Bentyl] 20 mg PO QID #15 tablet 05/07/18 Ibuprofen [Motrin] 600 mg PO Q8HR PRN #20 tab 05/07/18 Ondansetron Odt [Zofran ODT] 4 mg PO Q8HR PRN #10 tab 05/07/18 Ibuprofen [Motrin] 600 mg PO Q8HR PRN #30 tab 09/24/18 diazePAM [Valium] 5 mg PO TID PRN 3 Days #9 tab 12/07/18 Methocarbamol [Robaxin-750] 750 mg PO TID PRN #30 tablet 12/28/18 predniSONE [Deltasone] 20 mg PO BID #8 tab 12/28/18 Acetaminophen Tab [Tylenol Tab] 1,000 mg PO Q6HR #40 tablet 03/31/19 guaiFENesin-DM 600/30MG [Mucinex 2 each PO Q12HR PRN #20 tab.er.12h 03/31/19 Dm] Allergies Allergy/AdvReac Type Severity Reaction Status Date / Time aspirin Allergy Rash/Hives Verified 10/31/19 12:48 divalproex sodium Allergy Chest Verified 10/31/19 12:48 [From Depakote] Pain,agitated and violent gabapentin Allergy Chest Verified 10/31/19 12:48 Pain,agitated and voilent latex Allergy Rash/Hives Verified 10/31/19 12:48 lithium [[place]] Allergy Confusion Verified 10/31/19 12:48 Penicillins Allergy Rash/Hives Verified 10/31/19 12:48 Sulfa (Sulfonamide Allergy Rash/Hives Verified 10/31/19 12:48 Antibiotics) Review of Systems ROS Statement: Those systems with pertinent positive or pertinent negative responses have been documented in the HPI. ROS Other: All systems not noted in ROS Statement are negative. Past Medical History Past Medical History: Asthma, Cancer, GERD/Reflux Additional Past Medical History / Comment(s): left sided abdominal pain,cyst to ovary,melanoma-jaw line, hernia, History of Any Multi-Drug Resistant Organisms: None Reported Past Surgical History: Adenoidectomy, Orthopedic Surgery, Tonsillectomy, Tubal Ligation, Uterine Ablation Additional Past Surgical History / Comment(s): labial cyst removal, carpal tunnel bilat, Past Anesthesia/Blood Transfusion Reactions: No Reported Reaction Past Psychological History: Bipolar, Depression, PTSD, Schizophrenia Smoking Status: Former smoker Past Alcohol Use History: None Reported Past Drug Use History: None Reported - Past Family History Mother Family Medical History: Cancer Additional Family Medical History / Comment(s): breast Father Additional Family Medical History / Comment(s): w/aneurysm General Exam Limitations: no limitations General appearance: alert, in no apparent distress Head exam: Present: atraumatic, normocephalic, normal inspection Eye exam: Present: normal appearance, PERRL, EOMI. Absent: scleral icterus, conjunctival injection, periorbital swelling ENT exam: Present: normal exam, mucous membranes moist Neck exam: Present: normal inspection. Absent: tenderness, meningismus, lymphadenopathy Respiratory exam: Present: normal lung sounds bilaterally. Absent: respiratory distress, wheezes, rales, rhonchi, stridor Cardiovascular Exam: Present: regular rate, normal rhythm, normal heart sounds. Absent: systolic murmur, diastolic murmur, rubs, gallop, clicks GI/Abdominal exam: Present: soft, normal bowel sounds. Absent: distended, ten derness, guarding, rebound, rigid Extremities exam: Present: normal inspection, full ROM, normal capillary refill. Absent: tenderness, pedal edema, joint swelling, calf tenderness Back exam: Present: normal inspection Neurological exam: Present: alert, oriented X3, CN II-XII intact Psychiatric exam: Present: normal affect, normal mood Skin exam: Present: warm, dry, intact, normal color. Absent: rash Course Vital Signs 10/31/19 12:45 Temperature 98.3 F Pulse Rate 90 Respiratory 16 Rate Blood Pressure 132/85 O2 Sat by Pulse 97 Oximetry - Reevaluation(s) Reevaluation #1: 10/31/19 13:39 Medical record is reviewed Reevaluation #2: 10/31/19 13:39 Pain is improved Medical Decision Making - Medical Decision Making 39 female to the ER for evaluation of back pain acute on chronic pain is controlled patient discharged home Disposition Clinical Impression: Mechanical back pain, Strain of lumbar region Disposition: HOME SELF-CARE Condition: Good Instructions (If sedation given, give patient instructions): Acute Low Back Pain (ED) Is patient prescribed a controlled substance at d/c from ED?: No Referrals: Clover Almeida MD [Primary Care Provider] - 1-2 days
[2019-10-31 14:02] VITALS: BP 120/73; PULSE 76; RESP 18; TEMP 97.8
[2019-11-01] MEDS ORDERED: LIDOCAINE 5% PATCH TOPICAL SCH (09:00)
== END 2019-10-31 14:15 | disposition home or self-care (01) ==
LOC: EC 12:24
DX: S39.012A Strain of muscle, fascia and tendon of lower back, initial encounter (principal); K21.9 Gastro-esophageal reflux disease without esophagitis; F31.9 Bipolar disorder, unspecified; Z79.899 Other long term (current) drug therapy; Z88.0 Allergy status to penicillin; Z88.2 Allergy status to sulfonamides; Z88.6 Allergy status to analgesic agent; Z88.8 Allergy status to other drugs, medicaments and biological substances; Z91.040 Latex allergy status; Z91.048 Other nonmedicinal substance allergy status; Z87.891 Personal history of nicotine dependence; Z85.820 Personal history of malignant melanoma of skin; X58.XXXA Exposure to other specified factors, initial encounter
CPT/HCPCS: 81003; 99284; 96372; J8540; J1170

== ENCOUNTER 2019-11-16 17:23 | Emergency (ER) | payer OTHER ==
[2019-11-16 17:30] VITALS: TEMP 98.8
--- NOTE | 2019-11-16 17:43 | ED ---
Nausea/Vomiting/Diarrhea HPI - General Chief complaint: Nausea/Vomiting/Diarrhea Stated complaint: vomiting Time Seen by Provider: 11/16/19 17:34 Source: patient Mode of arrival: ambulatory Limitations: no limitations - History of Present Illness Initial comments: Patient 39-year-old female presenting to emergency Department with chief complaint nausea vomiting abdominal pain. Patient reports the pain started about 4 days ago with gradual increase in severity. Patient reports nausea with multiple episodes of nonbilious nonbloody vomiting. Reports most of abdominal pain is located in the upper abdominal region without any radiation. Denies any diarrhea. Denies any increased urgency frequency or dysuria. Denies any vaginal discharge, itchiness or foul smell. Denies hematuria, hematochezia or melena. Denies any chest pain shortness of breath. Surgical History of C- section. She also reports history of migraines and is currently seeing for treatment. Current migraine is one sided with photophobia and nausea. This was a gradual onset and not the worst headache of her life. - Related Data Home Medications Medication Instructions Recorded Confirmed Divalproex [Depakote] 225 mg PO TID 10/16/13 06/19/14 Hydrocodone/Acetaminophen [[place] 1 each PO TID PRN 10/16/13 06/19/14 7.5-325] Ibuprofen [Motrin] 800 mg PO Q6HR PRN 06/19/14 06/19/14 Amitriptyline HCl [Elavil] 25 mg PO HS 07/23/15 07/27/15 Pantoprazole Sodium [Protonix] 20 mg PO DAILY 07/23/15 07/27/15 oxyCODONE-APAP 10-325MG [Percocet 1 tab PO Q6HR PRN 07/23/15 07/27/15 10-325 mg] Previous Rx's Medication Instructions Recorded Famotidine [Pepcid] 20 mg PO BID #28 tablet 10/16/13 Metoclopramide [Reglan] 10 mg PO TID PRN #10 tab 10/16/13 Ibuprofen [Motrin] 600 mg PO Q8HR PRN #30 tab 09/15/17 Dicyclomine [Bentyl] 20 mg PO QID #15 tablet 05/07/18 Ibuprofen [Motrin] 600 mg PO Q8HR PRN #20 tab 05/07/18 Ondansetron Odt [Zofran ODT] 4 mg PO Q8HR PRN #10 tab 05/07/18 Ibuprofen [Motrin] 600 mg PO Q8HR PRN #30 tab 09/24/18 diazePAM [Valium] 5 mg PO TID PRN 3 Days #9 tab 12/07/18 Methocarbamol [Robaxin-750] 750 mg PO TID PRN #30 tablet 12/28/18 predniSONE [Deltasone] 20 mg PO BID #8 tab 12/28/18 Acetaminophen Tab [Tylenol Tab] 1,000 mg PO Q6HR #40 tablet 03/31/19 guaiFENesin-DM 600/30MG [Mucinex 2 each PO Q12HR PRN #20 tab.er.12h 03/31/19 Dm] Allergies Allergy/AdvReac Type Severity Reaction Status Date / Time aspirin Allergy Rash/Hives Verified 11/16/19 17:30 divalproex sodium Allergy Chest Verified 11/16/19 17:30 [From Depakote] Pain,agitated and violent gabapentin Allergy Chest Verified 11/16/19 17:30 Pain,agitated and voilent latex Allergy Rash/Hives Verified 11/16/19 17:30 lithium [[place]] Allergy Confusion Verified 11/16/19 17:30 Penicillins Allergy Rash/Hives Verified 11/16/19 17:30 Sulfa (Sulfonamide Allergy Rash/Hives Verified 11/16/19 17:30 Antibiotics) Review of Systems ROS Statement: Those systems with pertinent positive or pertinent negative responses have been documented in the HPI. ROS Other: All systems not noted in ROS Statement are negative. Past Medical History Past Medical History: Asthma, Cancer, GERD/Reflux Additional Past Medical History / Comment(s): left sided abdominal pain,cyst to ovary,melanoma-jaw line, hernia, History of Any Multi-Drug Resistant Organisms: None Reported Past Surgical History: Adenoidectomy, Orthopedic Surgery, Tonsillectomy, Tubal Ligation, Uterine Ablation Additional Past Surgical History / Comment(s): labial cyst removal, carpal tunnel bilat, Past Anesthesia/Blood Transfusion Reactions: No Reported Reaction Past Psychological History: Bipolar, Depression, PTSD, Schizophrenia Smoking Status: Former smoker Past Alcohol Use History: None Reported Past Drug Use History: None Reported - Past Family History Mother Family Medical History: Cancer Additional Family Medical History / Comment(s): breast Father Additional Family Medical History / Comment(s): w/aneurysm General Exam Limitations: no limitations General appearance: alert, appears intoxicated, obese Head exam: Present: atraumatic, normocephalic, normal inspection Eye exam: Present: normal appearance, PERRL, EOMI Pupils: Present: normal accommodation ENT exam: Present: normal exam, normal oropharynx, mucous membranes dry, TM's normal bilaterally, normal external ear exam Neck exam: Present: normal inspection, full ROM. Absent: tenderness Respiratory exam: Present: normal lung sounds bilaterally. Absent: respiratory distress, wheezes Cardiovascular Exam: Present: regular rate, normal rhythm, normal heart sounds GI/Abdominal exam: Present: soft, tenderness (Upper abdominal tenderness ). Absent: distended, guarding, rigid Extremities exam: Present: normal inspection, full ROM, normal capillary refill. Absent: tenderness Back exam: Present: normal inspection, full ROM. Absent: tenderness, CVA tenderness (R), CVA tenderness (L) Neurological exam: Present: alert, oriented X3, normal gait Psychiatric exam: Present: normal affect, normal mood Skin exam: Present: warm, dry, intact, normal color Course Vital Signs 11/16/19 17:28 Temperature 98.8 F Pulse Rate 95 Respiratory 17 Rate Blood Pressure 132/75 O2 Sat by Pulse 97 Oximetry Medical Decision Making - Medical Decision Making patient is a 39-year-old female presenting to the emergency department with chief complaint of abdominal pain nausea vomiting. On physical examination, patient has nonspecific upper abdominal pain. Patient was given IV fluids, morphine and antiemetics. Reevaluation patient reports improvement in the nausea and abdominal pain per her headache continues to persist. Patient then admitted to having this type of pain previously and it was only related to the migraines. Patient was given additional analgesia and IV fluids to help alleviate his symptoms. She sees Dr Harrell for migraine management but nothing has so far work. States she's had a recent MRI and is scheduled to have evaluation for a spine surgical procedure. She was advised to follow back with them. Strict return prescribed with thoroughly discussed patient was understanding and agreeable. Case discussed with physician. - Lab Data Result diagrams: 11/16/19 17:50 11/16/19 17:50 Lab Results 11/16/19 11/16/19 11/16/19 Range/Units 17:50 17:50 17:50 WBC 8.5 (3.8-10.6) k/uL RBC 5.01 (3.80-5.40) m/uL Hgb 14.1 (11.4-16.0) gm/dL Hct 42.9 (34.0-46.0) % MCV 85.5 (80.0-100.0) fL MCH 28.1 (25.0-35.0) pg MCHC 32.9 (31.0-37.0) g/dL RDW 13.1 (11.5-15.5) % Plt Count 373 (150-450) k/uL Neutrophils % 64 % Lymphocytes % 25 % Monocytes % 5 % Eosinophils % 2 % Basophils % 1 % Neutrophils # 5.4 (1.3-7.7) k/uL Lymphocytes # 2.2 (1.0-4.8) k/uL Monocytes # 0.5 (0-1.0) k/uL Eosinophils # 0.2 (0-0.7) k/uL Basophils # 0.1 (0-0.2) k/uL Sodium (137-145) mmol/L Potassium (3.5-5.1) mmol/L Chloride (98-107) mmol/L Carbon Dioxide (22-30) mmol/L Anion Gap mmol/L BUN (7-17) mg/dL Creatinine (0.52-1.04) mg/dL Est GFR (CKD-EPI)AfAm (>60 ml/min/1.73 sqM) Est GFR (CKD-EPI)NonAf (>60 ml/min/1.73 sqM) Glucose (74-99) mg/dL Calcium (8.4-10.2) mg/dL Total Bilirubin (0.2-1.3) mg/dL AST (14-36) U/L ALT (4-34) U/L Alkaline Phosphatase (38-126) U/L Total Protein (6.3-8.2) g/dL Albumin (3.5-5.0) g/dL Lipase (23-300) U/L Urine Color Light Yellow Urine Appearance Clear (Clear) Urine pH 6.5 (5.0-8.0) Ur Specific [place] 1.005 (1.001-1.035) Urine Protein Negative (Negative) Urine Glucose (UA) Negative (Negative) Urine Ketones Negative (Negative) Urine Blood Negative (Negative) Urine Nitrite Negative (Negative) Urine Bilirubin Negative (Negative) Urine Urobilinogen <2.0 (<2.0) mg/dL Ur Leukocyte Esterase Trace H (Negative) Urine RBC 2 (0-5) /hpf Urine WBC 1 (0-5) /hpf Ur Squamous Epith Cells 3 (0-4) /hpf Urine HCG, Qual Not Detected (Not Detectd) 11/16/19 Range/Units 17:50 WBC (3.8-10.6) k/uL RBC (3.80-5.40) m/uL Hgb (11.4-16.0) gm/dL Hct (34.0-46.0) % MCV (80.0-100.0) fL MCH (25.0-35.0) pg MCHC (31.0-37.0) g/dL RDW (11.5-15.5) % Plt Count (150-450) k/uL Neutrophils % % Lymphocytes % % Monocytes % % Eosinophils % % Basophils % % Neutrophils # (1.3-7.7) k/uL Lymphocytes # (1.0-4.8) k/uL Monocytes # (0-1.0) k/uL Eosinophils # (0-0.7) k/uL Basophils # (0-0.2) k/uL Sodium 137 (137-145) mmol/L Potassium 3.9 (3.5-5.1) mmol/L Chloride 106 (98-107) mmol/L Carbon Dioxide 24 (22-30) mmol/L Anion Gap 7 mmol/L BUN 13 (7-17) mg/dL Creatinine 0.86 (0.52-1.04) mg/dL Est GFR (CKD-EPI)AfAm >90 (>60 ml/min/1.73 sqM) Est GFR (CKD-EPI)NonAf 86 (>60 ml/min/1.73 sqM) Glucose 101 H (74-99) mg/dL Calcium 9.6 (8.4-10.2) mg/dL Total Bilirubin 0.7 (0.2-1.3) mg/dL AST 25 (14-36) U/L ALT 24 (4-34) U/L Alkaline Phosphatase 69 (38-126) U/L Total Protein 7.5 (6.3-8.2) g/dL Albumin 4.3 (3.5-5.0) g/dL Lipase 54 (23-300) U/L Urine Color Urine Appearance (Clear) Urine pH (5.0-8.0) Ur Specific [place] (1.001-1.035) Urine Protein (Negative) Urine Glucose (UA) (Negative) Urine Ketones (Negative) Urine Blood (Negative) Urine Nitrite (Negative) Urine Bilirubin (Negative) Urine Urobilinogen (<2.0) mg/dL Ur Leukocyte Esterase (Negative) Urine RBC (0-5) /hpf Urine WBC (0-5) /hpf Ur Squamous Epith Cells (0-4) /hpf Urine HCG, Qual (Not Detectd) Disposition Clinical Impression: Migraine headache Disposition: HOME SELF-CARE Condition: Stable Instructions (If sedation given, give patient instructions): Acute Headache (DC), Migraine Headache (ED) Additional Instructions: Continue taking the Zofran and she developed nausea. Follow-up with . Return to emergency department if symptoms worsen. Is patient prescribed a controlled substance at d/c from ED?: No Referrals: Clover Almeida MD [Primary Care Provider] - 1-2 days Time of Disposition: 19:26
[2019-11-16] MEDS ORDERED: PANTOPRAZOLE 40 MG/10 ML VIAL IVP STA (17:47)
[2019-11-16] MEDS ORDERED: ONDANSETRON 4 MG/2 ML VIAL IVP STA (17:47)
[2019-11-16] MEDS ORDERED: SODIUM CHLORIDE 0.9% 1,000 ML IV STA (17:47)
[2019-11-16] MEDS ORDERED: MORPHINE SULFATE 4 MG/ML SYRINGE IVP STA (17:57)
[2019-11-16 18:14] LABS: Basophils # (A) 0.1 k/uL (0-0.2); Basophils % (A) 1 %; Eosinophils # (A) 0.2 k/uL (0-0.7); Eosinophils % (A) 2 %; HCT 42.9 % (34.0-46.0); HGB 14.1 gm/dL (11.4-16.0); Lymphocytes # (A) 2.2 k/uL (1.0-4.8); Lymphocytes % (A) 25 %; MCH 28.1 pg (25.0-35.0); MCHC 32.9 g/dL (31.0-37.0); MCV 85.5 fL (80.0-100.0); Monocytes # (A) 0.5 k/uL (0-1.0); Monocytes % (A) 5 %; Neutrophils # (A) 5.4 k/uL (1.3-7.7); Neutrophils % (A) 64 %; Platelet Count 373 k/uL (150-450); RBC 5.01 m/uL (3.80-5.40); RDW 13.1 % (11.5-15.5); WBC 8.5 k/uL (3.8-10.6)
[2019-11-16 18:21] LABS: Appearance,Urine Clear (Clear); Bilirubin,Urine Negative (Negative); Blood,Urine Negative (Negative); Color,Urine Light Yellow; Glucose,Urine (UA) Negative (Negative); Ketones,Urine Negative (Negative); Leukocyte Esterase,Urine Trace (Negative); Nitrite,Urine Negative (Negative); PH, Urine 6.5 (5.0-8.0); Protein,Urine Negative (Negative); RBC,Urine 2 /hpf (0-5); Specific Gravity,Urine 1.005 (1.001-1.035); Squamous Epithelial Cell,Urine 3 /hpf (0-4); Urobilinogen,Urine <2.0 mg/dL (<2.0); WBC,Urine 1 /hpf (0-5)
[2019-11-16 18:30] LABS: ALT 24 U/L (4-34); AST 25 U/L (14-36); African American GFR (CKD) >90 (>60 ml/min/1.73 sqM); Albumin 4.3 g/dL (3.5-5.0); Alkaline Phosphatase 69 U/L (38-126); Anion Gap 7 mmol/L; Blood Urea Nitrogen 13 mg/dL (7-17); Calcium 9.6 mg/dL (8.4-10.2); Carbon Dioxide 24 mmol/L (22-30); Chloride 106 mmol/L (98-107); Glucose 101 mg/dL (74-99); Non-African American GFR(CKD) 86 (>60 ml/min/1.73 sqM); Potassium 3.9 mmol/L (3.5-5.1); Sodium 137 mmol/L (137-145); Total Bilirubin 0.7 mg/dL (0.2-1.3); Total Protein 7.5 g/dL (6.3-8.2)
[2019-11-16] MEDS ORDERED: diphenhydrAMINE 50 MG/ML 1 ML VIAL IVP STA (18:46)
[2019-11-16] MEDS ORDERED: KETOROLAC 15 MG/ML 1 ML VIAL IVP STA (18:46)
[2019-11-16] MEDS ORDERED: HYDROmorphone 1 MG/ML 1 ML SYRINGE IVP STA (19:20)
[2019-11-16 19:30] VITALS: BP 122/80; PULSE 74; RESP 16
== END 2019-11-16 19:56 | disposition home or self-care (01) ==
LOC: EC 17:23
DX: G43.909 Migraine, unspecified, not intractable, without status migrainosus (principal); R10.10 Upper abdominal pain, unspecified; F31.9 Bipolar disorder, unspecified; K21.9 Gastro-esophageal reflux disease without esophagitis; Z79.899 Other long term (current) drug therapy; Z90.89 Acquired absence of other organs; Z88.0 Allergy status to penicillin; Z88.2 Allergy status to sulfonamides; Z88.6 Allergy status to analgesic agent; Z88.8 Allergy status to other drugs, medicaments and biological substances; Z91.048 Other nonmedicinal substance allergy status; Z87.891 Personal history of nicotine dependence; Z98.51 Tubal ligation status
CPT/HCPCS: 36415; 80053; 83690; 85025; 81001; 81025; 99284; 96374; 96375 ×5; 96361; J2270; J1200; J2405; J1170; J1885; C9113

== ENCOUNTER 2020-01-12 13:49 | Emergency (ER) | payer OTHER ==
[2020-01-12 14:01] VITALS: RESP 18
[2020-01-12] MEDS ORDERED: SODIUM CHLORIDE 0.9% 1,000 ML IV STA (14:51)
[2020-01-12] MEDS ORDERED: METOCLOPRAMIDE 5 MG/ML 2 ML VIAL IVP STA (14:51)
[2020-01-12] MEDS ORDERED: KETOROLAC 15 MG/ML 1 ML VIAL IVP STA (14:51)
[2020-01-12] MEDS ORDERED: diphenhydrAMINE 50 MG/ML 1 ML VIAL IVP STA (14:51)
[2020-01-12] MEDS ORDERED: DEXAMETHASONE SOD PHOSPHATE 10 MG/ML 1 ML VIAL IV STA (14:52)
[2020-01-12] MEDS ORDERED: MAGNESIUM SULFATE-D5W PMX 1 GM in DEXTROSE/WATER 1 100ML.BAG IVPB ONE (14:52)
--- NOTE | 2020-01-12 14:52 | ED ---
General Adult HPI - General Chief complaint: Headache Stated complaint: Headache Source: patient Mode of arrival: ambulatory Limitations: no limitations - History of Present Illness Initial comments: Patient is a 39-year-old female with past mental history of migraine headaches who presents to the emergency department with reported headache. Significant other is at bedside and provides the history. States that the patient began having a headache last night which progressed through to this morning. She took her Esgic at home without any improvement in her symptoms. She has seen a neurologist for her headaches and this is what she is prescribed. States she occasionally has to come to the emergency department for migraine cocktails. Patient denies that her symptoms are any worse or different than her typical migraine headache. Denies any head trauma. No fevers or chills. Denies any neck stiffness. No sick contacts. No vision changes. Admits photophobia. No confusion reported from the patient. Admits to nausea without any vomiting. No concern for as she is homosexual. No other alleviating, precipitating or modifying factors - Related Data Home Medications Medication Instructions Recorded Confirmed Hydrocodone/Acetaminophen [[place] 1 tab PO TID PRN 10/16/13 01/12/20 7.5-325] Albuterol Inhaler [Ventolin Hfa 2 puff INHALATION RT-QID PRN 01/12/20 01/12/20 Inhaler] Butalb/Acetaminophen/Caffeine 1 tab PO Q4-6H PRN 01/12/20 01/12/20 [Esgic 50-325-40 mg Tablet] Diclofenac Sodium Gel [Voltaren 1 applic TOPICAL QID 01/12/20 01/12/20 Gel] Hydrocortisone Cream 1 applic TOPICAL BID PRN 01/12/20 01/12/20 [Hydrocortisone 2.5% Cream] Loratadine 10 mg PO DAILY 01/12/20 01/12/20 PARoxetine HCL [Paxil] 20 mg PO DAILY 01/12/20 01/12/20 Verapamil HCl [Verapamil ER] 180 mg PO DAILY 01/12/20 01/12/20 Vitamin B-6 25mg 25 mg PO DAILY 01/12/20 01/12/20 Previous Rx's Medication Instructions Recorded Acetaminophen Tab [Tylenol Tab] 1,000 mg PO Q6HR #40 tablet 03/31/19 Buta/APAP/Caf/Cod 74-650-57-30 1 cap PO Q6HR PRN 3 Days #12 cap 01/12/20 [Fioricet w/Cod 32-483-56-30MG] Allergies Allergy/AdvReac Type Severity Reaction Status Date / Time aspirin Allergy Rash/Hives Verified 01/12/20 15:55 divalproex sodium Allergy Chest Verified 01/12/20 15:55 [From Depakote] Pain,agitated and violent gabapentin Allergy Chest Verified 01/12/20 15:55 Pain,agitated and voilent latex Allergy Rash/Hives Verified 01/12/20 15:55 lithium [[place]] Allergy Confusion Verified 01/12/20 15:55 Penicillins Allergy Rash/Hives Verified 01/12/20 15:55 Sulfa (Sulfonamide Allergy Rash/Hives Verified 01/12/20 15:55 Antibiotics) Review of Systems ROS Statement: Those systems with pertinent positive or pertinent negative responses have been documented in the HPI. ROS Other: All systems not noted in ROS Statement are negative. Past Medical History Past Medical History: Asthma, Cancer, GERD/Reflux Additional Past Medical History / Comment(s): left sided abdominal pain,cyst to ovary,melanoma-jaw line, hernia, History of Any Multi-Drug Resistant Organisms: None Reported Past Surgical History: Adenoidectomy, Orthopedic Surgery, Tonsillectomy, Tubal Ligation, Uterine Ablation Additional Past Surgical History / Comment(s): labial cyst removal, carpal tunnel bilat, Past Anesthesia/Blood Transfusion Reactions: No Reported Reaction Past Psychological History: Bipolar, Depression, PTSD, Schizophrenia Smoking Status: Former smoker Past Alcohol Use History: None Reported Past Drug Use History: None Reported - Past Family History Mother Family Medical History: Cancer Additional Family Medical History / Comment(s): breast Father Additional Family Medical History / Comment(s): w/aneurysm General Exam Limitations: no limitations Course Vital Signs 01/12/20 01/12/20 13:59 17:24 Temperature 98.5 F 98.2 F Pulse Rate 83 90 Respiratory 18 18 Rate Blood Pressure 116/79 117/60 O2 Sat by Pulse 99 96 Oximetry Medical Decision Making - Medical Decision Making On arrival patient is placed in the hallway 10. A thorough history and physical exam was performed. Reports the symptoms are typical of her migraine headaches. Peripheral IV is established the patient was given a migraine cocktail. Patient is then reevaluated and reports that her pain has improved to a 7 out of 10. States her pain upon presentation was "greater than 10". The patient was then given a dose of Dilaudid. Reevaluation reports that her symptoms are down to a 4 out of 10. Patient feels comfortable for discharge at this time. The patient will be given a small prescription for Fioricet with codeine. Is instructed to stop taking her Esgic he does not appear to be working for her. She needs to follow up with her neurologist for her continued migraine headache which are unrelieved from her home medications. Patient agreed to this. She was given written and verbal discharge instructions and was discharged home in stable condition Disposition Clinical Impression: Migraine Disposition: HOME SELF-CARE Condition: Stable Instructions (If sedation given, give patient instructions): Acute Headache (ED) Additional Instructions: Please follow-up with your neurologist. Return to the emergency room for any new or worsening symptoms. Talk to your neurologist about [facility] Prescriptions: Buta/APAP/Caf/Cod 46-339-17-30 [Fioricet w/Cod 81-800-01-30MG] 1 cap PO Q6HR PRN 3 Days #12 cap PRN Reason: Migraine Headache Is patient prescribed a controlled substance at d/c from ED?: Yes When asked, does pt state using other controlled substances?: No If prescribed controlled substance>3 days was MAPS reviewed?: Prescribed <3 Days If opioid is for acute pain is fill amount 7 days or less?: Yes If Rx opioid, was Start Talking consent form obtained?: Yes Referrals: Clover Almeida MD [Primary Care Provider] - 1-2 days Time of Disposition: 17:07
[2020-01-12] MEDS ORDERED: HYDROmorphone 1 MG/ML 1 ML SYRINGE IVP STA (16:03)
[2020-01-12 17:25] VITALS: BP 117/60; PULSE 90; TEMP 98.2
== END 2020-01-12 17:25 | disposition home or self-care (01) ==
LOC: EC 13:49
DX: G43.909 Migraine, unspecified, not intractable, without status migrainosus (principal); J45.909 Unspecified asthma, uncomplicated; F31.9 Bipolar disorder, unspecified; F20.9 Schizophrenia, unspecified; Z79.899 Other long term (current) drug therapy; Z88.6 Allergy status to analgesic agent; Z88.8 Allergy status to other drugs, medicaments and biological substances; Z91.040 Latex allergy status; Z91.048 Other nonmedicinal substance allergy status; Z88.0 Allergy status to penicillin; Z88.2 Allergy status to sulfonamides; Z87.891 Personal history of nicotine dependence; Z85.820 Personal history of malignant melanoma of skin
CPT/HCPCS: 99283; 96365; 96375 ×5; J1200; J1100; J2765; J1170; J3475; J1885

== ENCOUNTER 2020-03-04 06:48 | Emergency (ER) | payer OTHER ==
[2020-03-04] MEDS ORDERED: MORPHINE SULFATE 4 MG/ML SYRINGE IV STA (07:04)
[2020-03-04] MEDS ORDERED: ONDANSETRON 4 MG/2 ML VIAL IVP STA (07:04)
--- NOTE | 2020-03-04 07:11 | ED ---
Chest Pain HPI - General Chief Complaint: Chest Pain Stated Complaint: Chest Pain Time Seen by Provider: 03/04/20 06:55 Source: patient, RN notes reviewed Mode of arrival: ambulatory Limitations: no limitations - History of Present Illness Initial Comments: This is a 39-year-old female presents emergency Department with chief complaint of chest pain. Patient states it started 2 hours ago. Patient states is gradual onset. Patient states that starts dental chest and radiates outward. Nothing to her back neck region. Patient states that she cannot take a deep breath of the makes the pain worse. She states she has no resting shortness of breath no abdominal pain including nausea vomiting no diaphoretic episodes she denies any prior cardiac disease including stents. Patient denies any leg pain leg swelling no history DVT or PE. - Related Data Home Medications Medication Instructions Recorded Confirmed Hydrocodone/Acetaminophen [[place] 1 tab PO TID PRN 10/16/13 01/12/20 7.5-325] Albuterol Inhaler [Ventolin Hfa 2 puff INHALATION RT-QID PRN 01/12/20 01/12/20 Inhaler] Butalb/Acetaminophen/Caffeine 1 tab PO Q4-6H PRN 01/12/20 01/12/20 [Esgic 50-325-40 mg Tablet] Diclofenac Sodium Gel [Voltaren 1 applic TOPICAL QID 01/12/20 01/12/20 Gel] Hydrocortisone Cream 1 applic TOPICAL BID PRN 01/12/20 01/12/20 [Hydrocortisone 2.5% Cream] Loratadine 10 mg PO DAILY 01/12/20 01/12/20 PARoxetine HCL [Paxil] 20 mg PO DAILY 01/12/20 01/12/20 Verapamil HCl [Verapamil ER] 180 mg PO DAILY 01/12/20 01/12/20 Vitamin B-6 25mg 25 mg PO DAILY 01/12/20 01/12/20 Previous Rx's Medication Instructions Recorded Acetaminophen Tab [Tylenol Tab] 1,000 mg PO Q6HR #40 tablet 03/31/19 Buta/APAP/Caf/Cod 61-094-59-30 1 cap PO Q6HR PRN 3 Days #12 cap 01/12/20 [Fioricet w/Cod 99-909-85-30MG] Ibuprofen [Motrin] 600 mg PO Q8HR PRN #20 tab 01/28/21 Allergies Allergy/AdvReac Type Severity Reaction Status Date / Time aspirin Allergy Rash/Hives Verified 03/04/20 06:54 divalproex sodium Allergy Chest Verified 03/04/20 06:54 [From Depakote] Pain,agitated and violent gabapentin Allergy Chest Verified 03/04/20 06:54 Pain,agitated and voilent latex Allergy Rash/Hives Verified 03/04/20 06:54 lithium [[place]] Allergy Confusion Verified 03/04/20 06:54 Penicillins Allergy Rash/Hives Verified 03/04/20 06:54 Sulfa (Sulfonamide Allergy Rash/Hives Verified 03/04/20 06:54 Antibiotics) Review of Systems ROS Statement: Those systems with pertinent positive or pertinent negative responses have been documented in the HPI. ROS Other: All systems not noted in ROS Statement are negative. EKG Findings - EKG Comments: EKG Findings:: EKG performed at 7:04 normal sinus rhythm rate of 83 LA 148 QRS 84 QT/QTC 380/446 Past Medical History Past Medical History: Asthma, Cancer, GERD/Reflux Additional Past Medical History / Comment(s): left sided abdominal pain,cyst to ovary,melanoma-jaw line, hernia, History of Any Multi-Drug Resistant Organisms: None Reported Past Surgical History: Adenoidectomy, Orthopedic Surgery, Tonsillectomy, Tubal Ligation, Uterine Ablation Additional Past Surgical History / Comment(s): labial cyst removal, carpal tunnel bilat, Past Anesthesia/Blood Transfusion Reactions: No Reported Reaction Past Psychological History: Bipolar, Depression, PTSD, Schizophrenia Smoking Status: Former smoker Past Alcohol Use History: None Reported Past Drug Use History: None Reported - Past Family History Mother Family Medical History: Cancer Additional Family Medical History / Comment(s): breast Father Additional Family Medical History / Comment(s): w/aneurysm General Exam Limitations: no limitations General appearance: alert, in no apparent distress Head exam: Present: atraumatic, normocephalic, normal inspection Eye exam: Present: normal appearance, PERRL, EOMI. Absent: scleral icterus, conjunctival injection, periorbital swelling ENT exam: Present: normal exam, normal oropharynx, mucous membranes moist Neck exam: Present: normal inspection, full ROM. Absent: tenderness, meningismus, lymphadenopathy Respiratory exam: Present: normal lung sounds bilaterally, chest wall tenderness. Absent: respiratory distress, wheezes, rales, rhonchi, stridor Cardiovascular Exam: Present: regular rate, normal rhythm, normal heart sounds. Absent: systolic murmur, diastolic murmur, rubs, gallop, clicks GI/Abdominal exam: Present: soft, normal bowel sounds. Absent: distended, tenderness, guarding, rebound, rigid Neurological exam: Present: alert, oriented X3, CN II-XII intact, reflexes normal. Absent: motor sensory deficit Skin exam: Present: warm, dry, intact, normal color. Absent: rash Course Vital Signs 03/04/20 03/04/20 03/04/20 06:50 08:43 09:07 Temperature 98.5 F 98.2 F 98.1 F Pulse Rate 87 79 82 Respiratory 24 18 16 Rate Blood Pressure 161/98 141/89 132/92 O2 Sat by Pulse 100 98 98 Oximetry Chest Pain MDM - MDM Patient symptoms are improved after pain meds. Patient has a negative workup including CT, chest x-ray, troponin, lab work, EKG. Patient symptoms related to costochondritis, pleurisy. Patient will be discharged in stable condition return parameters were discussed. Disposition Clinical Impression: Pleurisy, Costochondritis Disposition: HOME SELF-CARE Condition: Stable Instructions (If sedation given, give patient instructions): Costochondritis (ED), Pleurisy (ED) Additional Instructions: Please return to the Emergency Department if symptoms worsen or any other concerns. Prescriptions: Ibuprofen [Motrin] 600 mg PO Q8HR PRN #20 tab PRN Reason: Pain Is patient prescribed a controlled substance at d/c from ED?: No Referrals: Clover Almeida MD [Primary Care Provider] - 1-2 days Time of Disposition: 09:55
[2020-03-04 07:38] LABS: Basophils # (A) 0.1 k/uL (0-0.2); Basophils % (A) 1 %; Eosinophils # (A) 0.3 k/uL (0-0.7); Eosinophils % (A) 3 %; HCT 41.5 % (34.0-46.0); Lymphocytes # (A) 4.6 k/uL (1.0-4.8); Lymphocytes % (A) 50 %; MCH 28.3 pg (25.0-35.0); MCHC 33.6 g/dL (31.0-37.0); MCV 84.1 fL (80.0-100.0); Mean Platelet Volume 6.4; Monocytes # (A) 0.4 k/uL (0-1.0); Monocytes % (A) 4 %; Neutrophils # (A) 3.7 k/uL (1.3-7.7); Neutrophils % (A) 40 %; Platelet Count 325 k/uL (150-450); RBC 4.94 m/uL (3.80-5.40); RDW 13.2 % (11.5-15.5); WBC 9.2 k/uL (3.8-10.6)
[2020-03-04 07:50] LABS: ALT 20 U/L (4-34); AST 21 U/L (14-36); African American GFR (CKD) >90 (>60 ml/min/1.73 sqM); Albumin 4.1 g/dL (3.5-5.0); Alkaline Phosphatase 68 U/L (38-126); Anion Gap 8 mmol/L; Blood Urea Nitrogen 12 mg/dL (7-17); Calcium 9.5 mg/dL (8.4-10.2); Carbon Dioxide 24 mmol/L (22-30); Chloride 105 mmol/L (98-107); Glucose 112 mg/dL (74-99); Lipase 118 U/L (23-300); Magnesium 1.8 mg/dL (1.6-2.3); Non-African American GFR(CKD) >90 (>60 ml/min/1.73 sqM); Potassium 4.1 mmol/L (3.5-5.1); Sodium 137 mmol/L (137-145); Total Bilirubin 0.3 mg/dL (0.2-1.3); Total Protein 7.5 g/dL (6.3-8.2)
--- NOTE | 2020-03-04 07:55 | XR ---
EXAMINATION TYPE: XR chest 2V DATE OF EXAM: 03/04/2020 COMPARISON: Chest x-ray March 31, 2019 HISTORY: Chest pain. TECHNIQUE: Frontal and lateral views of the chest are obtained. FINDINGS: There is no suspicious new focal air space opacity, pleural effusion, or pneumothorax seen . The cardiac silhouette size remains within normal limits. Overlying EKG leads are present. The o sseous structures are intact. IMPRESSION: No acute cardiopulmonary process currently.
[2020-03-04 08:00] LABS: D-Dimer 0.35 mg/L FEU (<0.60); Partial Thromboplastin Time 24.9 sec (22.0-30.0); Prothrombin Time 10.4 sec (9.0-12.0)
--- NOTE | 2020-03-04 09:08 | CT ---
CT CHEST FOR PULMONARY EMBOLISM. EXAMINATION TYPE: CT angio chest DATE OF EXAM: 03/04/2020 INDICATION: Shortness of breath and chest pain. CT DLP: 444.1 mGycm, Automated exposure control for dose reduction was used. CONTRAST: Patient injected with 100 mL of Isovue 370. COMPARISON: None TECHNIQUE: CT of the chest is performed on a spiral scan at 2 mm thick sections. Study is performed with intravenous contrast timed for evaluation for pulmonary embolism. This will limit additional po rtions of the evaluation. 3-D MIP images reconstructed by the technologist are reviewed on the compu ter in the coronal and sagittal planes. FINDINGS: No persistent filling defects are evident to suggest an acute pulmonary embolism. No mediastinal or hilar adenopathy enlarged by CT criteria is evident. The ascending aorta diameter at the level of the main pulmonary artery is 3.2 cm. The main pulmonary artery diameter at the bifur cation is 2.4 cm. Lung windows are clear. Limited CT section through the upper abdomen are unremarkable. IMPRESSIONS: 1. No acute pulmonary embolism. 2. No acute pulmonary process to account for shortness of breath.
[2020-03-04 09:10] VITALS: TEMP 98.1
[2020-03-04] MEDS ORDERED: KETOROLAC 15 MG/ML 1 ML VIAL IVP STA (09:53)
[2020-03-04 10:25] VITALS: BP 138/94; PULSE 70; RESP 18
== END 2020-03-04 10:24 | disposition home or self-care (01) ==
LOC: EC 06:48
DX: M94.0 Chondrocostal junction syndrome [Tietze] (principal); R09.1 Pleurisy; J45.909 Unspecified asthma, uncomplicated; F32.9 Major depressive disorder, single episode, unspecified; F43.10 Post-traumatic stress disorder, unspecified; Z79.899 Other long term (current) drug therapy; Z79.1 Long term (current) use of non-steroidal anti-inflammatories (NSAID); Z88.6 Allergy status to analgesic agent; Z88.0 Allergy status to penicillin; Z88.2 Allergy status to sulfonamides; Z91.040 Latex allergy status; Z88.8 Allergy status to other drugs, medicaments and biological substances; Z91.048 Other nonmedicinal substance allergy status; Z85.820 Personal history of malignant melanoma of skin; Z87.891 Personal history of nicotine dependence
CPT/HCPCS: 36415; 93005; 85379; 83880; 80053; 83690; 83735; 84484; 85025; 85610; 85730; 71046; 71275; 99285; 96374; 96375 ×2; J2270; J2405; J1885; Q9967

== ENCOUNTER → 2020-04-10 | Outpatient (CLI) | payer OTHER ==
--- NOTE | 2020-04-11 12:00 | MR ---
EXAMINATION TYPE: MR cspine/lspine wo con DATE OF EXAM: 04/10/2020 COMPARISON: Plain film lumbar spine 04/10/2020, prior lumbar MRI and cervical MR 05/09/2018 HISTORY: Neck pain, migraines, rt arm weakness, LBP, RLE radiculopathy TECHNIQUE: Multiplanar, multisequence imaging of the cervical and lumbar spine is performed without I V contrast. FINDINGS: Cervical spine MRI: There is some motion on the exam. Cervical cord signal is maintained. There is no significant spinal stenosis. Cervical vertebral bodies show essentially stable alignment, there is preserved height and bone marrow signal. Some mild loss of disc height signal present at C5-6. There is no evident foramin al encroachment. Minimal posterior disc bulge at C5-6 shows slight anterior mass effect on the thecal sac similar to prior exam, similar finding C4-5, mild posterior disc bulge is present at C6-7 causin g slight anterior mass effect on the thecal sac. There may be a slight spinal curvature the thoracic spine. IMPRESSION: Stable mild degenerative disc disease Lumbar spine MRI There is a slight spinal curvature as noted on plain film Sagittal images of the lumbar spine show vertebral body heights and alignment to appear satisfactory. The intervertebral discs demonstrate normal heights and hydration. The conus medullaris is normal i n position and signal. The bone marrow signal intensity is within normal limits. Axial images show no focal disc disease, facet arthropathy changes present L4-5, L5-S1, L3-4 and L2-3 . Mild posterior disc bulge L4-5 causes slight anterior mass effect on the thecal sac greater than at L3-4, mild foraminal encroachment present at L3-4 and L4-5 similar to prior exam There is no spinal canal stenosis or evidence of nerve root compromise. IMPRESSION: Facet arthropathy changes. Mild degenerative disc disease is essentially stable.
--- NOTE | 2020-04-11 17:43 | XR ---
Lumbar spine. HISTORY: Back pain. COMPARISON: None. TECHNIQUE: 5 views of the lumbar spine were obtained. FINDINGS: The lumbar vertebral segments are normal in height and alignment and there is no fracture or subluxat ion. There is mild disc space narrowing at the L4-5 level indicating mild degenerative disc disease. There is minimal spondylosis in the mid and upper lumbar spine indicating mild degenerative disc disease b ut the disc spaces are well-maintained at these levels. There is no spondylolysis or spondylolisthesis. The sacrum and SI joints are normal. Impression: mild degenerative disc disease greatest at the L4-5 level as described above.
== END | disposition home or self-care (01) ==
LOC: RADMRIMAIN 13:24
PROVIDERS: ATTEND Neurological Surgery
DX: M50.00 Cervical disc disorder with myelopathy, unspecified cervical region (principal); M50.10 Cervical disc disorder with radiculopathy, unspecified cervical region; M51.36 Other intervertebral disc degeneration, lumbar region; M47.816 Spondylosis without myelopathy or radiculopathy, lumbar region
CPT/HCPCS: 72110; 72141; 72148

== ENCOUNTER 2020-06-19 15:51 | Emergency (ER) | payer OTHER ==
[2020-06-19 16:01] VITALS: BP 136/67; PULSE 84; RESP 20; TEMP 98.2
--- NOTE | 2020-06-19 16:21 | ED ---
General Adult HPI - General Chief complaint: Recheck/Abnormal Lab/Rx Stated complaint: fall Time Seen by Provider: 06/19/20 16:15 Source: patient Mode of arrival: ambulatory Limitations: no limitations - History of Present Illness Initial comments: Patient presents to the ED stating that she had lumbar spine surgery performed at [facility] 10 days ago. She states that she slipped and slid down 2 stairs on her back yesterday, and ever since then, she has been experiencing a "pulling" sensation along her lumbar wounds. Patient states that she is concerned that her tobias may have "loosened". Patient states that she called her surgeon at [facility], but he was rude with her on the phone and told her that everything was fine. Patient denies any significantly increased pain, bleeding, fever or chills, head injury, LOC, headache, focal numbness/weakness/neuro deficit, neck/upper back pain, extremity pain, chest pain, dyspnea, dizziness, abdominal pain, nausea or vomiting, incontinence or urinary retention, urinary symptoms, or any other symptoms or complaints. Patient states that she has an appointment scheduled to see her surgeon for follow-up in 5 days. - Related Data Home Medications Medication Instructions Recorded Confirmed Hydrocodone/Acetaminophen [[place] 1 tab PO TID PRN 10/16/13 01/12/20 7.5-325] Albuterol Inhaler [Ventolin Hfa 2 puff INHALATION RT-QID PRN 01/12/20 01/12/20 Inhaler] Butalb/Acetaminophen/Caffe[place] 1 tab PO Q4-6H PRN 01/12/20 01/12/20 [Esgic 50-325-40 mg Tablet] Diclofenac Sodium Gel [Voltaren 1 applic TOPICAL QID 01/12/20 01/12/20 Gel] Hydrocortisone Cream 1 applic TOPICAL BID PRN 01/12/20 01/12/20 [Hydrocortisone 2.5% Cream] Loratadine 10 mg PO DAILY 01/12/20 01/12/20 PARoxetine HCL [Paxil] 20 mg PO DAILY 01/12/20 01/12/20 Verapamil HCl [Verapamil ER] 180 mg PO DAILY 01/12/20 01/12/20 Vitamin B-6 25mg 25 mg PO DAILY 01/12/20 01/12/20 Previous Rx's Medication Instructions Recorded Acetaminophen Tab [Tylenol Tab] 1,000 mg PO Q6HR #40 tablet 03/31/19 [place]/APAP/Caf/Cod 37-923-07-30 1 cap PO Q6HR PRN 3 Days #12 cap 01/12/20 [Fioricet w/Cod 30-116-09-30MG] Ibuprofen [Motrin] 600 mg PO Q8HR PRN #20 tab 03/04/20 Allergies Allergy/AdvReac Type Severity Reaction Status Date / Time aspirin Allergy Rash/Hives Verified 06/19/20 16:01 divalproex sodium Allergy Chest Verified 06/19/20 16:01 [From Depakote] Pain,agitated and violent gabapentin Allergy Chest Verified 06/19/20 16:01 Pain,agitated and voilent iodine Allergy Rash/Hives Verified 06/19/20 16:01 latex Allergy Rash/Hives Verified 06/19/20 16:01 lithium [[place]] Allergy Confusion Verified 06/19/20 16:01 Penicillins Allergy Rash/Hives Verified 06/19/20 16:01 Sulfa (Sulfonamide Allergy Rash/Hives Verified 06/19/20 16:01 Antibiotics) Review of Systems ROS Statement: Those systems with pertinent positive or pertinent negative responses have been documented in the HPI. ROS Other: All systems not noted in ROS Statement are negative. Past Medical History Past Medical History: Asthma, Cancer, GERD/Reflux Additional Past Medical History / Comment(s): left sided abdominal pain,cyst to ovary,melanoma-jaw line, hernia, History of Any Multi-Drug Resistant Organisms: None Reported Past Surgical History: Adenoidectomy, Orthopedic Surgery, Tonsillectomy, Tubal Ligation, Uterine Ablation Additional Past Surgical History / Comment(s): labial cyst removal, carpal tunnel bilat, Back surg. Past Anesthesia/Blood Transfusion Reactions: No Reported Reaction Past Psychological History: Bipolar, Depression, PTSD, Schizophrenia Smoking Status: Former smoker Past Alcohol Use History: None Reported Past Drug Use History: None Reported - Past Family History Mother Family Medical History: Cancer Additional Family Medical History / Comment(s): breast Father Additional Family Medical History / Comment(s): w/aneurysm General Exam Limitations: no limitations General appearance: alert, in no apparent distress Head exam: Present: atraumatic, normocephalic Eye exam: Present: normal appearance, EOMI ENT exam: Present: mucous membranes moist Neck exam: Present: other (Trachea is in midline). Absent: tenderness Respiratory exam: Present: normal lung sounds bilaterally. Absent: respiratory distress, wheezes, rales, rhonchi, stridor Cardiovascular Exam: Present: regular rate, normal rhythm, normal heart sounds, other (Normal radial pulses bilaterally) GI/Abdominal exam: Present: soft. Absent: distended, tenderness, guarding Extremities exam: Present: full ROM. Absent: tenderness, pedal edema Back exam: Present: other (2 surgical wounds are noted to lumbar back with tobias in place; there is no wound dehiscence, bleeding or drainage appreciated; there is mild surrounding ecchymosis and tenderness) Neurological exam: Present: alert, oriented X3. Absent: motor sensory deficit Psychiatric exam: Present: normal affect, normal mood Skin exam: Present: warm, dry, normal color Course Vital Signs 06/19/20 15:58 Temperature 98.2 F Pulse Rate 84 Respiratory 20 Rate Blood Pressure 136/67 O2 Sat by Pulse 99 Oximetry Medical Decision Making - Medical Decision Making Patient's lumbar spine x-rays show expected postsurgical findings and no fracture. Patient's lumbar back surgical wounds are intact with tobias in place. I do not suspect any significant injury from the patient's reported fall. Patient is aware of her x-ray findings, and she feels comfortable going home at this time. Patient was instructed to, and agrees to, follow-up with her surgeon at [facility] in 5 days as scheduled. Patient was counseled about falls and wound care. Patient was clearly explained return and follow-up instructions. Patient feels comfortable with this plan. - Radiology Data Radiology results: report reviewed (Lumbar spine x-rays: Posterior fusion surgery, no fracture seen) Disposition Clinical Impression: Fall, Visit for wound check Disposition: HOME SELF-CARE Condition: Stable Instructions (If sedation given, give patient instructions): Staple Care (ED), Fall Prevention (ED) Additional Instructions: Return to the ER immediately should you develop new or worsening pain, a fever, numbness or weakness, trouble controlling her bladder or bowels, shortness breath, feeling dizzy or faint, or new or worsening symptoms. Follow up with your surgeon at [facility] in 5 days as scheduled. Is patient prescribed a controlled substance at d/c from ED?: No Referrals: Clover Almeida MD [Primary Care Provider] - 1-2 days Time of Disposition: 17:24
--- NOTE | 2020-06-19 17:09 | XR ---
EXAMINATION TYPE: XR lumbar spine 2 or 3V DATE OF EXAM: 06/19/2020 COMPARISON: 04/10/2020 HISTORY: Back pain TECHNIQUE: 3 views FINDINGS: There are rods and screws fusing posteriorly the lumbar spine at L4-5. There is disc prosth esis at L4-5. Vertebra have normal alignment. There is no compression fracture. Sacroiliac joints are intact. There are skin tobias. IMPRESSION: Posterior fusion surgery. No fracture seen.
== END 2020-06-19 17:35 | disposition home or self-care (01) ==
LOC: EC 15:51
DX: Z04.3 Encounter for examination and observation following other accident (principal); Z48.89 Encounter for other specified surgical aftercare; J45.909 Unspecified asthma, uncomplicated; K21.9 Gastro-esophageal reflux disease without esophagitis; F32.9 Major depressive disorder, single episode, unspecified; F41.9 Anxiety disorder, unspecified; F20.9 Schizophrenia, unspecified; Z87.891 Personal history of nicotine dependence; Z85.820 Personal history of malignant melanoma of skin; Z79.1 Long term (current) use of non-steroidal anti-inflammatories (NSAID); Z79.51 Long term (current) use of inhaled steroids; Z79.899 Other long term (current) drug therapy; Z88.0 Allergy status to penicillin
CPT/HCPCS: 72100; 99283

== ENCOUNTER 2020-12-08 14:06 | Emergency (ER) | payer OTHER ==
[2020-12-08 14:27] VITALS: TEMP 98.6
[2020-12-08] MEDS ORDERED: ONDANSETRON 4 MG/2 ML VIAL IVP STA (15:13)
[2020-12-08] MEDS ORDERED: SODIUM CHLORIDE 0.9% 1,000 ML IV STA (15:13)
[2020-12-08] MEDS ORDERED: KETOROLAC 15 MG/ML 1 ML VIAL IVP STA (15:13)
--- NOTE | 2020-12-08 15:17 | ED ---
General Adult HPI - General Chief complaint: Abdominal Pain Stated complaint: Abd Pain Time Seen by Provider: 12/08/20 15:01 Source: patient, EMS, RN notes reviewed Mode of arrival: EMS - History of Present Illness Initial comments: 40-year-old female presents to the emergency department via EMS for evaluation of lower abdominal pain, onset 1 hour prior to arrival. Patient states she was at her counseling appointment when she developed this pain she describes as sharp and cramping. Patient describes pain in the lower abdomen extending to the suprapubic region. Also complains of mild bilateral flank discomfort. States she does not have menstrual periods due to a uterine ablation and reports no chance of due to tubal ligation. Patient denies fever, nausea, vomiting, constipation, diarrhea, dysuria, hematuria, and trauma or injury. - Related Data Home Medications Medication Instructions Recorded Confirmed Butalb/Acetaminophen/Caffeine 1 tab PO DAILY PRN 01/12/20 12/08/20 [Esgic 50-325-40 mg Tablet] Verapamil HCl [Verapamil ER] 180 mg PO DAILY 01/12/20 12/08/20 HYDROcodone/APAP 10-325MG [[place] 1 tab PO QID 12/08/20 12/08/20 10-325] Rizatriptan Odt [Maxalt Rn Document Improvement Specialist] 5 mg PO BID PRN 12/08/20 12/08/20 Previous Rx's Medication Instructions Recorded Ketorolac [Toradol] 10 mg PO Q6HR PRN 5 Days #20 tab 12/08/20 Ondansetron Odt [Zofran Odt] 4 mg PO Q8HR PRN #10 tab 12/08/20 Allergies Allergy/AdvReac Type Severity Reaction Status Date / Time aspirin Allergy Rash/Hives Verified 12/08/20 16:30 divalproex sodium Allergy Chest Verified 12/08/20 16:30 [From Depakote] Pain,agitated and violent gabapentin Allergy Chest Verified 12/08/20 16:30 Pain,agitated and voilent latex Allergy Rash/Hives Verified 12/08/20 16:30 lithium [Spiro] Allergy Confusion Verified 12/08/20 16:30 Penicillins Allergy Rash/Hives Verified 12/08/20 16:30 povidone-iodine Allergy Rash/Hives Verified 12/08/20 17:57 [From Betadine] soap [From Betadine] Allergy Rash/Hives Verified 12/08/20 17:57 Sulfa (Sulfonamide Allergy Rash/Hives Verified 12/08/20 16:30 Antibiotics) Review of Systems ROS Statement: Those systems with pertinent positive or pertinent negative responses have been documented in the HPI. ROS Other: All systems not noted in ROS Statement are negative. Past Medical History Past Medical History: Asthma, Cancer, GERD/Reflux Additional Past Medical History / Comment(s): left sided abdominal pain,cyst to ovary,melanoma-jaw line, hernia, History of Any Multi-Drug Resistant Organisms: None Reported Past Surgical History: Adenoidectomy, Back Surgery, Orthopedic Surgery, Tonsillectomy, Tubal Ligation, Uterine Ablation Additional Past Surgical History / Comment(s): labial cyst removal, carpal tunnel bilat, Back surg. Past Anesthesia/Blood Transfusion Reactions: No Reported Reaction Past Psychological History: Bipolar, Depression, PTSD, Schizophrenia Smoking Status: Former smoker Past Alcohol Use History: None Reported Past Drug Use History: None Reported - Past Family History Mother Family Medical History: Cancer Additional Family Medical History / Comment(s): breast Father Additional Family Medical History / Comment(s): w/aneurysm General Exam Limitations: no limitations (Well-developed, well-nourished female in no acute distress. Initial temperature 98.6, pulse 90, respirations 20, blood pressure 145/99, pulse ox 99% on room air.) General appearance: alert, in no apparent distress ENT exam: Present: normal exam, normal oropharynx, mucous membranes moist Neck exam: Present: normal inspection. Absent: tenderness, meningismus, lymphadenopathy Respiratory exam: Present: normal lung sounds bilaterally. Absent: respiratory distress, wheezes, rales, rhonchi, stridor Cardiovascular Exam: Present: regular rate, normal rhythm, normal heart sounds. Absent: systolic murmur, diastolic murmur, rubs, gallop, clicks GI/Abdominal exam: Present: soft, tenderness (LLQ, RLQ, and Suprapubic tenderness upon palpation), guarding, normal bowel sounds. Absent: distended, rebound, rigid Back exam: Present: normal inspection, CVA tenderness (L). Absent: CVA tenderness (R) Neurological exam: Present: alert, oriented X3, CN II-XII intact Psychiatric exam: Present: normal affect, normal mood Skin exam: Present: warm, dry, intact, normal color Course Vital Signs 12/08/20 12/08/20 12/08/20 14:24 19:11 23:05 Temperature 98.6 F Pulse Rate 90 79 78 Respiratory 20 16 16 Rate Blood Pressure 145/99 124/75 130/73 O2 Sat by Pulse 99 97 98 Oximetry - Reevaluation(s) Reevaluation #1: 12/08/20 16:07 Patient reports only minimal improvement with medications. Pain worsens with movement and position change. Discussed option of ordering CT- patient states she has had contrast dye in the past and able to tolerate it without difficulty Medical Decision Making - Medical Decision Making 40-year-old female with a history tubal ligation, uterine ablation, and ovarian cysts, presents to the emergency department for evaluation of lower abdominal and suprapubic pain. Upon exam, patient is guarding the lower abdomen and grimaces with movement and position change. Vital signs stable; she is afebrile and not tachycardic. Able to tolerate PO without difficulty. Patient was given Toradol for pain and Zofran for nausea with minimal improvement in discomfort. She was then given one milligram of Dilaudid and is resting more comfortably. Laboratory studies were reviewed with no significant findings. CT of the abdomen and pelvis was obtained with contrast indicating the need for further pelvic studies, therefore transvaginal ultrasound was obtained. Of significance was a complex left ovarian cyst. Patient's case was discussed with my attending Dr. Palacios. Findings were reviewed with patient; she is instructed to follow-up with her MANAGEMENT LEAD for further evaluation and treatment. Patient verbalizes understanding and agrees with this plan. - Lab Data Result diagrams: 12/08/20 15:26 12/08/20 15:26 Lab Results 12/08/20 12/08/20 12/08/20 Range/Units 15:26 15:26 15:26 WBC 7.2 (3.8-10.6) k/uL RBC 4.60 (3.80-5.40) m/uL Hgb 13.6 (11.4-16.0) gm/dL Hct 38.4 (34.0-46.0) % MCV 83.6 (80.0-100.0) fL MCH 29.5 (25.0-35.0) pg MCHC 35.3 (31.0-37.0) g/dL RDW 13.5 (11.5-15.5) % Plt Count 329 (150-450) k/uL MPV 6.4 Neutrophils % 64 % Lymphocytes % 27 % Monocytes % 5 % Eosinophils % 3 % Basophils % 0 % Neutrophils # 4.6 (1.3-7.7) k/uL Lymphocytes # 2.0 (1.0-4.8) k/uL Monocytes # 0.3 (0-1.0) k/uL Eosinophils # 0.2 (0-0.7) k/uL Basophils # 0.0 (0-0.2) k/uL Sodium (137-145) mmol/L Potassium (3.5-5.1) mmol/L Chloride (98-107) mmol/L Carbon Dioxide (22-30) mmol/L Anion Gap mmol/L BUN (7-17) mg/dL Creatinine (0.52-1.04) mg/dL Est GFR (CKD-EPI)AfAm (>60 ml/min/1.73 sqM) Est GFR (CKD-EPI)NonAf (>60 ml/min/1.73 sqM) Glucose (74-99) mg/dL Calcium (8.4-10.2) mg/dL Total Bilirubin (0.2-1.3) mg/dL AST (14-36) U/L ALT (4-34) U/L Alkaline Phosphatase (38-126) U/L Total Protein (6.3-8.2) g/dL Albumin (3.5-5.0) g/dL Lipase (23-300) U/L Urine Color Colorless Urine Appearance Clear (Clear) Urine pH 6.0 (5.0-8.0) Ur Specific [place] 1.002 (1.001-1.035) Urine Protein Negative (Negative) Urine Glucose (UA) Negative (Negative) Urine Ketones Negative (Negative) Urine Blood Negative (Negative) Urine Nitrite Negative (Negative) Urine Bilirubin Negative (Negative) Urine Urobilinogen <2.0 (<2.0) mg/dL Ur Leukocyte Esterase Negative (Negative) Urine HCG, Qual Not Detected (Not Detectd) 12/08/20 Range/Units 15:26 WBC (3.8-10.6) k/uL RBC (3.80-5.40) m/uL Hgb (11.4-16.0) gm/dL Hct (34.0-46.0) % MCV (80.0-100.0) fL MCH (25.0-35.0) pg MCHC (31.0-37.0) g/dL RDW (11.5-15.5) % Plt Count (150-450) k/uL MPV Neutrophils % % Lymphocytes % % Monocytes % % Eosinophils % % Basophils % % Neutrophils # (1.3-7.7) k/uL Lymphocytes # (1.0-4.8) k/uL Monocytes # (0-1.0) k/uL Eosinophils # (0-0.7) k/uL Basophils # (0-0.2) k/uL Sodium 136 L (137-145) mmol/L Potassium 4.3 (3.5-5.1) mmol/L Chloride 105 (98-107) mmol/L Carbon Dioxide 24 (22-30) mmol/L Anion Gap 7 mmol/L BUN 11 (7-17) mg/dL Creatinine 0.82 (0.52-1.04) mg/dL Est GFR (CKD-EPI)AfAm >90 (>60 ml/min/1.73 sqM) Est GFR (CKD-EPI)NonAf 90 (>60 ml/min/1.73 sqM) Glucose 92 (74-99) mg/dL Calcium 9.5 (8.4-10.2) mg/dL Total Bilirubin 0.2 (0.2-1.3) mg/dL AST 18 (14-36) U/L ALT 14 (4-34) U/L Alkaline Phosphatase 74 (38-126) U/L Total Protein 7.3 (6.3-8.2) g/dL Albumin 4.1 (3.5-5.0) g/dL Lipase 62 (23-300) U/L Urine Color Urine Appearance (Clear) Urine pH (5.0-8.0) Ur Specific [place] (1.001-1.035) Urine Protein (Negative) Urine Glucose (UA) (Negative) Urine Ketones (Negative) Urine Blood (Negative) Urine Nitrite (Negative) Urine Bilirubin (Negative) Urine Urobilinogen (<2.0) mg/dL Ur Leukocyte Esterase (Negative) Urine HCG, Qual (Not Detectd) - Radiology Data Radiology results: report reviewed, image reviewed CT of the abdomen and pelvis was obtained with contrast. Report was reviewed in its entirety. Impressions per include 1. Tiny left renal calculi without renal collecting system dilation. 2. Hepatic steatosis with prominent liver size. Similar to prior study. 3. Left ovarian follicles or follicular cysts. 4. Local linear opacity in the endometrial cavity with small amount of surrounding endometrial fluid and prominence of the posterior cervix, findings which are relatively unchanged. Transvaginal ultrasound was obtained. Report was reviewed in its entirety. Impression per Dr. Wilkes is 1. Nabothian cysts seen in the cervix. 2. Hyperechoic 1.3 cm area in the posterior uterus could be related to remote ablation. 3. There are anechoic cystic structure seen in the myometrium of unknown clinical significance. #4. Complex left ovarian cyst with questionable vascularity measuring up to 1.8 cm indeterminate etiology. #5. Unremarkable right ovary Disposition Clinical Impression: Ovarian cyst, Nausea Disposition: HOME SELF-CARE Condition: Stable Additional Instructions: Increase fluids. Take medications as needed for pain and nausea. Follow-up with her primary care provider for a recheck. See MANAGEMENT LEAD for further evaluation and treatment of ovarian cysts. Return to the emergency department with any new, worsening, or concerning sympt oms. Prescriptions: Ketorolac [Toradol] 10 mg PO Q6HR PRN 5 Days #20 tab PRN Reason: Pain Ondansetron Odt [Zofran Odt] 4 mg PO Q8HR PRN #10 tab PRN Reason: Nausea Is patient prescribed a controlled substance at d/c from ED?: No Referrals: Clover Almeida MD [Primary Care Provider] - 1-2 days Laquita Lebron MD [STAFF PHYSICIAN] - 1-2 days Time of Disposition: 22:42
[2020-12-08 15:45] LABS: Basophils % (A) 0 %; Eosinophils # (A) 0.2 k/uL (0-0.7); Eosinophils % (A) 3 %; HCT 38.4 % (34.0-46.0); HGB 13.6 gm/dL (11.4-16.0); Lymphocytes % (A) 27 %; MCH 29.5 pg (25.0-35.0); MCHC 35.3 g/dL (31.0-37.0); MCV 83.6 fL (80.0-100.0); Mean Platelet Volume 6.4; Monocytes # (A) 0.3 k/uL (0-1.0); Monocytes % (A) 5 %; Neutrophils # (A) 4.6 k/uL (1.3-7.7); Neutrophils % (A) 64 %; Platelet Count 329 k/uL (150-450); RDW 13.5 % (11.5-15.5); WBC 7.2 k/uL (3.8-10.6)
[2020-12-08 15:48] LABS: Appearance,Urine Clear (Clear); Bilirubin,Urine Negative (Negative); Blood,Urine Negative (Negative); Color,Urine Colorless; Glucose,Urine (UA) Negative (Negative); Ketones,Urine Negative (Negative); Leukocyte Esterase,Urine Negative (Negative); Nitrite,Urine Negative (Negative); Protein,Urine Negative (Negative); Specific Gravity,Urine 1.002 (1.001-1.035); Urobilinogen,Urine <2.0 mg/dL (<2.0)
[2020-12-08 15:55] LABS: ALT 14 U/L (4-34); AST 18 U/L (14-36); African American GFR (CKD) >90 (>60 ml/min/1.73 sqM); Albumin 4.1 g/dL (3.5-5.0); Alkaline Phosphatase 74 U/L (38-126); Anion Gap 7 mmol/L; Blood Urea Nitrogen 11 mg/dL (7-17); Calcium 9.5 mg/dL (8.4-10.2); Carbon Dioxide 24 mmol/L (22-30); Chloride 105 mmol/L (98-107); Glucose 92 mg/dL (74-99); Lipase 62 U/L (23-300); Non-African American GFR(CKD) 90 (>60 ml/min/1.73 sqM); Potassium 4.3 mmol/L (3.5-5.1); Sodium 136 mmol/L (137-145); Total Bilirubin 0.2 mg/dL (0.2-1.3); Total Protein 7.3 g/dL (6.3-8.2)
[2020-12-08] MEDS ORDERED: MORPHINE SULFATE 4 MG/ML SYRINGE IVP STA (16:08)
[2020-12-08] MEDS ORDERED: HYDROmorphone 1 MG/ML 1 ML SYRINGE IVP STA (17:39)
--- NOTE | 2020-12-08 19:10 | CT ---
EXAMINATION TYPE: CT abdomen pelvis w con DATE OF EXAM: 12/08/2020 HISTORY: Lower abdominal, suprapubic pain. CT DLP: 1603.5mGycm Automated Exposure Control for Dose Reduction was Utilized. CONTRAST: CT scan of the abdomen and pelvis is performed with IV Contrast, patient injected with 100 mL of Isov ue 300. COMPARISON: 05/07/2018 CT of the abdomen and pelvis FINDINGS: LUNG BASES: No significant abnormality is appreciated. INCLUDED CARDIAC STRUCTURES: Unremarkable LIVER: Hepatic steatosis. Normal hepatic contour. A scattered subcentimeter low attenuating lesions i n the right hepatic lobe too small to visualize. GALLBLADDER : No significant abnormality is appreciated. BILIARY TREE: No abnormal biliary tree dilation. PANCREAS: No significant abnormality is seen. SPLEEN: No significant abnormality is seen. ADRENALS: No significant abnormality is seen. KIDNEYS AND URETERS: There is a 2 mm calculus in the left kidney. Renal collecting system and ureters are not abnormally dilated. URINARY BLADDER: No significant abnormality is appreciated. ESOPHAGUS: No significant abnormality is seen. STOMACH: No significant abnormality is seen. SMALL BOWEL: No significant abnormality is seen. LARGE BOWEL: No significant abnormality is seen. APPENDIX: Unremarkable. HERNIAS: No significant abnormality is seen. UTERUS/ADNEXA: Left ovarian follicles or small cysts. There is a focal linear opacity in the endometr ial cavity with small amount of fluid. The posterior aspect of the cervix is prominent. PERITONEUM/MESENTRY: No pneumoperitoneum or ascites. There is hazy stranding of the central mesentery with prominent lymph nodes similar to prior study. LYMPH NODES: No enlarged retroperitoneal or pelvic lymph nodes are appreciated. MAJOR VASCULAR STRUCTURES: Nonaneurysmal aorta. Unremarkable inferior vena cava. OSSEOUS STRUCTURES: There are new postsurgical changes involving L4-5 there is spinal hardware fixati on with intervertebral spacers. IMPRESSION: 1. Tiny left renal calculi without renal collecting system dilatation. 2. Hepatic steatosis with prominent liver size. Similar to prior study. 3. Left ovarian follicles or follicular cysts. 4. Focal linear opacity in the endometrial cavity with small amount of surrounding endometrial fluid and prominence of the posterior cervix, findings which are relatively unchanged. Consider pelvic ultrasound clinically indicated.
[2020-12-08 19:12] VITALS: RESP 16
[2020-12-08] MEDS ORDERED: TAMSULOSIN 0.4 MG CAP.ER.24H PO STA (19:37)
[2020-12-08] MEDS ORDERED: HYDROcodone/APAP 5-325MG 1 EACH TAB PO STA (19:38)
[2020-12-08] MEDS ORDERED: ONDANSETRON ODT 4 MG TAB PO STA (19:38)
--- NOTE | 2020-12-08 22:11 | US ---
EXAMINATION TYPE: US transvaginal DATE OF EXAM: 12/08/2020 COMPARISON: October 19, 2010 CLINICAL HISTORY: Suprapubic pain. Hx tubal ligation, ablation about 15 years ago. Hx 2 stillborns, 6 miscarriages. . TECHNIQUE: Transvaginal (TV). Date of LMP: about 15 years ago. EXAM MEASUREMENTS: Uterus: 8.1 x 6.2 x 5.3 cm Endometrial Stripe: Limited. Right Ovary: 3.9 x 2.4 x 1.7 cm Left Ovary: 3.4 x 2.7 x 2.4 cm 1. Uterus: Retroverted Subcentimeter anechoic area seen in cervix. Hyperechoic area with posterior s hadowing seen: 1.3 x 0.5 x 0.4 cm. Two anechoic areas seen. #1 measures 2.0 x 0.7 x 0.5 cm. #2 measur es 0.8 x 1.5 x 0.7 cm. 2. Endometrium: Limited visibility. 3. Right Ovary: Clusters of septated anechoic areas seen. Largest cluster measures 1.0 x 0.9 x 1.3 c m. 4. Left Ovary: Complex area with vascularity seen: 1.7 x 1.7 x 1.8 cm. Spectral, color and waveform doppler imaging shows arterial and venous flow within the ovaries. 5. Bilateral Adnexa: Appear wnl. 6. Posterior cul-de-sac: Trace fluid seen. IMPRESSION: Extremely limited study due to technique. 1. Nabothian cysts seen in the cervix. 2. Shadowing hyperechoic 1.3 cm area in the posterior uterus may myometrial or endometrial calcificat ion which could be related to remote ablation. 3. There are anechoic cystic structures seen in the myometrium measuring up to prior 0.7 x 0.5 cm and 1.5 x 0.7 x 0.8 cm, unknown clinical significance. 4. Complex left ovarian cyst with questionable vascularity measuring up to 1.8 cm of indeterminate et iology. 5. Unremarkable right ovary. Regarding impression #2, 3 and 4 on a recommend correlation of findings with history, physical examin ation and/or enhanced pelvic MRI, short-term interval follow-up with repeat pelvic ultrasound could b e considered as well.
[2020-12-08 23:07] VITALS: BP 130/73; PULSE 78
== END 2020-12-08 23:05 | disposition home or self-care (01) ==
LOC: EC 14:06
DX: N83.202 Unspecified ovarian cyst, left side (principal); J45.909 Unspecified asthma, uncomplicated; K21.9 Gastro-esophageal reflux disease without esophagitis; Z87.891 Personal history of nicotine dependence; F31.9 Bipolar disorder, unspecified; F20.9 Schizophrenia, unspecified; Z79.899 Other long term (current) drug therapy; Z88.0 Allergy status to penicillin; Z88.2 Allergy status to sulfonamides; Z88.6 Allergy status to analgesic agent
CPT/HCPCS: 36415; 80053; 83690; 85025; 81003; 81025; 93975; 76830; 74177; 96374; 96375 ×3; 96361; 99284; J2270; J2405; J1170; J1885; Q9967

== ENCOUNTER → 2021-01-11 | Outpatient (CLI) | payer OTHER ==
--- NOTE | 2021-01-12 10:45 | XR ---
EXAM TYPE: LUMBAR SPINE X RAY SERIES COMPARISON: 06/19/2020 HISTORY: Pain TECHNIQUE: 7 views are submitted. FINDINGS: Postsurgical changes L4-L5 with grade 1 anterolisthesis. Multilevel hypertrophic and degenerative lopez nges at remaining levels. No compression deformities. Degree of anterolisthesis may slightly increase on flexion views. IMPRESSION: 1. Postoperative change with grade 1 anterolisthesis L4 and L5. 2. Multilevel moderate degenerative disc disease L1-L4.
== END ==
LOC: RADXRMAIN 16:13
PROVIDERS: ATTEND Psychiatry & Neurology Neurology
DX: M43.16 Spondylolisthesis, lumbar region (principal); M51.36 Other intervertebral disc degeneration, lumbar region
CPT/HCPCS: 72110

== ENCOUNTER → 2021-01-14 | Outpatient (CLI) | payer OTHER ==
--- NOTE | 2021-01-14 21:48 | MR ---
EXAMINATION TYPE: MR knee LT wo con DATE OF EXAM: 01/14/2021 COMPARISON: Plain film 11/30/2020 HISTORY: Left knee pain, painful kneecap, locking, and swelling since 2015 TECHNIQUE: Multiplanar, multisequence imaging of the left knee is performed without IV contrast. FINDINGS: There is motion on exam. MEDIAL MENISCUS: Anterior and posterior horns are intact without tear. LATERAL MENISCUS: Anterior and posterior horns are intact without tear. CRUCIATE LIGAMENTS: The anterior and posterior cruciate ligaments are intact and unremarkable. COLLATERAL LIGAMENTS: The medial collateral ligament and lateral collateral ligament complex are inta ct and unremarkable. EXTENSOR MECHANISM: Visualized quadriceps and patellar tendons are intact. EFFUSION: There is a small joint effusion, POPLITEAL CYST: No popliteal/willoughby cyst. TRICOMPARTMENT SPACES: Joint space loss is present at the patellofemoral compartment CARTILAGE: Grade IV chondromalacia present at the posterior patella BONE MARROW SIGNAL: Reactive signal changes are present in the posterior patellar marrow with probabl e geode formation OTHER: Subcutaneous edema changes are present IMPRESSION: Chondromalacia patella. Joint effusion.
== END | disposition home or self-care (01) ==
LOC: RADMRIMAIN 19:56
PROVIDERS: ATTEND Orthopaedic Surgery
DX: M22.42 Chondromalacia patellae, left knee (principal)

== ENCOUNTER 2021-01-15 19:42 | Emergency (ER) | payer OTHER ==
[2021-01-15 19:57] VITALS: RESP 20; TEMP 97.9
[2021-01-15] MEDS ORDERED: diphenhydrAMINE 50 MG/ML 1 ML VIAL IVP STA (20:42)
[2021-01-15] MEDS ORDERED: SODIUM CHLORIDE 0.9% 1,000 ML IV ONE (20:42)
[2021-01-15] MEDS ORDERED: METOCLOPRAMIDE 5 MG/ML 2 ML VIAL IVP STA (20:42)
--- NOTE | 2021-01-15 20:52 | ED ---
Headache HPI - General Chief Complaint: Headache Stated Complaint: Migraine Time Seen by Provider: 01/15/21 20:14 Mode of arrival: ambulatory Limitations: no limitations - History of Present Illness Initial Comments: Makeda is a pleasant 40-year-old female with history of migraines who presents ER today with migraine. Patient reports her headache started 4:30 M today, she attempted to take abortive medications Cozaar experiencing nausea and vomited them up at which time she decided to come the ER for management. - Related Data Home Medications Medication Instructions Recorded Confirmed Butalb/Acetaminophen/Caffeine 1 tab PO DAILY PRN 01/12/20 12/08/20 [Esgic 50-325-40 mg Tablet] Verapamil HCl [Verapamil ER] 180 mg PO DAILY 01/12/20 12/08/20 HYDROcodone/APAP 10-325MG [[place] 1 tab PO QID 12/08/20 12/08/20 10-325] Rizatriptan Odt [Maxalt Touch Up Carver] 5 mg PO BID PRN 12/08/20 12/08/20 Previous Rx's Medication Instructions Recorded Ketorolac [Toradol] 10 mg PO Q6HR PRN 5 Days #20 tab 12/08/20 Ondansetron Odt [Zofran Odt] 4 mg PO Q8HR PRN #10 tab 12/08/20 Allergies Allergy/AdvReac Type Severity Reaction Status Date / Time aspirin Allergy Rash/Hives Verified 01/15/21 19:57 divalproex sodium Allergy Chest Verified 01/15/21 19:57 [From Depakote] Pain,agitated and violent gabapentin Allergy Chest Verified 01/15/21 19:57 Pain,agitated and voilent latex Allergy Rash/Hives Verified 01/15/21 19:57 lithium [[place]] Allergy Confusion Verified 01/15/21 19:57 Penicillins Allergy Rash/Hives Verified 01/15/21 19:57 povidone-iodine Allergy Rash/Hives Verified 01/15/21 19:57 [From Betadine] soap [From Betadine] Allergy Rash/Hives Verified 01/15/21 19:57 Sulfa (Sulfonamide Allergy Rash/Hives Verified 01/15/21 19:57 Antibiotics) Review of Systems ROS Statement: Those systems with pertinent positive or pertinent negative responses have been documented in the HPI. ROS Other: All systems not noted in ROS Statement are negative. Past Medical History Past Medical History: Asthma, Cancer, GERD/Reflux Additional Past Medical History / Comment(s): left sided abdominal pain,cyst to ovary,melanoma-jaw line, hernia, migraines History of Any Multi-Drug Resistant Organisms: None Reported Past Surgical History: Adenoidectomy, Back Surgery, Orthopedic Surgery, Tonsillectomy, Tubal Ligation, Uterine Ablation Additional Past Surgical History / Comment(s): labial cyst removal, carpal tunnel bilat, Back surg. Past Anesthesia/Blood Transfusion Reactions: No Reported Reaction Past Psychological History: Bipolar, Depression, PTSD, Schizophrenia Smoking Status: Former smoker Past Alcohol Use History: None Reported Past Drug Use History: None Reported - Past Family History Mother Family Medical History: Cancer Additional Family Medical History / Comment(s): breast Father Additional Family Medical History / Comment(s): w/aneurysm General Exam - General Exam Comments Initial Comments: Physical Exam GENERAL: Patient is well-developed and well-nourished. Patient is nontoxic and well-hydrated and is in no distress. HENT: Normocephalic, Atraumatic. EYES: PERRL, EOMI PULMONARY: Unlabored respirations. CARDIOVASCULAR: RRR Warm and well perfused extremities ABDOMEN: Non-distended SKIN: No rashes or bruising : Deferred NEUROLOGIC: Alert and oriented Normal speech Normal gait MUSCULOSKELETAL: Moving all extremities with no apparent injury PSYCHIATRIC: No SI/HI Limitations: no limitations Course Vital Signs 01/15/21 19:53 Temperature 97.9 F Pulse Rate 93 Respiratory 20 Rate Blood Pressure 146/95 O2 Sat by Pulse 100 Oximetry Medical Decision Making - Medical Decision Making Patient was seen and evaluated, history is obtained from the patient, pleasant 40-year-old female with history of migraines presenting today with a migraine. Patient cannot treated at home due to vomiting. Patient received Reglan and Benadryl here in the emergency department, upon reevaluation the patient was sleeping comfortably. Patient with resolution of her nausea still has a mild headache comfortable with plan for discharge home to take her oral abortive medications Disposition Clinical Impression: Headache Disposition: HOME SELF-CARE Condition: Stable Additional Instructions: Take your home medications for headache, return for any worsening or development of new or concerning symptoms Is patient prescribed a controlled substance at d/c from ED?: No Referrals: Clover Almeida MD [Primary Care Provider] - 1-2 days
[2021-01-15 23:07] VITALS: BP 145/86; PULSE 85
== END 2021-01-15 23:07 | disposition home or self-care (01) ==
LOC: EC 19:42
DX: G43.909 Migraine, unspecified, not intractable, without status migrainosus (principal); J45.909 Unspecified asthma, uncomplicated; K21.9 Gastro-esophageal reflux disease without esophagitis; F31.9 Bipolar disorder, unspecified; F20.9 Schizophrenia, unspecified; Z87.891 Personal history of nicotine dependence; Z79.899 Other long term (current) drug therapy
CPT/HCPCS: 96374; 96375; 96361; 99283; J1200; J2765

== ENCOUNTER → 2021-04-13 | Outpatient (CLI) | payer OTHER ==
--- NOTE | 2021-04-14 10:45 | MM ---
Reason for exam: screening (asymptomatic). Baseline mammogram. History: Patient history of other cancer. Family history of breast cancer in paternal grandmother, breast cancer in mother at age 50, and breast cancer in paternal aunt. Took hormonal contraceptives for 18 years. Physical Findings: A clinical breast exam by your physician is recommended on an annual basis and results should be correlated with mammographic findings. MG 3D Screening Mammo W/Cad Bilateral CC and MLO view(s) were taken. Finding: There are 12 mm equal density (isodense) masses in the upper outer quadrant of both breasts. ASSESSMENT: Incomplete: need additional imaging evaluation, BI-RAD 0 RECOMMENDATION: Special view mammogram of both breasts. If lesion persists on supplemental views, image directed ultrasound is recommended. [facility] will attempt to contact patient to return for supplemental views and ultrasound if indicated.
== END | disposition home or self-care (01) ==
LOC: RADMAMWWP 11:40
PROVIDERS: ATTEND Family Medicine
DX: Z12.31 Encounter for screening mammogram for malignant neoplasm of breast (principal); Z80.3 Family history of malignant neoplasm of breast
CPT/HCPCS: 77063; 77067

== ENCOUNTER → 2021-04-18 | Outpatient (CLI) | payer OTHER ==
--- NOTE | 2021-04-18 13:29 | MM ---
Reason for exam: additional evaluation requested from abnormal screening. Last mammogram was performed less than 1 month ago. History: Patient history of other cancer. Family history of breast cancer in maternal grandmother, breast cancer in mother at age 50, and breast cancer in maternal aunt. Took hormonal contraceptives for 18 years. Physical Findings: A clinical breast exam by your physician is recommended on an annual basis and results should be correlated with mammographic findings. MG 3D Work Up W/Cad [place] Bilateral spot compression CC and spot compression MLO view(s) were taken. CCRM view(s) were taken of the right breast. Prior study comparison: April 13, 2021, bilateral MG 3d screening mammo w/cad. There are scattered fibroglandular densities. There is no discrete abnormality including area of concern. No significant new findings when compared with previous films. These results were verbally communicated with the patient and result sheet given to the patient on 04/18/21. ASSESSMENT: Negative, BI-RAD 1 RECOMMENDATION: Return to routine screening mammogram schedule for both breasts.
== END | disposition home or self-care (01) ==
LOC: RADMAMWWP 12:24
PROVIDERS: ATTEND Family Medicine
DX: N64.89 Other specified disorders of breast (principal); Z80.3 Family history of malignant neoplasm of breast
CPT/HCPCS: 77066; G0279; 77062

== ENCOUNTER 2021-06-02 16:49 | Emergency (ER) | payer OTHER ==
[2021-06-02 17:46] VITALS: TEMP 97.6
[2021-06-02 19:52] LABS: Appearance,Urine Cloudy (Clear); Bacteria,Urine Rare /hpf; Bilirubin,Urine Negative (Negative); Blood,Urine Negative (Negative); Color,Urine Yellow; Glucose,Urine (UA) Negative (Negative); Ketones,Urine Negative (Negative); Leukocyte Esterase,Urine Negative (Negative); Mucus,Urine Many /hpf; Nitrite,Urine Negative (Negative); Protein,Urine Trace (Negative); RBC,Urine 1 /hpf (0-5); Specific Gravity,Urine 1.027 (1.001-1.035); Squamous Epithelial Cell,Urine 5 /hpf (0-4); Urobilinogen,Urine <2.0 mg/dL (<2.0); WBC,Urine 1 /hpf (0-5)
[2021-06-02] MEDS ORDERED: ONDANSETRON 4 MG/2 ML VIAL IVP STA (20:13)
[2021-06-02] MEDS ORDERED: DEXAMETHASONE SOD PHOSPHATE 10 MG/ML 1 ML VIAL IV STA (20:13)
[2021-06-02] MEDS ORDERED: diphenhydrAMINE 50 MG/ML 1 ML VIAL IVP STA (20:13)
[2021-06-02] MEDS ORDERED: SODIUM CHLORIDE 0.9% 1,000 ML IV STA (20:13)
[2021-06-02] MEDS ORDERED: DICYCLOMINE 10 MG CAP PO STA (20:40)
[2021-06-02 21:02] LABS: Basophils # (A) 0.1 k/uL (0-0.2); Basophils % (A) 1 %; Eosinophils # (A) 0.2 k/uL (0-0.7); Eosinophils % (A) 2 %; HCT 42.1 % (34.0-46.0); HGB 13.4 gm/dL (11.4-16.0); Lymphocytes # (A) 4.2 k/uL (1.0-4.8); Lymphocytes % (A) 35 %; MCH 27.9 pg (25.0-35.0); MCHC 31.7 g/dL (31.0-37.0); MCV 87.8 fL (80.0-100.0); Mean Platelet Volume 6.7; Monocytes # (A) 0.4 k/uL (0-1.0); Monocytes % (A) 4 %; Neutrophils # (A) 6.6 k/uL (1.3-7.7); Neutrophils % (A) 56 %; Platelet Count 302 k/uL (150-450); WBC 11.8 k/uL (3.8-10.6)
[2021-06-02 21:13] LABS: Albumin 4.2 g/dL (3.5-5.0); Calcium 9.2 mg/dL (8.4-10.2); Potassium 4.2 mmol/L (3.5-5.1); Total Bilirubin 0.4 mg/dL (0.2-1.3); Total Protein 7.6 g/dL (6.3-8.2)
--- NOTE | 2021-06-02 21:44 | ED ---
Headache HPI - General Chief Complaint: Headache Stated Complaint: Abd Pain/Headache Time Seen by Provider: 06/02/21 20:00 Mode of arrival: ambulatory Limitations: no limitations - History of Present Illness Initial Comments: Patient is a 41-year-old female who presents with a migraine. Patient states symptoms started 5 days ago. The pain is typical of her other migraines. Alban gramajo took verapamil and [place] with no relief. No blurry or double vision. She denies upper respiratory symptoms. Patient states she also endorses mild upper abdominal pain that started today, worse in the epigastric region. Pain is unrelated to food intake. Patient reports nausea with no vomiting. Last bowel movement yesterday, normal and nonbloody. No chest pain or shortness of breath. Patient denies history of hypertension, hyperlipidemia, diabetes, heart attack, and stroke. Family history of cardiac disease includes her father with hypertension and diabetes. - Related Data Home Medications Medication Instructions Recorded Confirmed Butalb/Acetaminophen/Caffeine 1 tab PO BID PRN 01/12/20 06/02/21 [Esgic 50-325-40 mg Tablet] Verapamil HCl [Verapamil ER] 180 mg PO DAILY 01/12/20 06/02/21 HYDROcodone/APAP 10-325MG [[place] 1 tab PO QID PRN 12/08/20 06/02/21 10-325] Rizatriptan Odt [Maxalt Skip Tracer] 5 mg PO BID PRN 12/08/20 06/02/21 Ergocalciferol (Vitamin D2) 1,250 mcg PO WE 06/02/21 06/02/21 [Drisdol (50,000 Iu)] Ketoconazole 2% Shampoo [Nizoral] 1 applic TOPICAL DAILY PRN 06/02/21 06/02/21 Metoprolol Succinate [Toprol XL] 25 mg PO DAILY 06/02/21 06/02/21 Oxybutynin Chloride 5 mg PO BID 06/02/21 06/02/21 Triamcinolone 0.1% Ointment 1 applic TOPICAL BID 06/02/21 06/02/21 [Kenalog 0.1% Ointment] Allergies Allergy/AdvReac Type Severity Reaction Status Date / Time aspirin Allergy Rash/Hives Verified 06/02/21 23:37 divalproex sodium Allergy Chest Verified 04/28/22 23:37 [From Depakote] Pain,agitated and violent gabapentin Allergy Chest Verified 06/02/21 23:37 Pain,agitated and voilent latex Allergy Rash/Hives Verified 06/02/21 23:37 lithium [[place]] Allergy Confusion Verified 06/02/21 23:37 Penicillins Allergy Unknown Verified 06/02/21 23:37 Childhood povidone-iodine Allergy Rash/Hives Verified 06/02/21 23:37 [From Betadine] soap [From Betadine] Allergy Rash/Hives Verified 06/02/21 23:37 Sulfa (Sulfonamide Allergy Rash/Hives Verified 06/02/21 23:37 Antibiotics) Review of Systems ROS Statement: Those systems with pertinent positive or pertinent negative responses have been documented in the HPI. ROS Other: All systems not noted in ROS Statement are negative. Past Medical History Past Medical History: Asthma, Cancer, GERD/Reflux Additional Past Medical History / Comment(s): left sided abdominal pain,cyst to ovary,melanoma-jaw line, hernia, migraines History of Any Multi-Drug Resistant Organisms: None Reported Past Surgical History: Adenoidectomy, Back Surgery, Orthopedic Surgery, Tonsillectomy, Tubal Ligation, Uterine Ablation Additional Past Surgical History / Comment(s): labial cyst removal, carpal tunnel bilat, Back surg. Past Anesthesia/Blood Transfusion Reactions: No Reported Reaction Past Psychological History: Bipolar, Depression, PTSD, Schizophrenia Smoking Status: Former smoker Past Alcohol Use History: None Reported Past Drug Use History: None Reported - Past Family History Mother Family Medical History: Cancer Additional Family Medical History / Comment(s): breast Father Additional Family Medical History / Comment(s): w/aneurysm General Exam Limitations: no limitations General appearance: alert, in no apparent distress Head exam: Present: atraumatic, normocephalic, normal inspection Eye exam: Present: normal appearance, PERRL, EOMI. Absent: scleral icterus, conjunctival injection, periorbital swelling Neck exam: Present: full ROM Respiratory exam: Present: normal lung sounds bilaterally. Absent: respiratory distress, wheezes, rales, rhonchi, stridor Cardiovascular Exam: Present: regular rate, normal rhythm, normal heart sounds. Absent: systolic murmur, diastolic murmur, rubs, gallop, clicks, JVD GI/Abdominal exam: Present: soft, normal bowel sounds. Absent: distended, tenderness, guarding, rebound, rigid Back exam: Present: normal inspection. Absent: CVA tenderness (R), CVA tenderness (L) Neurological exam: Present: alert, oriented X3, CN II-XII intact Psychiatric exam: Present: normal affect, normal mood Skin exam: Present: warm, dry, intact, normal color. Absent: rash Course Vital Signs 06/02/21 06/03/21 17:43 00:58 Temperature 97.6 F Pulse Rate 85 74 Respiratory 16 18 Rate Blood Pressure 149/82 137/85 O2 Sat by Pulse 98 98 Oximetry Medical Decision Making - Medical Decision Making This is a 41 old female who presents with migraine, epigastric pain, and nausea. Thorough history and examination were performed. Patient is well-appearing and in no apparent distress. My suspicion for cardiac related chest pain is low. Heart score is 2. Patient does not have chest pain or shortness of breath. EKG shows sinus rhythm. Troponin is within normal limits. Chest x-ray is negative for acute process. The abdomen is soft and nontender. Laboratory studies were obtained. Patient has mild leukocytosis at 11.8. She declines COVID-19 testing at this time. Patient given migraine cocktail and Bentyl. On reevaluation patient states her headache has resolved but she still has a burning sensation in her stomach. Patient does have history of GERD. Pepcid and Protonix were given with no relief. I then obtained a KUB x-ray which is unremarkable. Patient likely having viral gastroenteritis. Upon discharge patient states she is having right upper quadrant abdominal pain. Gallbladder pathology could not be ruled out. Abdominal ultrasound was ordered which was negative for gallstones or other acute process. At this time there are no diagnostic studies to explain patient's symptoms. On reevaluation patient is resting comfortably. Patient refuses Tylenol for pain. Patient instructed to follow-up with her primary care provider further evaluation and management of her symptoms. She verbalizes understanding and is agreeable to this plan. Dr. Head is my attending. - Lab Data Result diagrams: 06/02/21 20:34 06/02/21 20:34 Lab Results 06/02/21 06/02/21 06/02/21 Range/Units 19:41 20:34 20:34 WBC 11.8 H (3.8-10.6) k/uL RBC 4.80 (3.80-5.40) m/uL Hgb 13.4 (11.4-16.0) gm/dL Hct 42.1 (34.0-46.0) % MCV 87.8 (80.0-100.0) fL MCH 27.9 (25.0-35.0) pg MCHC 31.7 (31.0-37.0) g/dL RDW 13.0 (11.5-15.5) % Plt Count 302 (150-450) k/uL MPV 6.7 Neutrophils % 56 % Lymphocytes % 35 % Monocytes % 4 % Eosinophils % 2 % Basophils % 1 % Neutrophils # 6.6 (1.3-7.7) k/uL Lymphocytes # 4.2 (1.0-4.8) k/uL Monocytes # 0.4 (0-1.0) k/uL Eosinophils # 0.2 (0-0.7) k/uL Basophils # 0.1 (0-0.2) k/uL Sodium 136 L (137-145) mmol/L Potassium 4.2 (3.5-5.1) mmol/L Chloride 104 (98-107) mmol/L Carbon Dioxide 26 (22-30) mmol/L Anion Gap 6 mmol/L BUN 16 (7-17) mg/dL Creatinine 0.97 (0.52-1.04) mg/dL Est GFR (CKD-EPI)AfAm 84 (>60 ml/min/1.73 sqM) Est GFR (CKD-EPI)NonAf 73 (>60 ml/min/1.73 sqM) Glucose 87 (74-99) mg/dL Calcium 9.2 (8.4-10.2) mg/dL Total Bilirubin 0.4 (0.2-1.3) mg/dL AST 17 (14-36) U/L ALT 12 (4-34) U/L Alkaline Phosphatase 76 (38-126) U/L Troponin I (0.000-0.034) ng/mL Total Protein 7.6 (6.3-8.2) g/dL Albumin 4.2 (3.5-5.0) g/dL Lipase 92 (23-300) U/L Urine Color Yellow Urine Appearance Cloudy H (Clear) Urine pH 6.0 (5.0-8.0) Ur Specific [place] 1.027 (1.001-1.035) Urine Protein Trace H (Negative) Urine Glucose (UA) Negative (Negative) Urine Ketones Negative (Negative) Urine Blood Negative (Negative) Urine Nitrite Negative (Negative) Urine Bilirubin Negative (Negative) Urine Urobilinogen <2.0 (<2.0) mg/dL Ur Leukocyte Esterase Negative (Negative) Urine RBC 1 (0-5) /hpf Urine WBC 1 (0-5) /hpf Ur Squamous Epith Cells 5 H (0-4) /hpf Urine Bacteria Rare H (None) /hpf Urine Mucus Many H (None) /hpf 06/02/21 Range/Units 20:34 WBC (3.8-10.6) k/uL RBC (3.80-5.40) m/uL Hgb (11.4-16.0) gm/dL Hct (34.0-46.0) % MCV (80.0-100.0) fL MCH (25.0-35.0) pg MCHC (31.0-37.0) g/dL RDW (11.5-15.5) % Plt Count (150-450) k/uL MPV Neutrophils % % Lymphocytes % % Monocytes % % Eosinophils % % Basophils % % Neutrophils # (1.3-7.7) k/uL Lymphocytes # (1.0-4.8) k/uL Monocytes # (0-1.0) k/uL Eosinophils # (0-0.7) k/uL Basophils # (0-0.2) k/uL Sodium (137-145) mmol/L Potassium (3.5-5.1) mmol/L Chloride (98-107) mmol/L Carbon Dioxide (22-30) mmol/L Anion Gap mmol/L BUN (7-17) mg/dL Creatinine (0.52-1.04) mg/dL Est GFR (CKD-EPI)AfAm (>60 ml/min/1.73 sqM) Est GFR (CKD-EPI)NonAf (>60 ml/min/1.73 sqM) Glucose (74-99) mg/dL Calcium (8.4-10.2) mg/dL Total Bilirubin (0.2-1.3) mg/dL AST (14-36) U/L ALT (4-34) U/L Alkaline Phosphatase (38-126) U/L Troponin I <0.012 (0.000-0.034) ng/mL Total Protein (6.3-8.2) g/dL Albumin (3.5-5.0) g/dL Lipase (23-300) U/L Urine Color Urine Appearance (Clear) Urine pH (5.0-8.0) Ur Specific [place] (1.001-1.035) Urine Protein (Negative) Urine Glucose (UA) (Negative) Urine Ketones (Negative) Urine Blood (Negative) Urine Nitrite (Negative) Urine Bilirubin (Negative) Urine Urobilinogen (<2.0) mg/dL Ur Leukocyte Esterase (Negative) Urine RBC (0-5) /hpf Urine WBC (0-5) /hpf Ur Squamous Epith Cells (0-4) /hpf Urine Bacteria (None) /hpf Urine Mucus (None) /hpf - EKG Data EKG Comments: EKG taken at 20:43 Sinus rhythm Ventricular rate 75 ME interval 155 QRS duration 90 QTC 432 Disposition Clinical Impression: Abdominal pain, Nausea, Migraine Disposition: HOME SELF-CARE Condition: Good Instructions (If sedation given, give patient instructions): Migraine Headache (ED), Acute Abdominal Pain (ED) Additional Instructions: Please take Tylenol as needed for pain. Follow-up with your primary care provider in 1 to 2 days. Return to the emergency department experience new, concerning, or worsening symptoms. Is patient prescribed a controlled substance at d/c from ED?: No Referrals: Clover Almeida MD [Primary Care Provider] - 1-2 days Time of Disposition: 00:09
[2021-06-02] MEDS ORDERED: FAMOTIDINE 20 MG TAB PO STA (22:13)
[2021-06-02] MEDS ORDERED: PANTOPRAZOLE 40 MG TABLET PO STA (22:17)
--- NOTE | 2021-06-02 23:19 | XR ---
EXAMINATION TYPE: XR chest 2V DATE OF EXAM: 06/02/2021 COMPARISON: NONE HISTORY: S/P TECHNIQUE: 2 views FINDINGS: Heart and mediastinum are normal. Lungs are clear. Diaphragm is normal. Bony thorax is inta ct. IMPRESSION: Normal chest. No change.
--- NOTE | 2021-06-02 23:21 | XR ---
EXAMINATION TYPE: XR KUB DATE OF EXAM: 06/02/2021 COMPARISON: 10/16/2013 HISTORY: Epigastric pain TECHNIQUE: 2 views FINDINGS: There is no sign of intestinal obstruction or pneumoperitoneum. Fecal pattern is normal. Th ere are rods and screws fusing posteriorly lumbar spine at L4-5. There is no evidence of a mass. Ther e are no pathologic calcifications over the kidneys. IMPRESSION: Nonacute abdomen. No adverse change.
[2021-06-03] MEDS: ACETAMINOPHEN TAB 325 MG TAB PO STA ×2 (00:56→00:57)
[2021-06-03 00:59] VITALS: BP 137/85; PULSE 74; RESP 18
--- NOTE | 2021-06-03 01:36 | US ---
EXAMINATION TYPE: US abdomen limited DATE OF EXAM: 06/03/2021 COMPARISON: CT, US CLINICAL HISTORY: RUQ pain. RUQ pain. EXAM MEASUREMENTS: Liver Length: 17.3 cm Gallbladder Wall: 0.23 cm CBD: 0.30 cm Right Kidney: 11.7 x 5.6 x 4.8 cm Limited due to overlying gas and patient's pain level. Pancreas: Limited visibility of tail due to gas. Liver: Appears coarse in echotexture. Measures upper limits of normal. Indistinct, hypoechoic area s uggestive of possible focal fatty sparing seen adjacent to the masoud hepatis: 4.5 x 2.0 x 1.2 cm. Gallbladder: Appears anechoic Evidence for sonographic Shrestha's sign: Patient felt pain throughout the RUQ during exam. CBD: Portions seen appear wnl Right Kidney: No hydronephrosis or masses seen IMPRESSION: Negative exam. No gallstones or dilated ducts. No focal liver defect.
== END 2021-06-03 01:54 | disposition home or self-care (01) ==
LOC: EC 16:49
DX: G43.909 Migraine, unspecified, not intractable, without status migrainosus (principal); R10.10 Upper abdominal pain, unspecified; D72.829 Elevated white blood cell count, unspecified; J45.909 Unspecified asthma, uncomplicated; Z87.891 Personal history of nicotine dependence; Z88.2 Allergy status to sulfonamides; Z88.3 Allergy status to other anti-infective agents; Z88.0 Allergy status to penicillin; Z91.040 Latex allergy status; Z88.8 Allergy status to other drugs, medicaments and biological substances; Z88.6 Allergy status to analgesic agent
CPT/HCPCS: 36415; 93005; 80053; 83690; 84484; 85025; 81001; 71046; 74018; 99284; 96374; 96375; 96361; J1200; J1100; J2405; 76705

== ENCOUNTER 2021-06-11 20:36 | Emergency (ER) | payer OTHER ==
[2021-06-11 20:44] VITALS: RESP 18
[2021-06-11] MEDS ORDERED: HYDROmorphone 1 MG/ML 1 ML SYRINGE IM STA ×2 (20:52→23:51)
--- NOTE | 2021-06-11 21:24 | XR ---
EXAMINATION TYPE: XR Hip RT and AP Pelvis DATE OF EXAM: 06/11/2021 COMPARISON: NONE HISTORY: Pain TECHNIQUE: 3 views FINDINGS: Pelvic ring is intact. Proximal right femur and hip joint are intact. Sacroiliac joints are intact. Acetabulum appears normal. IMPRESSION: Negative pelvis and right hip exam.
--- NOTE | 2021-06-11 21:28 | CT ---
EXAMINATION TYPE: CT lumbar spine wo con DATE OF EXAM: 06/11/2021 COMPARISON: 12/08/2020 HISTORY: pain CT DLP: 1172.4 mGycm Automated exposure control for dose reduction was used. There are rods and screws fusing posteriorly the lumbar vertebra at L4-5. There is disc prosthesis at L4-5. Vertebrae have fairly normal alignment. There is a few millimeter anterior subluxation of L4 i n relation L5. No compression fracture. No evidence of focal bone destruction. There is no lumbar par aspinal mass. Sacroiliac joints are intact. IMPRESSION: Previous surgery. No acute abnormality of the lumbar spine. No change compared to old exam. No fractu re.
[2021-06-11] MEDS ORDERED: DIAZEPAM 5 MG/ML 2 ML INJ IVP STA (22:40)
[2021-06-11] MEDS ORDERED: HYDROmorphone 1 MG/ML 1 ML SYRINGE IVP STA (22:40)
[2021-06-11] MEDS ORDERED: DIAZEPAM 5 MG/ML 2 ML INJ IM ONE (23:51)
[2021-06-12] MEDS ORDERED: ONDANSETRON 4 MG TAB PO STA (00:30)
[2021-06-12] MEDS ORDERED: ONDANSETRON 4 MG ODT STARTER PACK 2 TAB BTL PO STA (00:54)
[2021-06-12] MEDS ORDERED: CYCLOBENZAPRINE 10MG STARTER 3 TAB BTL PO STA (00:54)
--- NOTE | 2021-06-12 01:04 | ED ---
Fall HPI - General Chief Complaint: Fall Stated Complaint: Fall Source: patient, EMS Mode of arrival: EMS - History of Present Illness Initial Comments: 41-year-old female with previous history of chronic back pain with previous back surgery presents to the emergency department with back pain. She was at home and sustained a fall. She states that her dog attempted to rule out the door and she tried to stop him. She tripped on a pop bottle and fell onto her right hip. She was unable to get up and ambulate and therefore call and EMS. He did not provide her with anything for pain control. She does take [place] at home for chronic pain and did take a dose before calling EMS. She admits to numbness and tingling that is located over the lateral aspect of the right leg that extends down to the foot. She denies any saddle anesthesia. No bowel or bladder incontinence. No other alleviating, precipitating or modifying factors - Related Data Home Medications Medication Instructions Recorded Confirmed Butalb/Acetaminophen/Caffeine 1 tab PO BID PRN 01/12/20 06/11/21 [Esgic 50-325-40 mg Tablet] Verapamil HCl [Verapamil ER] 180 mg PO DAILY 01/12/20 06/11/21 HYDROcodone/APAP 10-325MG [[place] 1 tab PO QID PRN 12/08/20 06/11/21 10-325] Rizatriptan Odt [Maxalt Project Surveyor] 5 mg PO BID PRN 12/08/20 06/11/21 Ergocalciferol (Vitamin D2) 1,250 mcg PO WE 06/02/21 06/11/21 [Drisdol (50,000 Iu)] Ketoconazole 2% Shampoo [Nizoral] 1 applic TOPICAL DAILY PRN 06/02/21 06/11/21 Metoprolol Succinate [Toprol XL] 25 mg PO DAILY 06/02/21 06/11/21 Oxybutynin Chloride 5 mg PO BID 06/02/21 06/11/21 Triamcinolone 0.1% Ointment 1 applic TOPICAL BID 06/02/21 06/11/21 [Kenalog 0.1% Ointment] Omeprazole 20 mg PO DAILY 06/11/21 06/11/21 Allergies Allergy/AdvReac Type Severity Reaction Status Date / Time aspirin Allergy Rash/Hives Verified 06/02/21 23:37 divalproex sodium Allergy Chest Verified 06/02/21 23:37 [From Depakote] Pain,agitated and violent gabapentin Allergy Chest Verified 06/02/21 23:37 Pain,agitated and voilent latex Allergy Rash/Hives Verified 06/02/21 23:37 lithium [[place]] Allergy Confusion Verified 06/02/21 23:37 Penicillins Allergy Unknown Verified 06/02/21 23:37 Childhood povidone-iodine Allergy Rash/Hives Verified 06/02/21 23:37 [From Betadine] soap [From Betadine] Allergy Rash/Hives Verified 06/02/21 23:37 Sulfa (Sulfonamide Allergy Rash/Hives Verified 06/02/21 23:37 Antibiotics) Review of Systems ROS Statement: Those systems with pertinent positive or pertinent negative responses have been documented in the HPI. ROS Other: All systems not noted in ROS Statement are negative. Past Medical History Past Medical History: Asthma, Cancer, GERD/Reflux Additional Past Medical History / Comment(s): left sided abdominal pain,cyst to ovary,melanoma-jaw line, hernia, migraines History of Any Multi-Drug Resistant Organisms: None Reported Past Surgical History: Adenoidectomy, Back Surgery, Orthopedic Surgery, Tonsillectomy, Tubal Ligation, Uterine Ablation Additional Past Surgical History / Comment(s): labial cyst removal, carpal tunnel bilat, Back surg. Past Anesthesia/Blood Transfusion Reactions: No Reported Reaction Past Psychological History: Bipolar, Depression, PTSD, Schizophrenia Smoking Status: Former smoker Past Alcohol Use History: None Reported Past Drug Use History: None Reported - Past Family History Mother Family Medical History: Cancer Additional Family Medical History / Comment(s): breast Father Additional Family Medical History / Comment(s): w/aneurysm Course Vital Signs 06/11/21 06/11/21 06/12/21 20:38 20:42 00:35 Temperature 98.8 F Pulse Rate 95 95 90 Respiratory 18 18 18 Rate Blood Pressure 159/93 140/101 O2 Sat by Pulse 98 98 97 Oximetry Medical Decision Making - Medical Decision Making Upon arrival patient is placed into room 2. A thorough history and physical exam was performed. Patient is given a dose of pain medications for pain control. CT of the back and x-ray of the right hip is performed. Imaging is reviewed and demonstrates no acute injuries. Did reevaluate the patient who continues to complain of pain therefore she is given a second dose of pain meds. Patient reevaluated and resting comfortably at this time. Patient ready for discharge home. She is given a Flexeril starter pack. She does have some nausea and vomiting after pain medication administration therefore is given a dose of Zofran in the emergency room. She felt her primary care doctor in 2-4 days and return for any new or worsening symptoms Disposition Clinical Impression: Fall, Back pain Disposition: HOME SELF-CARE Condition: Stable Instructions (If sedation given, give patient instructions): Low Back Strain (ED) Additional Instructions: I recommend Lisinopril or Norvasc for blood pressure control. Take the Zofran for nausea and flexeril for pain control. Return for any new or worsening symptoms. Is patient prescribed a controlled substance at d/c from ED?: No Referrals: Clover Almeida MD [Primary Care Provider] - 1-2 days Time of Disposition: 01:04
[2021-06-12 01:29] VITALS: BP 145/93; PULSE 75; TEMP 97.8
== END 2021-06-12 01:29 | disposition home or self-care (01) ==
LOC: EC 20:36
DX: M54.9 Dorsalgia, unspecified (principal); R11.2 Nausea with vomiting, unspecified; J45.909 Unspecified asthma, uncomplicated; K21.9 Gastro-esophageal reflux disease without esophagitis; F31.9 Bipolar disorder, unspecified; F20.9 Schizophrenia, unspecified; Z87.891 Personal history of nicotine dependence; Z79.899 Other long term (current) drug therapy; W01.0XXA Fall on same level from slipping, tripping and stumbling without subsequent striking against object, initial encounter; Y92.009 Unspecified place in unspecified non-institutional (private) residence as the place of occurrence of the external cause
CPT/HCPCS: 73502; 72131; 99284; 96372 ×3; J3360; J1170 ×2; S0119

== ENCOUNTER 2021-08-30 07:01 | Day surgery (SDC) | payer OTHER ==
[2021-08-26 12:09] VITALS: BMI 37.1
[~2021-08-30 07:01] MED LIST: LACTATED RINGERS 1,000 ML IV SCH; LIDOCAINE 1% (10MG/ML) FOR IV START INTRADERMA PRN
[2021-08-30 07:51] VITALS: TEMP 97.6
[2021-08-30] MEDS ORDERED: PROPOFOL 10 MG/ML 20 ML VIAL IV ONE (09:00)
[2021-08-30] MEDS ORDERED: LIDOCAINE 2% INJ 20 MG/ML (2 ML VIAL) ONE (09:00)
--- NOTE | 2021-08-30 09:11 | P.PCN ---
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 She tried on PPIs with no help. She is been off medications for the last 1 year duration. Because of severe heartburn and epigastric pain with intermittent nausea vomiting.. PROCEDURE PERFORMED: Esophagogastroduodenoscopy with biopsy. PREOPERATIVE DIAGNOSIS: Refractory heartburn. IV sedation per anesthesia. PROCEDURE: After informed consent was obtained, the patient was brought into the endoscopy unit. IV sedation was administered by Anesthesia under continuous monitoring. Initially the Olympus GIF-140 video endoscope was inserted into the mouth. Esophagus intubated without any difficulty. It was gradually advanced into the stomach and duodenum and carefully examined. The bulb and the second part of the duodenum appeared normal. The scope at this time was withdrawn to the stomach, adequately insufflated with air, and upon careful examination, mucosa of the antrum, had mild patchy areas of erythema which was biopsied. The body, cardia and the fundus appeared normal. The scope was then withdrawn into the esophagus. The GE junction was located at 39 cm from the incisors. The esophagus appeared normal. There were no erosions or ulcerations seen, biopsies were done from the distal esophagus and the patient tolerated the procedure well. IMPRESSION: 1. Normal-appearing esophagus with no evidence of esophagitis or Saeed's esophagus. 2. Mild antral gastritis. RECOMMENDATIONS: The findings of this examination were discussed with the patient as well as a family. She was advised to follow with the biopsy results.. Her symptoms could be extended the basis of a functional heartburn and hence recommend Carafate 1 g 4 times daily and follow antireflux measures. If she has persistent symptoms she was advised to follow up in office for further management.
[2021-08-30 09:40] VITALS: PULSE 70; RESP 16
[2021-08-30] MEDS ORDERED: ONDANSETRON 4 MG/2 ML VIAL ONE (10:05)
[2021-08-30] MEDS ORDERED: KETOROLAC 15 MG/ML 1 ML VIAL ONE (10:05)
[2021-08-30] MEDS ORDERED: KETOROLAC 15 MG/ML 1 ML VIAL IVP ONE (10:12)
[2021-08-30] MEDS ORDERED: ONDANSETRON 4 MG/2 ML VIAL IVP ONE (10:14)
[2021-08-30 10:46] VITALS: BP 132/88
== END 2021-08-30 10:58 | disposition home or self-care (01) ==
LOC: ORWHC2ENDO 07:01
PROVIDERS: ATTEND Internal Medicine Gastroenterology
DX: K29.50 Unspecified chronic gastritis without bleeding (principal); B96.81 Helicobacter pylori [H. pylori] as the cause of diseases classified elsewhere; K20.90 Esophagitis, unspecified without bleeding; J45.909 Unspecified asthma, uncomplicated; G47.33 Obstructive sleep apnea (adult) (pediatric); Z88.2 Allergy status to sulfonamides; Z88.6 Allergy status to analgesic agent; Z91.040 Latex allergy status; Z88.8 Allergy status to other drugs, medicaments and biological substances; Z88.0 Allergy status to penicillin; Z91.09 Other allergy status, other than to drugs and biological substances; Z79.899 Other long term (current) drug therapy; Z87.891 Personal history of nicotine dependence; Z80.3 Family history of malignant neoplasm of breast; Z82.49 Family history of ischemic heart disease and other diseases of the circulatory system
CPT/HCPCS: 81025; 88305; 88342; 43239; J2405; J1885; J2704; J2001

== ENCOUNTER → 2021-09-04 | Outpatient (CLI) | payer OTHER ==
--- NOTE | 2021-09-04 22:50 | MR ---
EXAMINATION TYPE: MR knee RT wo con DATE OF EXAM: 09/04/2021 COMPARISON: 09/16/2015 HISTORY: Right knee pain. Multiplanar multi echo imaging of the right knee with no contrast. The anterior and posterior cruciate ligaments are intact. There is moderate size knee joint effusion. The medial and lateral collateral ligaments appear intact. The medial and lateral menisci appear wit hin normal limits. No evidence of a tear. The patella is intact. No fracture seen. No evidence of foc al bone destruction. IMPRESSION: No evidence of meniscal or ligamentous tear. There is a moderate size knee joint effusion which is in creased slightly compared to old exam. No significant joint space narrowing. No fracture.
--- NOTE | 2021-09-04 22:55 | MR ---
EXAMINATION TYPE: MR knee LT wo con DATE OF EXAM: 09/04/2021 COMPARISON: 01/14/2021 HISTORY: Left knee pain. Multiplanar multiecho imaging of the left knee with no contrast. Moderate knee joint effusion. The anterior and posterior cruciate ligaments are intact. The collatera l ligaments appear intact. There is mild increased signal in the posterior horn of the medial meniscu s that extends to the inferior surface. There is some mild thinning of the articular cartilage of the patella without change. No fracture see n. No evidence of focal bone destruction. IMPRESSION: There are some degenerative changes in the patella with cartilage thinning and minimal subchondral cy stic changes which appear increased slightly compared to old exams. No fracture seen. No evidence of ligament or meniscal tear.
== END | disposition home or self-care (01) ==
LOC: RADMRIMAIN 06:30
PROVIDERS: ATTEND Orthopaedic Surgery
DX: S89.91XA Unspecified injury of right lower leg, initial encounter (principal); S89.92XA Unspecified injury of left lower leg, initial encounter; M25.461 Effusion, right knee

== ENCOUNTER 2021-10-01 18:50 | Emergency (ER) | payer OTHER ==
[2021-10-01 18:54] VITALS: RESP 18; TEMP 98.5
[2021-10-01] MEDS ORDERED: ONDANSETRON 4 MG/2 ML VIAL IVP STA (20:38)
[2021-10-01] MEDS ORDERED: HYDROmorphone 0.5 MG/0.5 ML SYRINGE IVP STA (20:38)
--- NOTE | 2021-10-01 20:45 | ED ---
General Adult HPI - General Chief complaint: Recheck/Abnormal Lab/Rx Stated complaint: 09/29 Surgery/Pain Time Seen by Provider: 10/01/21 20:15 Source: patient, RN notes reviewed Mode of arrival: ambulatory Limitations: no limitations - History of Present Illness Initial comments: 41-year-old female presents to the emergency Department with complaints of bilateral knee pain status post arthroscopic surgery on the . Patient states she developed increased pain and swelling in the right lower extremity today and spoke with the on-call surgeon who recommended she be seen in the emergency department to rule out blood clot. States she has been taking her medication as prescribed but it is not sufficient for the pain. States she has been applying ice and elevating the leg as she was instructed. Reports ambulating but not excessively. Denies fever, chills, chest pain, shortness of breath, difficulty breathing, abdominal pain, nausea, vomiting, diarrhea, or dysuria. - Related Data Home Medications Medication Instructions Recorded Confirmed Verapamil HCl [Verapamil ER] 180 mg PO DAILY 01/12/20 08/26/21 Metoprolol Succinate [Toprol XL] 25 mg PO DAILY 06/02/21 08/26/21 Albuterol Inhaler [Ventolin Hfa 1 puff INHALATION DIRECTED PRN 08/26/21 08/26/21 Inhaler] Butalb/APAP/Caff 50-325-40Mg 1 tab PO DIRECTED PRN 08/26/21 08/26/21 [Fioricet 50-325-40] Rimegepant Sulfate [Nurtec Odt] 75 mg PO DIRECTED PRN 08/26/21 08/26/21 lamoTRIgine [lamoTRIgine ER] 100 mg PO DAILY 08/26/21 08/26/21 Allergies Allergy/AdvReac Type Severity Reaction Status Date / Time aspirin Allergy Rash/Hives Verified 10/01/21 18:54 divalproex sodium Allergy Chest Verified 10/01/21 18:54 [From Depakote] Pain,agitated and violent gabapentin Allergy Chest Verified 10/01/21 18:54 Pain,agitated and voilent latex Allergy Rash/Hives Verified 10/01/21 18:54 lithium [[place]] Allergy Confusion Verified 10/01/21 18:54 Penicillins Allergy Anaphylaxis Verified 10/01/21 18:54 povidone-iodine Allergy Rash/Hives Verified 10/01/21 18:54 [From Betadine] soap [From Betadine] Allergy Rash/Hives Verified 10/01/21 18:54 Sulfa (Sulfonamide Allergy Rash/Hives Verified 10/01/21 18:54 Antibiotics) duloxetine [From Cymbalta] AdvReac Unknown violent Verified 10/01/21 18:54 Review of Systems ROS Statement: Those systems with pertinent positive or pertinent negative responses have been documented in the HPI. ROS Other: All systems not noted in ROS Statement are negative. Past Medical History Past Medical History: Asthma, Cancer, Chest Pain / Angina, GERD/Reflux, Hypertension Additional Past Medical History / Comment(s): left abdominal pain, ovarian cyst, hx melanoma, hernia- pt unsure where, migraines ,back pain. History of Any Multi-Drug Resistant Organisms: None Reported Past Surgical History: Adenoidectomy, Back Surgery, Orthopedic Surgery, Tonsillectomy, Tubal Ligation, Uterine Ablation Additional Past Surgical History / Comment(s): labial cyst removal, carpal tunnel bilat, Back surg with maricruz & cage. , arthroscopy right knee Past Anesthesia/Blood Transfusion Reactions: No Reported Reaction, Motion Sickness Past Psychological History: Anxiety, Bipolar, Depression, PTSD, Schizophrenia Smoking Status: Former smoker Past Alcohol Use History: None Reported Past Drug Use History: None Reported - Past Family History Mother Family Medical History: Cancer Additional Family Medical History / Comment(s): breast cancer Father Additional Family Medical History / Comment(s): w/aneurysm General Exam Limitations: no limitations (Well-developed, well-nourished female in no acute distress. Initial temperature 98.5, pulse 97, respirations 18, blood pressure 132/82, pulse ox 99% on room air.) General appearance: alert, in no apparent distress ENT exam: Present: normal exam, normal oropharynx Respiratory exam: Present: normal lung sounds bilaterally. Absent: respiratory distress, wheezes, rales, rhonchi, stridor, chest wall tenderness Cardiovascular Exam: Present: regular rate, normal rhythm, normal heart sounds. Absent: systolic murmur, diastolic murmur, rubs, gallop, clicks GI/Abdominal exam: Present: soft, normal bowel sounds. Absent: distended, tenderness, guarding, rebound, rigid Left Upper Leg exam: Present: normal inspection, full ROM. Absent: tenderness, swelling Knee exam: Present: swelling (2 surgical incisions intact with no surrounding erythema. Dry blood noted on dressing. No active bleeding at this time. Minimal tenderness or discomfort. Mild swelling appears normal.). Absent: normal inspection, full ROM, tenderness Lower Leg exam: Present: normal inspection, full ROM. Absent: tenderness, swelling Foot/Toe exam: Present: normal inspection, full ROM. Absent: tenderness, swelling Neurovascular tendon exam: Present: no vascular compromise Right Upper Leg exam: Present: normal inspection, full ROM Knee exam: Present: tenderness (Tenderness upon palpation of the posterior aspect of the right lower extremity and surrounding right knee), swelling (2 surgical incisions intact with no surrounding erythema. Dry blood noted on dressing. No active bleeding at this time. Mild swelling extends anterolateral from the right knee and is tender). Absent: normal inspection, full ROM Ankle exam: Present: normal inspection, full ROM. Absent: tenderness, swelling Foot/Toe exam: Present: normal inspection, full ROM. Absent: tenderness, swelling Neurovascular tendon exam: Present: no vascular compromise Neurological exam: Present: alert, oriented X3, CN II-XII intact Psychiatric exam: Present: normal affect, normal mood Skin exam: Present: warm, dry, normal color. Absent: rash Course Vital Signs 10/01/21 10/01/21 18:51 22:30 Temperature 98.5 F Pulse Rate 97 84 Respiratory 18 18 Rate Blood Pressure 132/82 128/96 O2 Sat by Pulse 99 97 Oximetry - Reevaluation(s) Reevaluation #1: 10/01/21 22:00 Upon reassessment, patient states pain persists and describes it as a burning discomfort. Updated on results of workup. Will repeat dose of pain medication and instruct her to follow up with her surgeon for a recheck this week. Medical Decision Making - Medical Decision Making This is a 41-year-old female with recent bilateral knee arthroscopic surgery who presents to the emergency department for evaluation of increased pain and swelling. Upon exam, patient is well-appearing and in no acute distress. She has mild pretibial edema of the right lower leg, worse than left. She is concerned about postoperative swelling and bleeding and spoke with her surgeon who recommended she be seen in the emergency department to ensure that there is not a blood clot. Distal sensation and neurovascular status intact. Small amount of dried blood drainage on incision site dressings is not concerning. No surrounding erythema. Venous Doppler study was negative. Laboratory studies are unremarkable. Patient was given pain medication with some improvement. She is instructed to follow up with her surgeon this week for a recheck and continue to take her pain medication as prescribed. Return parameters were discussed in detail. Patient verbalizes understanding and agrees with this plan. Attending:Marlon. - Lab Data Result diagrams: 10/01/21 21:12 10/01/21 21:12 Lab Results 10/01/21 10/01/21 10/01/21 Range/Units 21:12 21:12 21:12 WBC 10.5 (3.8-10.6) k/uL RBC 4.97 (3.80-5.40) m/uL Hgb 13.8 (11.4-16.0) gm/dL Hct 43.2 (34.0-46.0) % MCV 86.9 (80.0-100.0) fL MCH 27.9 (25.0-35.0) pg MCHC 32.1 (31.0-37.0) g/dL RDW 12.9 (11.5-15.5) % Plt Count 377 (150-450) k/uL MPV 7.0 Neutrophils % 53 % Lymphocytes % 38 % Monocytes % 5 % Eosinophils % 2 % Basophils % 1 % Neutrophils # 5.6 (1.3-7.7) k/uL Lymphocytes # 4.0 (1.0-4.8) k/uL Monocytes # 0.5 (0-1.0) k/uL Eosinophils # 0.2 (0-0.7) k/uL Basophils # 0.1 (0-0.2) k/uL PT 10.5 (9.0-12.0) sec INR 1.0 (<1.2) APTT 23.1 (22.0-30.0) sec Sodium 138 (137-145) mmol/L Potassium 4.1 (3.5-5.1) mmol/L Chloride 102 (98-107) mmol/L Carbon Dioxide 24 (22-30) mmol/L Anion Gap 12 mmol/L BUN 11 (7-17) mg/dL Creatinine 1.15 H (0.52-1.04) mg/dL Est GFR (CKD-EPI)AfAm 68 (>60 ml/min/1.73 sqM) Est GFR (CKD-EPI)NonAf 59 (>60 ml/min/1.73 sqM) Glucose 87 (74-99) mg/dL Calcium 9.5 (8.4-10.2) mg/dL - Radiology Data Radiology results: report reviewed, image reviewed Venous Doppler study of the right lower extremity was obtained. Report was reviewed in its entirety. Impression per Dr. Quintana is no sign of deep vein thrombosis in the right leg. Disposition Clinical Impression: Postoperative pain of knee Disposition: HOME SELF-CARE Condition: Stable Additional Instructions: Continue taking your home medications as prescribed. Elevate legs while at rest. Maintain mobility with frequent ambulation. May need to increase periods of rest if pain and/or swelling persists. Follow-up with your surgeon. Call on Sunday to schedule an appointment. Return to the emergency department with any new, worsening, or concerning symptoms. Is patient prescribed a controlled substance at d/c from ED?: No Referrals: Clover Almeida MD [Primary Care Provider] - 1-2 days Time of Disposition: 22:50
--- NOTE | 2021-10-01 22:06 | US ---
EXAMINATION TYPE: US venous doppler duplex LE RT DATE OF EXAM: 10/01/2021 9:54 PM COMPARISON: NONE CLINICAL HISTORY: RLE pain and swelling. SIDE PERFORMED: Right TECHNIQUE: The lower extremity deep venous system is examined utilizing real time linear array sonog betty with graded compression, doppler sonography and color-flow sonography. VESSELS IMAGED: Common Femoral Vein Deep Femoral Vein Greater Saphenous Vein * Femoral Vein Popliteal Vein Small Saphenous Vein * Proximal Calf Veins (* superficial vessels) Right Leg: Negative for DVT IMPRESSION: No sign of deep vein thrombosis in the right leg..
[2021-10-01 22:08] LABS: Basophils # (A) 0.1 k/uL (0-0.2); Basophils % (A) 1 %; Eosinophils # (A) 0.2 k/uL (0-0.7); Eosinophils % (A) 2 %; HCT 43.2 % (34.0-46.0); HGB 13.8 gm/dL (11.4-16.0); Lymphocytes % (A) 38 %; MCH 27.9 pg (25.0-35.0); MCHC 32.1 g/dL (31.0-37.0); MCV 86.9 fL (80.0-100.0); Monocytes # (A) 0.5 k/uL (0-1.0); Monocytes % (A) 5 %; Neutrophils # (A) 5.6 k/uL (1.3-7.7); Neutrophils % (A) 53 %; Platelet Count 377 k/uL (150-450); RBC 4.97 m/uL (3.80-5.40); RDW 12.9 % (11.5-15.5); WBC 10.5 k/uL (3.8-10.6)
[2021-10-01 22:17] LABS: Partial Thromboplastin Time 23.1 sec (22.0-30.0); Prothrombin Time 10.5 sec (9.0-12.0)
[2021-10-01 22:29] LABS: Calcium 9.5 mg/dL (8.4-10.2); Potassium 4.1 mmol/L (3.5-5.1)
[2021-10-01 22:31] VITALS: BP 128/96; PULSE 84
[2021-10-01] MEDS ORDERED: HYDROmorphone 1 MG/ML 1 ML SYRINGE IVP STA (22:48)
== END 2021-10-01 23:09 | disposition home or self-care (01) ==
LOC: EC 18:50
DX: M25.561 Pain in right knee (principal); M25.562 Pain in left knee; G89.18 Other acute postprocedural pain; Z79.51 Long term (current) use of inhaled steroids; Z91.040 Latex allergy status; Z88.0 Allergy status to penicillin; Z88.8 Allergy status to other drugs, medicaments and biological substances; Z88.6 Allergy status to analgesic agent; Z91.048 Other nonmedicinal substance allergy status; J45.909 Unspecified asthma, uncomplicated; K21.9 Gastro-esophageal reflux disease without esophagitis; I10 Essential (primary) hypertension; Z87.891 Personal history of nicotine dependence
CPT/HCPCS: 99284 ×2; 96374 ×2; 96375 ×2; 96376 ×2; 36415; 80048; 85025; 85610; 85730; 93971; J2405; J1170 ×2

== ENCOUNTER 2021-10-15 19:35 | Emergency (ER) | payer OTHER ==
[2021-10-15 20:11] VITALS: BP 138/89; PULSE 100; RESP 22; TEMP 98.1
--- NOTE | 2021-10-15 20:53 | XR ---
EXAMINATION TYPE: XR knee complete LT DATE OF EXAM: 10/15/2021 COMPARISON: NONE HISTORY: Knee pain TECHNIQUE: 3 view FINDINGS: Joint spaces are fairly normal. I see no fracture nor dislocation. There are no pathologic calcifications. No sign of joint effusion. IMPRESSION: Negative left knee exam.
[2021-10-15] MEDS ORDERED: KETOROLAC 15 MG/ML 1 ML VIAL IM STA (21:36)
[2021-10-15] MEDS ORDERED: ORPHENADRINE 30 MG/ML 2 ML VIAL IM STA (21:36)
--- NOTE | 2021-10-15 21:42 | ED ---
Lower Extremity Injury HPI - General Chief Complaint: Extremity Injury, Lower Stated Complaint: lt knee pain Time Seen by Provider: 10/15/21 20:38 Source: patient, family, RN notes reviewed, old records reviewed Mode of arrival: ambulatory Limitations: no limitations - History of Present Illness Initial Comments: 41-year-old female presents to the emergency room with complaints of left knee pain since yesterday. Patient states her 75 pound autistic son fell backward onto her knee while she was sitting causing her knee to bend backwards. Patient states she's had increased pain with bruising now. She did have arthroscopic knee surgery at [facility] last month. Complaint: knee injury (left) -: days(s) (yesterday) Type of Injury: other (child fell on knee while she was sitting) Place: home Severity scale (1-10): 3 Worsens With: movement - Related Data Home Medications Medication Instructions Recorded Confirmed Verapamil HCl [Verapamil ER] 180 mg PO DAILY 01/12/20 08/26/21 Metoprolol Succinate [Toprol XL] 25 mg PO DAILY 06/02/21 08/26/21 Albuterol Inhaler [Ventolin Hfa 1 puff INHALATION DIRECTED PRN 08/26/21 08/26/21 Inhaler] Butalb/APAP/Caff 50-325-40Mg 1 tab PO DIRECTED PRN 08/26/21 08/26/21 [Fioricet 50-325-40] Rimegepant Sulfate [Nurtec Odt] 75 mg PO DIRECTED PRN 08/26/21 08/26/21 lamoTRIgine [lamoTRIgine ER] 100 mg PO DAILY 08/26/21 08/26/21 Allergies Allergy/AdvReac Type Severity Reaction Status Date / Time aspirin Allergy Rash/Hives Verified 10/15/21 20:11 divalproex sodium Allergy Chest Verified 10/15/21 20:11 [From Depakote] Pain,agitated and violent gabapentin Allergy Chest Verified 10/15/21 20:11 Pain,agitated and voilent latex Allergy Rash/Hives Verified 10/15/21 20:11 lithium [[place]] Allergy Confusion Verified 10/15/21 20:11 Penicillins Allergy Anaphylaxis Verified 10/15/21 20:11 povidone-iodine Allergy Rash/Hives Verified 10/15/21 20:11 [From Betadine] soap [From Betadine] Allergy Rash/Hives Verified 10/15/21 20:11 Sulfa (Sulfonamide Allergy Rash/Hives Verified 10/15/21 20:11 Antibiotics) duloxetine [From Cymbalta] AdvReac Unknown violent Verified 10/15/21 20:11 Review of Systems ROS Statement: Those systems with pertinent positive or pertinent negative responses have been documented in the HPI. ROS Other: All systems not noted in ROS Statement are negative. Past Medical History Past Medical History: Asthma, Cancer, Chest Pain / Angina, GERD/Reflux, Hypertension Additional Past Medical History / Comment(s): left abdominal pain, ovarian cyst, hx melanoma, hernia- pt unsure where, migraines ,back pain. History of Any Multi-Drug Resistant Organisms: None Reported Past Surgical History: Adenoidectomy, Back Surgery, Orthopedic Surgery, Tonsillectomy, Tubal Ligation, Uterine Ablation Additional Past Surgical History / Comment(s): labial cyst removal, carpal tunnel bilat, Back surg with maricruz & cage. , arthroscopy right knee Past Anesthesia/Blood Transfusion Reactions: No Reported Reaction, Motion Sickness Past Psychological History: Anxiety, Bipolar, Depression, PTSD, Schizophrenia Smoking Status: Former smoker Past Alcohol Use History: None Reported Past Drug Use History: None Reported - Past Family History Mother Family Medical History: Cancer Additional Family Medical History / Comment(s): breast cancer Father Additional Family Medical History / Comment(s): w/aneurysm General Exam Limitations: no limitations General appearance: alert, in no apparent distress Head exam: Present: atraumatic Eye exam: Absent: scleral icterus, conjunctival injection Respiratory exam: Absent: respiratory distress, accessory muscle use Cardiovascular Exam: Present: regular rate Left Knee exam: Present: tenderness, ecchymosis, pain/laxity with valgus (Yellow- green bruising), pain/laxity with varus, full knee extension. Absent: full ROM, abrasion, laceration, deformity, crepitus, dislocation, erythema Lower Leg exam: Absent: tenderness, swelling, ecchymosis, palpable cord, Homans' sign Neurovascular tendon exam: Present: no vascular compromise. Absent: abnormal cap refill, extremity cold to touch, pallor, foot drop Neurological exam: Present: alert, oriented X3 Psychiatric exam: Present: normal affect, normal mood Skin exam: Present: warm, dry, intact, normal color. Absent: rash, cyanosis, diaphoretic Course Vital Signs 10/15/21 20:08 Temperature 98.1 F Pulse Rate 100 Respiratory 22 Rate Blood Pressure 138/89 O2 Sat by Pulse 97 Oximetry Medical Decision Making - Medical Decision Making X-ray left knee negative for fracture. No evidence of effusion. There is some minimal green and yellow bruising lateral aspect of the knee. Patient was placed in a knee immobilizer, she is neurovascularly intact. Directed to rest, ice and follow-up with her orthopedic doctor at [facility] next week. Tylenol and/or Motrin as needed for pain. She is agreeable to this plan of care. Case discussed with Dr. Head Disposition Clinical Impression: Internal derangement of left knee Disposition: HOME SELF-CARE Condition: Good Instructions (If sedation given, give patient instructions): Knee Pain (ED) Additional Instructions: Rest, ice, elevate and take Tylenol and/or Motrin as needed for pain. Wear knee immobilizer until seen by orthopedics. Do not sleep in the immobilizer. Is patient prescribed a controlled substance at d/c from ED?: No Referrals: Clover Almeida MD [Primary Care Provider] - 1-2 days Time of Disposition: 21:42
== END 2021-10-15 21:50 | disposition home or self-care (01) ==
LOC: EC 19:35
DX: M23.92 Unspecified internal derangement of left knee (principal); J45.909 Unspecified asthma, uncomplicated; K21.9 Gastro-esophageal reflux disease without esophagitis; I10 Essential (primary) hypertension; F41.9 Anxiety disorder, unspecified; F31.9 Bipolar disorder, unspecified; F43.10 Post-traumatic stress disorder, unspecified; F20.9 Schizophrenia, unspecified; Z88.6 Allergy status to analgesic agent; Z88.1 Allergy status to other antibiotic agents; Z88.9 Allergy status to unspecified drugs, medicaments and biological substances; Z88.0 Allergy status to penicillin; Z91.040 Latex allergy status; Z91.048 Other nonmedicinal substance allergy status; Z91.041 Radiographic dye allergy status; Z76.89 Persons encountering health services in other specified circumstances; Z88.2 Allergy status to sulfonamides; Z88.8 Allergy status to other drugs, medicaments and biological substances; Z87.891 Personal history of nicotine dependence
CPT/HCPCS: 99283; 96374; 96375; 73562; 96372 ×2; L1830; J2360; J1885; 99284

== ENCOUNTER 2021-12-08 22:35 | Emergency (ER) | payer OTHER ==
[2021-12-08 23:02] VITALS: RESP 16; TEMP 98.1
--- NOTE | 2021-12-08 23:56 | XR ---
EXAMINATION TYPE: XR ankle complete RT DATE OF EXAM: 12/08/2021 COMPARISON: NONE HISTORY: Pain TECHNIQUE: 3 views FINDINGS: Ankle mortise is anatomic. I see no fracture nor dislocation. Joint spaces are normal. No p athologic calcification. IMPRESSION: Negative right ankle exam.
--- NOTE | 2021-12-08 23:59 | XR ---
EXAMINATION TYPE: XR knee complete RT DATE OF EXAM: 12/08/2021 COMPARISON: 08/15/2019 HISTORY: Pain TECHNIQUE: 3 views FINDINGS: There is no fracture nor dislocation. Joint spaces are normal. No sign of a joint effusion. IMPRESSION: Negative right knee exam. No adverse change.
[2021-12-09] MEDS ORDERED: IBUPROFEN 600 MG TAB PO STA (01:08)
[2021-12-09] MEDS ORDERED: ACETAMINOPHEN TAB 325 MG TAB PO STA (01:08)
--- NOTE | 2021-12-09 01:12 | ED ---
General Adult HPI - General Chief complaint: Extremity Injury, Upper Stated complaint: Right ankle injury Time Seen by Provider: 12/09/21 00:52 Source: patient, family, RN notes reviewed, old records reviewed Mode of arrival: wheelchair - History of Present Illness Initial comments: 41-year-old female presents to emergency room with complaints of right ankle pain after hitting it on the metal frame of the bed about 5 minutes before coming to the hospital. States the pain shoots up her leg to her knee. -: minutes(s) (5) Location: right, lower extremity (ankle) Severity scale (1-10): 8 Quality: aching, constant, other (shooting) Consistency: constant Improves with: immobilization Worsens with: movement, other (palpation) Associated Symptoms: denies other symptoms Treatments Prior to Arrival: none - Related Data Home Medications Medication Instructions Recorded Confirmed Verapamil HCl [Verapamil ER] 180 mg PO DAILY 01/12/20 08/26/21 Metoprolol Succinate [Toprol XL] 25 mg PO DAILY 06/02/21 08/26/21 Albuterol Inhaler [Ventolin Hfa 1 puff INHALATION DIRECTED PRN 08/26/21 08/26/21 Inhaler] Butalb/APAP/Caff 50-325-40Mg 1 tab PO DIRECTED PRN 08/26/21 08/26/21 [Fioricet 50-325-40] Rimegepant Sulfate [Nurtec Odt] 75 mg PO DIRECTED PRN 08/26/21 08/26/21 lamoTRIgine [lamoTRIgine ER] 100 mg PO DAILY 08/26/21 08/26/21 Allergies Allergy/AdvReac Type Severity Reaction Status Date / Time aspirin Allergy Rash/Hives Verified 12/08/21 23:02 divalproex sodium Allergy Chest Verified 12/08/21 23:02 [From Depakote] Pain,agitated and violent gabapentin Allergy Chest Verified 12/08/21 23:02 Pain,agitated and voilent latex Allergy Rash/Hives Verified 12/08/21 23:02 lithium [[place]] Allergy Confusion Verified 12/08/21 23:02 Penicillins Allergy Anaphylaxis Verified 12/08/21 23:02 povidone-iodine Allergy Rash/Hives Verified 12/08/21 23:02 [From Betadine] soap [From Betadine] Allergy Rash/Hives Verified 12/08/21 23:02 Sulfa (Sulfonamide Allergy Rash/Hives Verified 12/08/21 23:02 Antibiotics) duloxetine [From Cymbalta] AdvReac Unknown violent Verified 12/08/21 23:02 Review of Systems ROS Statement: Those systems with pertinent positive or pertinent negative responses have been documented in the HPI. ROS Other: All systems not noted in ROS Statement are negative. Past Medical History Past Medical History: Asthma, Cancer, Chest Pain / Angina, GERD/Reflux, Hypertension Additional Past Medical History / Comment(s): left abdominal pain, ovarian cyst, hx melanoma, hernia- pt unsure where, migraines ,back pain. History of Any Multi-Drug Resistant Organisms: None Reported Past Surgical History: Adenoidectomy, Back Surgery, Orthopedic Surgery, Tonsillectomy, Tubal Ligation, Uterine Ablation Additional Past Surgical History / Comment(s): labial cyst removal, carpal tunnel bilat, Back surg with maricruz & cage. , arthroscopy right knee Past Anesthesia/Blood Transfusion Reactions: No Reported Reaction, Motion Sickness Past Psychological History: Anxiety, Bipolar, Depression, PTSD, Schizophrenia Smoking Status: Former smoker Past Alcohol Use History: None Reported Past Drug Use History: None Reported - Past Family History Mother Family Medical History: Cancer Additional Family Medical History / Comment(s): breast cancer Father Additional Family Medical History / Comment(s): w/aneurysm General Exam General appearance: alert, in no apparent distress Head exam: Present: atraumatic, normocephalic, normal inspection Eye exam: Absent: scleral icterus, conjunctival injection, periorbital swelling Respiratory exam: Present: normal lung sounds bilaterally. Absent: respiratory distress, wheezes, rales, rhonchi, stridor, accessory muscle use Cardiovascular Exam: Present: regular rate Right Ankle exam: Present: tenderness (Lateral malleolus), swelling, ecchymosis. Absent: deformity Foot/Toe exam: Present: full ROM. Absent: tenderness, swelling, ecchymosis, deformity Neurovascular tendon exam: Present: no vascular compromise. Absent: abnormal cap refill, extremity cold to touch, pallor, foot drop Neurological exam: Present: alert, oriented X3 Psychiatric exam: Present: normal affect, normal mood Skin exam: Present: warm, dry, normal color. Absent: cyanosis, diaphoretic Course Vital Signs 12/08/21 12/09/21 23:00 01:30 Temperature 98.1 F Pulse Rate 86 78 Respiratory 16 16 Rate Blood Pressure 145/89 148/72 O2 Sat by Pulse 99 98 Oximetry Medical Decision Making - Medical Decision Making Patient hit her right ankle on a bed frame tonight. X-ray of the ankle and knee performed in triage, reviewed by me showing no evidence of fractures. Radiologist read of ankle and knee negative for fractures or joint effusion. There is a small abrasion to the lateral malleolus with ecchymosis. Some soft t issue swelling. Patient does have good range of motion. Is able to bear weight. She was given an Juma wrap along with Tylenol and Motrin for discomfort. She was offered a tetanus shot and declined stating she is up-to-date. Directed to rest, ice, wear Juma wrap for compression, and elevate to keep swelling down. Tylenol and or Motrin as needed for any pain or discomfort. Follow-up with the primary care doctor as needed. Case discussed with Dr. Suarez. Disposition Clinical Impression: Right ankle injury Disposition: HOME SELF-CARE Condition: Good Instructions (If sedation given, give patient instructions): Foot Contusion (ED) Additional Instructions: Rest, ice, wear Juma wrap for compression, and elevate to keep swelling down. Tylenol and or Motrin as needed for any pain or discomfort. Follow-up with the primary care doctor as needed. Is patient prescribed a controlled substance at d/c from ED?: No Referrals: Clover Almeida MD [Primary Care Provider] - 1-2 days Time of Disposition: 01:12
[2021-12-09 01:34] VITALS: BP 148/72; PULSE 78
== END 2021-12-09 01:30 | disposition home or self-care (01) ==
LOC: EC 22:35
DX: S99.911A Unspecified injury of right ankle, initial encounter (principal); J45.909 Unspecified asthma, uncomplicated; K21.9 Gastro-esophageal reflux disease without esophagitis; I10 Essential (primary) hypertension; Z79.51 Long term (current) use of inhaled steroids; Z79.899 Other long term (current) drug therapy; Z88.6 Allergy status to analgesic agent; Z88.1 Allergy status to other antibiotic agents; Z88.9 Allergy status to unspecified drugs, medicaments and biological substances; Z91.040 Latex allergy status; Z91.048 Other nonmedicinal substance allergy status; Z91.041 Radiographic dye allergy status; Z88.0 Allergy status to penicillin; Z88.2 Allergy status to sulfonamides; Z88.8 Allergy status to other drugs, medicaments and biological substances; W06.XXXA Fall from bed, initial encounter
CPT/HCPCS: 99283

== ENCOUNTER 2022-01-13 22:48 | Emergency (ER) | payer OTHER ==
[2022-01-13 23:15] VITALS: TEMP 98.5
[2022-01-14] MEDS ORDERED: HYDROmorphone 0.5 MG/0.5 ML SYRINGE IVP STA (00:03)
[2022-01-14] MEDS ORDERED: KETOROLAC 15 MG/ML 1 ML VIAL IVP STA (00:05)
[2022-01-14 00:49] LABS: Basophils # (A) 0.1 k/uL (0-0.2); Basophils % (A) 1 %; Eosinophils # (A) 0.2 k/uL (0-0.7); Eosinophils % (A) 2 %; HCT 42.4 % (34.0-46.0); HGB 14.3 gm/dL (11.4-16.0); Lymphocytes # (A) 1.9 k/uL (1.0-4.8); Lymphocytes % (A) 16 %; MCH 29.2 pg (25.0-35.0); MCHC 33.8 g/dL (31.0-37.0); MCV 86.5 fL (80.0-100.0); Mean Platelet Volume 7.5; Monocytes # (A) 0.4 k/uL (0-1.0); Monocytes % (A) 3 %; Neutrophils % (A) 78 %; Platelet Count 323 k/uL (150-450); RDW 13.3 % (11.5-15.5); WBC 11.6 k/uL (3.8-10.6)
--- NOTE | 2022-01-14 01:06 | ED ---
Back Pain HPI - General Chief Complaint: Back Pain/Injury Stated Complaint: Back Pain Time Seen by Provider: 01/13/22 23:49 Source: patient, family, RN notes reviewed Limitations: no limitations - History of Present Illness Initial Comments: This is a 41-year-old female who presents to the emergency department for lower back pain. She had a lumbar fusion in [place], [place] earlier this year, and had been doing well until 1 to 2 days ago. States that the pain has become so severe that she is unable to sleep or function. She is taking [place] 10 mg without any relief. The spine surgeon ordered a CT scan, however it is not scheduled until later this month. The surgeon was concerned about a fluid buildup around the hardware or the body rejecting the hardware. She has no known recent injuries. Denies any loss of bowel or bladder control or saddle anesthesia. She denies any fevers or chills. Denies any fevers, chills, sore throat, cough, dyspnea, chest pain, palpitations, abdominal pain, nausea, vomiting, diarrhea, or headaches. MD Complaint: back pain Onset/Timin -: days(s) - Related Data Home Medications Medication Instructions Recorded Confirmed Verapamil HCl [Verapamil ER] 180 mg PO DAILY 01/12/20 08/26/21 Metoprolol Succinate [Toprol XL] 25 mg PO DAILY 06/02/21 08/26/21 Albuterol Inhaler [Ventolin Hfa 1 puff INHALATION DIRECTED PRN 08/26/21 08/26/21 Inhaler] Butalb/APAP/Caff 50-325-40Mg 1 tab PO DIRECTED PRN 08/26/21 08/26/21 [Fioricet 50-325-40] Rimegepant Sulfate [Nurtec Odt] 75 mg PO DIRECTED PRN 08/26/21 08/26/21 lamoTRIgine [lamoTRIgine ER] 100 mg PO DAILY 08/26/21 08/26/21 Previous Rx's Medication Instructions Recorded Lidocaine 5% Patch [Lidoderm 5% 1 patch TOPICAL DAILY PRN #30 patch 01/14/22 Patch] Orphenadrine [Norflex] 100 mg PO Q12H PRN #10 tab 01/14/22 predniSONE 50 mg PO DAILY 5 Days #5 tablet 01/14/22 Allergies Allergy/AdvReac Type Severity Reaction Status Date / Time aspirin Allergy Rash/Hives Verified 01/13/22 23:15 divalproex sodium Allergy Chest Verified 01/13/22 23:15 [From Depakote] Pain,agitated and violent gabapentin Allergy Chest Verified 01/13/22 23:15 Pain,agitated and voilent latex Allergy Rash/Hives Verified 01/13/22 23:15 lithium [[place]] Allergy Confusion Verified 01/13/22 23:15 Penicillins Allergy Anaphylaxis Verified 01/13/22 23:15 povidone-iodine Allergy Rash/Hives Verified 01/13/22 23:15 [From Betadine] soap [From Betadine] Allergy Rash/Hives Verified 01/13/22 23:15 Sulfa (Sulfonamide Allergy Rash/Hives Verified 01/13/22 23:15 Antibiotics) duloxetine [From Cymbalta] AdvReac Unknown violent Verified 01/13/22 23:15 Review of Systems ROS Statement: Those systems with pertinent positive or pertinent negative responses have been documented in the HPI. ROS Other: All systems not noted in ROS Statement are negative. Past Medical History Past Medical History: Asthma, Cancer, Chest Pain / Angina, GERD/Reflux, Hypertension Additional Past Medical History / Comment(s): left abdominal pain, ovarian cyst, hx melanoma, hernia- pt unsure where, migraines ,back pain. History of Any Multi-Drug Resistant Organisms: None Reported Past Surgical History: Adenoidectomy, Back Surgery, Orthopedic Surgery, Tonsill ectomy, Tubal Ligation, Uterine Ablation Additional Past Surgical History / Comment(s): labial cyst removal, carpal tunnel bilat, Back surg with maricruz & cage. , arthroscopy right knee Past Anesthesia/Blood Transfusion Reactions: No Reported Reaction, Motion Sickness Past Psychological History: Anxiety, Bipolar, Depression, PTSD, Schizophrenia Smoking Status: Former smoker Past Alcohol Use History: None Reported Past Drug Use History: None Reported - Past Family History Mother Family Medical History: Cancer Additional Family Medical History / Comment(s): breast cancer Father Additional Family Medical History / Comment(s): w/aneurysm General Exam Limitations: no limitations General appearance: alert, in distress Head exam: Present: atraumatic, normocephalic, normal inspection Respiratory exam: Present: normal lung sounds bilaterally. Absent: respiratory distress, wheezes, rales, rhonchi, stridor Cardiovascular Exam: Present: regular rate, normal rhythm, normal heart sounds. Absent: systolic murmur, diastolic murmur, rubs, gallop, clicks Back exam: Present: normal inspection, tenderness (over the lumbar spine). Absent: full ROM Neurological exam: Present: alert, oriented X3, CN II-XII intact Psychiatric exam: Present: normal affect, normal mood Skin exam: Present: warm, dry, intact, normal color. Absent: rash Course Vital Signs 01/13/22 01/14/22 23:09 03:37 Temperature 98.5 F Pulse Rate 92 78 Respiratory 20 15 Rate Blood Pressure 153/81 138/77 O2 Sat by Pulse 100 100 Oximetry Medical Decision Making - Medical Decision Making This is a 41-year-old female who presents to the emergency department for lower back pain. Baseline lab work obtained revealing minor leukocytosis and negative inflammatory markers. Computed tomography scan of the lumbar spine obtained. My interpretation reveals no acute fractures or dislocations. The radiologist notes minor subluxation at the L4-L5 fusion. Findings discussed with the patient. Her pain was managed in the emergency department. Given that she is already on [place], we will not discharge her on any form of narcotics. Prescription for lidocaine patches, prednisone, and Norflex provided with dosing instructions reviewed. I did advise that Norflex can be sedating and she should avoid driving or operating machinery when taking this. Advised that taking this with [place] can further exacerbate the drowsiness effects and she should avoid taking them together. Instructed her to contact her spine surgeon to discuss how to proceed. She was given a CD of the computed tomography scan as well as the radiologist's report. Return precautions reviewed in depth, the patient is instructed to return to the emergency department with any new, worsening, or concerning symptoms, especially if she develops loss of bowel/bladder control or saddle anesthesia. Patient verbalized understanding. This case was discussed in detail with the attending ED physician. Presentation, findings, and treatment plan discussed in detail as well. - Lab Data Result diagrams: 01/14/22 00:27 Lab Results 01/14/22 Range/Units 00:27 WBC 11.6 H (3.8-10.6) k/uL RBC 4.90 (3.80-5.40) m/uL Hgb 14.3 (11.4-16.0) gm/dL Hct 42.4 (34.0-46.0) % MCV 86.5 (80.0-100.0) fL MCH 29.2 (25.0-35.0) pg MCHC 33.8 (31.0-37.0) g/dL RDW 13.3 (11.5-15.5) % Plt Count 323 (150-450) k/uL MPV 7.5 Neutrophils % 78 % Lymphocytes % 16 % Monocytes % 3 % Eosinophils % 2 % Basophils % 1 % Neutrophils # 9.0 H (1.3-7.7) k/uL Lymphocytes # 1.9 (1.0-4.8) k/uL Monocytes # 0.4 (0-1.0) k/uL Eosinophils # 0.2 (0-0.7) k/uL Basophils # 0.1 (0-0.2) k/uL ESR 8 (0-20) mm/hr - Radiology Data Radiology results: report reviewed, image reviewed Disposition Clinical Impression: Subluxation of lumbar vertebra, Lower back pain Disposition: HOME SELF-CARE Instructions (If sedation given, give patient instructions): Acute Low Back Pain (ED) Additional Instructions: Return to the emergency department with any new, worsening, or concerning symptoms, especially if you develop loss of bowel/bladder control. Take the prednisone daily for 5 days. The lidocaine patches can be used daily as well. The Norflex can be taken twice daily, however be aware that this can be sedating and you should avoid driving or operating machinery when taking this. Follow up with your spine surgeon. Prescriptions: Lidocaine 5% Patch [Lidoderm 5% Patch] 1 patch TOPICAL DAILY PRN #30 patch PRN Reason: Pain Orphenadrine [Norflex] 100 mg PO Q12H PRN #10 tab PRN Reason: Pain predniSONE 50 mg PO DAILY 5 Days #5 tablet Is patient prescribed a controlled substance at d/c from ED?: No Referrals: Clover Almeida MD [Primary Care Provider] - 1-2 days
--- NOTE | 2022-01-14 01:12 | CT ---
EXAMINATION TYPE: CT lumbar spine wo con DATE OF EXAM: 01/14/2022 COMPARISON: 06/11/2021 HISTORY: Back pain. Spinal fusion. CT DLP: mGycm Automated exposure control for dose reduction was used. The lumbar vertebra have fairly normal alignment. There is a few millimeter anterior subluxation of L 4 in relation L5. There are rods and screws fusing posteriorly the lumbar spine at L4-5. No compressi on fracture. There is disc prosthesis at L4-5. There is no lumbar paraspinal mass. Sacroiliac joints are intact. Visualized sacrum is intact. Exam limited by metal artifact. IMPRESSION: There is posterior fusion surgery. Minimal L4-5 subluxation. No change compared to old exam. No compl icating process seen.
[2022-01-14 01:35] LABS: Erythrocyte Sedimentation Rate 8 mm/hr (0-20)
[2022-01-14] MEDS ORDERED: HYDROmorphone 1 MG/ML 1 ML SYRINGE IVP STA (01:51)
[2022-01-14] MEDS ORDERED: ORPHENADRINE 30 MG/ML 2 ML VIAL IVP STA (01:51)
[2022-01-14] MEDS ORDERED: LIDOCAINE 5% PATCH TOPICAL ONE (01:51)
[2022-01-14 03:38] VITALS: BP 138/77; PULSE 78; RESP 15
== END 2022-01-14 03:46 | disposition home or self-care (01) ==
LOC: EC 22:48
DX: M43.5X6 Other recurrent vertebral dislocation, lumbar region (principal); J45.909 Unspecified asthma, uncomplicated; I10 Essential (primary) hypertension; G43.909 Migraine, unspecified, not intractable, without status migrainosus; Z91.040 Latex allergy status; Z88.0 Allergy status to penicillin; Z88.2 Allergy status to sulfonamides; Z88.1 Allergy status to other antibiotic agents; Z88.8 Allergy status to other drugs, medicaments and biological substances; Z87.891 Personal history of nicotine dependence; Z91.048 Other nonmedicinal substance allergy status; Z79.899 Other long term (current) drug therapy; Z79.1 Long term (current) use of non-steroidal anti-inflammatories (NSAID); Z98.51 Tubal ligation status; Z79.82 Long term (current) use of aspirin
CPT/HCPCS: 96374; 96375; 96376; 36415; 85652; 85025; 72131; 99284; J2360; J1170 ×2; J1885; 99285

== ENCOUNTER 2022-04-24 17:15 | Emergency (ER) | payer OTHER ==
[2022-04-24 18:53] VITALS: TEMP 98
[2022-04-24] MEDS ORDERED: SODIUM CHLORIDE 0.9% 1,000 ML IV ONE (19:09)
[2022-04-24] MEDS ORDERED: MAGNESIUM SULFATE-D5W PMX 1 GM in DEXTROSE/WATER 1 100ML.BAG IVPB ONE (19:10)
[2022-04-24] MEDS ORDERED: METOCLOPRAMIDE 5 MG/ML 2 ML VIAL IVP STA (19:10)
[2022-04-24] MEDS ORDERED: DEXAMETHASONE SOD PHOSPHATE 10 MG/ML 1 ML VIAL IVP STA (19:11)
--- NOTE | 2022-04-24 19:18 | ED ---
General Adult HPI - General Chief complaint: Headache Stated complaint: Migraine Time Seen by Provider: 04/24/22 18:30 Source: patient, RN notes reviewed, old records reviewed Mode of arrival: ambulatory Limitations: no limitations - History of Present Illness Initial comments: This is a 41-year-old female who has a past medical history significant for migraine headaches. Patient states she's been having since she's tangential. Patient states this was started last night at 11:00 and hasn't let up. Patient states she takes her normal migraine medicine at home and it didn't help her patient states she's extremely nauseated has been vomiting. Patient states is nothing different about this headache than any other previous headache. Patient denies any numbness weakness per patient denies any slurred speech or visual disturbance. Patient denies any recent fever chills or cough per patient denies any other problems at this time. - Related Data Home Medications Medication Instructions Recorded Confirmed Verapamil HCl [Verapamil ER] 180 mg PO DAILY 01/12/20 08/26/21 Metoprolol Succinate [Toprol XL] 25 mg PO DAILY 06/02/21 08/26/21 Albuterol Inhaler [Ventolin Hfa 1 puff INHALATION DIRECTED PRN 08/26/21 08/26/21 Inhaler] Butalb/APAP/Caff 50-325-40Mg 1 tab PO DIRECTED PRN 08/26/21 08/26/21 [Fioricet 50-325-40] Rimegepant Sulfate [Nurtec Odt] 75 mg PO DIRECTED PRN 08/26/21 08/26/21 lamoTRIgine [lamoTRIgine ER] 100 mg PO DAILY 08/26/21 08/26/21 Previous Rx's Medication Instructions Recorded Lidocaine 5% Patch [Lidoderm 5% 1 patch TOPICAL DAILY PRN #30 patch 01/14/22 Patch] Orphenadrine [Norflex] 100 mg PO Q12H PRN #10 tab 01/14/22 predniSONE 50 mg PO DAILY 5 Days #5 tablet 01/14/22 Allergies Allergy/AdvReac Type Severity Reaction Status Date / Time aspirin Allergy Rash/Hives Verified 04/24/22 17:28 divalproex sodium Allergy Chest Verified 04/24/22 17:28 [From Depakote] Pain,agitated and violent gabapentin Allergy Chest Verified 04/24/22 17:28 Pain,agitated and voilent latex Allergy Rash/Hives Verified 04/24/22 17:28 lithium [[place]] Allergy Confusion Verified 04/24/22 17:28 Penicillins Allergy Anaphylaxis Verified 04/24/22 17:28 povidone-iodine Allergy Rash/Hives Verified 04/24/22 17:28 [From Betadine] soap [From Betadine] Allergy Rash/Hives Verified 04/24/22 17:28 Sulfa (Sulfonamide Allergy Rash/Hives Verified 04/24/22 17:28 Antibiotics) duloxetine [From Cymbalta] AdvReac Unknown violent Verified 04/24/22 17:28 Review of Systems ROS Statement: Those systems with pertinent positive or pertinent negative responses have been documented in the HPI. ROS Other: All systems not noted in ROS Statement are negative. Past Medical History Past Medical History: Asthma, Cancer, Chest Pain / Angina, GERD/Reflux, Hypertension Additional Past Medical History / Comment(s): left abdominal pain, ovarian cyst, hx melanoma, hernia- pt unsure where, migraines ,back pain. History of Any Multi-Drug Resistant Organisms: None Reported Past Surgical History: Adenoidectomy, Back Surgery, Orthopedic Surgery, Tonsillectomy, Tubal Ligation, Uterine Ablation Additional Past Surgical History / Comment(s): labial cyst removal, carpal tunnel bilat, Back surg with maricruz & cage. , arthroscopy right knee Past Anesthesia/Blood Transfusion Reactions: No Reported Reaction, Motion Sickness Past Psychological History: Anxiety, Bipolar, Depression, PTSD, Schizophrenia Smoking Status: Former smoker Past Alcohol Use History: None Reported Past Drug Use History: None Reported - Past Family History Mother Family Medical History: Cancer Additional Family Medical History / Comment(s): breast cancer Father Additional Family Medical History / Comment(s): w/aneurysm General Exam - General Exam Comments Initial Comments: GENERAL: Patient is well-developed and well-nourished. Patient is nontoxic and well- hydrated and is in moderate distress. ENT: Neck is soft and supple. No significant lymphadenopathy is noted. Oropharynx is clear. Moist mucous membranes. Neck has full range of motion without eliciting any pain. EYES: The sclera were anicteric and conjunctiva were pink and moist. Extraocular movements were intact and pupils were equal round and reactive to light. Eyelids were unremarkable. PULMONARY: Unlabored respirations. Good breath sounds bilaterally. No audible rales rhonchi or wheezing was noted. CARDIOVASCULAR: There is a regular rate and rhythm without any murmurs gallops or rubs. ABDOMEN: Soft and nontender with normal bowel sounds. SKIN: Skin is clear with no lesions or rashes and otherwise unremarkable. NEUROLOGIC: Patient is alert and oriented x3. Cranial nerves II through XII are grossly intact. Motor and sensory are also intact. Normal speech, volume and content. Symmetrical smile. MUSCULOSKELETAL: Normal extremities with adequate strength and full range of motion. LYMPHATICS: No significant lymphadenopathy is noted PSYCHIATRIC: Normal psychiatric evaluation. Limitations: no limitations Course Vital Signs 04/24/22 04/24/22 04/24/22 17:26 18:53 19:59 Temperature 98.4 F 98.0 F Pulse Rate 86 87 89 Respiratory 18 18 17 Rate Blood Pressure 141/79 158/108 139/92 O2 Sat by Pulse 97 100 98 Oximetry Medical Decision Making - Medical Decision Making EKG was interpreted by myself shows a sinus rhythm at 81 bpm OK interval 160 QRS is 92 QT interval 412 QTC is 439. Patient's EKG shows no ST segment rotation or depression. Was pt. sent in by a medical professional or institution (, PA, RESIDENTIAL CONSTRUCTION INSTRUCTOR, urgent care, hospital, or [facility]...) When possible be specific @ -No Did you speak to anyone other than the patient for history (EMS, parent, family, police, friend...)? What history was obtained from this source @ -No Did you review nursing and triage notes (agree or disagree)? Why? @ -I reviewed and agree with nursing and triage notes Were old charts reviewed (outside hosp., previous admission, EMS record, old EKG, old radiological studies, urgent care reports/EKG's, [facility] records)? Report findings @ -No old charts were reviewed Differential Diagnosis (chest pain, altered mental status, abdominal pain women, abdominal pain men, vaginal bleeding, weakness, fever, dyspnea, syncope, headache, dizziness, GI bleed, back pain, seizure, CVA, palpatations, mental health, musculoskeletal)? @ -Differential Headache: Migraine, tension, cluster, carbon monoxide, central venous thrombosis, pension karma temporal arteritis, acute closure glaucoma, intercranial hemorrhage, mastoiditis, sinusitis, head injury, this is not meant to be an all-inclusive list. EKG interpreted by me (3pts min.). @ -As above X-rays interpreted by me (1pt min.). @ -None done CT interpreted by me (1pt min.). @ -None done U/S interpreted by me (1pt. min.). @ -None done What testing was considered but not performed or refused? (CT, X-rays, U/S, labs)? Why? @ -None What meds were considered but not given or refused? Why? @ -None Did you discuss the management of the patient with other professionals (professionals i.e. DrGinny, PA, RESIDENTIAL CONSTRUCTION INSTRUCTOR, lab, RT, psych nurse, child protective services social worker, hall coordinator, teacher, contracts officer, transplant case manager)? Give summary @ -No Was smoking cessation discussed for >3mins.? @ -No Was critical care preformed (if so, how long)? @ -No Were there social determinants of health that impacted care today? How? (Homelessness, low income, unemployed, alcoholism, drug addiction, transportation, low edu. Level, literacy, decrease access to med. care, half-way, rehab)? @ -No Was there de-escalation of care discussed even if they declined (Discuss DNR or withdrawal of care, Hospice)? DNR status @ -No What co-morbidities impacted this encounter? (DM, HTN, Smoking, COPD, CAD, Cancer, CVA, ARF, Chemo, Hep., AIDS, mental health diagnosis, sleep apnea, morbid obesity)? @ -None Was patient admitted / discharged? Hospital course, mention meds given and route, prescriptions, significant lab abnormalities, going to OR and other pertinent info. @ -She received Reglan and Decadron and magnesium initially. Patient also received a liter of normal saline. Patient then received droperidol and I went back in and evaluated the patient she stated that her headache was gone she felt somewhat better and she thanked me multiple times. Undiagnosed new problem with uncertain prognosis? @ -No Drug Therapy requiring intensive monitoring for toxicity (Heparin, Nitro, Insulin, Cardizem)? @ -No Were any procedures done? @ -No Diagnosis/symptom? @ -Migraine headache Acute, or Chronic, or Acute on Chronic? @ -Acute Uncomplicated (without systemic symptoms) or Complicated (systemic symptoms)? @ -Uncomplicated Side effects of treatment? @ -No Exacerbation, Progression, or Severe Exacerbation? @ -No Poses a threat to life or bodily function? How? (Chest pain, [place], [place], pneumonia, PE, COPD, DKA, ARF, appy, cholecystitis, CVA, Diverticulitis, Homicidal, Suicidal, threat to staff... and all critical care pts) @ -No Disposition Clinical Impression: Migraine headache Disposition: HOME SELF-CARE Condition: Good Instructions (If sedation given, give patient instructions): Migraine Headache (ED) Is patient prescribed a controlled substance at d/c from ED?: No Referrals: Clover Almeida MD [Primary Care Provider] - 1-2 days Time of Disposition: 20:31
[2022-04-24 20:00] VITALS: BP 139/92; PULSE 89; RESP 17
== END 2022-04-24 20:39 | disposition home or self-care (01) ==
LOC: EC 17:15
DX: G43.909 Migraine, unspecified, not intractable, without status migrainosus (principal); I10 Essential (primary) hypertension; J45.909 Unspecified asthma, uncomplicated; Z79.899 Other long term (current) drug therapy; Z88.0 Allergy status to penicillin; Z88.1 Allergy status to other antibiotic agents; Z88.2 Allergy status to sulfonamides; Z88.8 Allergy status to other drugs, medicaments and biological substances; Z91.040 Latex allergy status; Z87.891 Personal history of nicotine dependence
CPT/HCPCS: 93005; 99283; 96365; 96375 ×3; J1100; J2765; J3475; J1790

== ENCOUNTER 2022-05-31 20:35 | Emergency (ER) | payer OTHER ==
[2022-05-31 21:15] VITALS: BP 141/87; PULSE 84; RESP 18; TEMP 98
[2022-05-31] MEDS ORDERED: KETOROLAC 15 MG/ML 1 ML VIAL IM STA (21:30)
[2022-05-31] MEDS ORDERED: LIDOCAINE 5% PATCH TOPICAL STA (21:31)
--- NOTE | 2022-05-31 22:33 | ED ---
Extremity Problem HPI - General Chief complaint: Extremity Problem,Nontraumatic Stated complaint: Pain in right thigh Time Seen by Provider: 05/31/22 21:19 Source: patient, family Mode of arrival: ambulatory Limitations: physical limitation - History of Present Illness Initial comments: Patient is a 42-year-old female who presents to the emergency department for right thigh pain. Patient states she went to [facility] to have a steroid injection in her SI joint ordered by her neurologist. Patient states the injection was placed into the muscle of her right thigh instead of the hip. States since the injection she has been having pain in the thigh. She denies calf pain. No numbness and tingling. No issues with range of motion. - Related Data Home Medications Medication Instructions Recorded Confirmed Verapamil HCl [Verapamil ER] 180 mg PO DAILY 01/12/20 08/26/21 Metoprolol Succinate [Toprol XL] 25 mg PO DAILY 06/02/21 08/26/21 Albuterol Inhaler [Ventolin Hfa 1 puff INHALATION DIRECTED PRN 08/26/21 08/26/21 Inhaler] Butalb/APAP/Caff 50-325-40Mg 1 tab PO DIRECTED PRN 08/26/21 08/26/21 [Fioricet 50-325-40] Rimegepant Sulfate [Nurtec Odt] 75 mg PO DIRECTED PRN 08/26/21 08/26/21 lamoTRIgine [lamoTRIgine ER] 100 mg PO DAILY 08/26/21 08/26/21 Previous Rx's Medication Instructions Recorded Lidocaine 5% Patch [Lidoderm 5% 1 patch TOPICAL DAILY PRN #30 patch 01/14/22 Patch] Orphenadrine [Norflex] 100 mg PO Q12H PRN #10 tab 01/14/22 predniSONE 50 mg PO DAILY 5 Days #5 tablet 01/14/22 Ibuprofen [Motrin] 800 mg PO Q8HR PRN #30 tab 05/31/22 Lidocaine 5% Patch [Lidoderm 5% 1 patch TOPICAL DAILY PRN #7 patch 05/31/22 Patch] Allergies Allergy/AdvReac Type Severity Reaction Status Date / Time aspirin Allergy Rash/Hives Verified 04/24/22 17:28 divalproex sodium Allergy Chest Verified 04/24/22 17:28 [From Depakote] Pain,agitated and violent gabapentin Allergy Chest Verified 04/24/22 17:28 Pain,agitated and voilent latex Allergy Rash/Hives Verified 04/24/22 17:28 lithium [[place]] Allergy Confusion Verified 04/24/22 17:28 Penicillins Allergy Anaphylaxis Verified 04/24/22 17:28 povidone-iodine Allergy Rash/Hives Verified 04/24/22 17:28 [From Betadine] soap [From Betadine] Allergy Rash/Hives Verified 04/24/22 17:28 Sulfa (Sulfonamide Allergy Rash/Hives Verified 04/24/22 17:28 Antibiotics) duloxetine [From Cymbalta] AdvReac Unknown violent Verified 04/24/22 17:28 Review of Systems ROS Statement: Those systems with pertinent positive or pertinent negative responses have been documented in the HPI. ROS Other: All systems not noted in ROS Statement are negative. Past Medical History Past Medical History: Asthma, Cancer, Chest Pain / Angina, GERD/Reflux, Hypertension Additional Past Medical History / Comment(s): left abdominal pain, ovarian cyst, hx melanoma, hernia- pt unsure where, migraines ,back pain. History of Any Multi-Drug Resistant Organisms: None Reported Past Surgical History: Adenoidectomy, Back Surgery, Orthopedic Surgery, Tonsillectomy, Tubal Ligation, Uterine Ablation Additional Past Surgical History / Comment(s): labial cyst removal, carpal tunnel bilat, Back surg with maricruz & cage. , arthroscopy right knee Past Anesthesia/Blood Transfusion Reactions: No Reported Reaction, Motion Sickness Past Psychological History: Anxiety, Bipolar, Depression, PTSD, Schizophrenia Smoking Status: Former smoker Past Alcohol Use History: None Reported Past Drug Use History: None Reported - Past Family History Mother Family Medical History: Cancer Additional Family Medical History / Comment(s): breast cancer Father Additional Family Medical History / Comment(s): w/aneurysm General Exam Limitations: physical limitation General appearance: alert, in no apparent distress Head exam: Present: atraumatic, normocephalic, normal inspection Eye exam: Present: normal appearance Respiratory exam: Present: normal lung sounds bilaterally. Absent: respiratory distress, wheezes, rales, rhonchi, stridor Cardiovascular Exam: Present: regular rate, normal rhythm, normal heart sounds. Absent: systolic murmur, diastolic murmur, rubs, gallop, clicks Extremities exam: Present: other (small puncture in right mid lateral thigh where needle was placed. No erythema, swelling, ecchymosis, nodule. Minimal tenderness. Neurovascularly intact. Full ROM) Neurological exam: Present: alert, oriented X3, CN II-XII intact Psychiatric exam: Present: normal affect, normal mood Skin exam: Present: warm, dry, intact, normal color. Absent: rash Course Vital Signs 05/31/22 21:09 Temperature 98.0 F Pulse Rate 84 Respiratory 18 Rate Blood Pressure 141/87 O2 Sat by Pulse 97 Oximetry Medical Decision Making - Medical Decision Making Was pt. sent in by a medical professional or institution (, PA, CANINE SERVICE TEACHER, urgent care, hospital, or prison...) When possible be specific @ -[No] Did you speak to anyone other than the patient for history (EMS, parent, family, police, friend...)? What history was obtained from this source @ -[No] Did you review nursing and triage notes (agree or disagree)? Why? @ -[I reviewed and agree with nursing and triage notes] Were old charts reviewed (outside hosp., previous admission, EMS record, old EKG, old radiological studies, urgent care reports/EKG's, prison records)? Report findings @ -[No old charts were reviewed] Differential Diagnosis (chest pain, altered mental status, abdominal pain women, abdominal pain men, vaginal bleeding, weakness, fever, dyspnea, syncope, headache, dizziness, GI bleed, back pain, seizure, CVA, palpatations, mental health)? @ -Medication reaction, superficial thrombophlebitis, soft tissue injury, cellulitis, abscess. This list is not meant to be all-inclusive. EKG interpreted by me (3pts min.). @ -[As above] X-rays interpreted by me (1pt min.). @ -[None done] CT interpreted by me (1pt min.). @ -[None done] U/S interpreted by me (1pt. min.). @ -[None done] What testing was considered but not performed or refused? (CT, X-rays, U/S, labs)? Why? @ -[None] What meds were considered but not given or refused? Why? @ -[None] Did you discuss the management of the patient with other professionals (professionals i.e. , PA, CANINE SERVICE TEACHER, lab, RT, psych nurse, social service agency director, intellectual property lawyer, teacher, gift officer, watch case polisher)? Give summary @ -[No] Was smoking cessation discussed for >3mins.? @ -[No] Was critical care preformed (if so, how long)? @ -[No] Were there social determinants of health that impacted care today? How? (Homelessness, low income, unemployed, alcoholism, drug addiction, transportation, low edu. Level, literacy, decrease access to med. care, penitentiary, rehab)? @ -[No] Was there de-escalation of care discussed even if they declined (Discuss DNR or withdrawal of care, Hospice)? DNR status @ -[No] What co-morbidities impacted this encounter? (DM, HTN, Smoking, COPD, CAD, Cancer, CVA, ARF, Chemo, Hep., AIDS, mental health diagnosis, sleep apnea, morbid obesity)? @ -[None] Was patient admitted / discharged? Hospital course, mention meds given and route, prescriptions, significant lab abnormalities, going to OR and other pertinent info. @ -Patient presented with pain in right thigh after IM steroid injection today. Physical exam unremarkable. Patient given pain medication with improvement. She will be discharged with pain management and follow up with PCP. Undiagnosed new problem with uncertain prognosis? @ -[No] Drug Therapy requiring intensive monitoring for toxicity (Heparin, Nitro, Insulin, Cardizem)? @ -[No] Were any procedures done? @ -[No] Diagnosis/symptom? @ -right thigh pain Acute, or Chronic, or Acute on Chronic? @ -acute Uncomplicated (without systemic symptoms) or Complicated (systemic symptoms)? @ -uncomplicated Side effects of treatment? @ -[No] Exacerbation, Progression, or Severe Exacerbation? @ -[No] Poses a threat to life or bodily function? How? (Chest pain, [place], [place], pneumonia, PE, COPD, DKA, ARF, appy, cholecystitis, CVA, Diverticulitis, Homicidal, [place] icidal, threat to staff... and all critical care pts) @ -[No] Dr. Hernandes is my attending Disposition Clinical Impression: Right thigh pain Disposition: HOME SELF-CARE Condition: Good Instructions (If sedation given, give patient instructions): P.R.I.C.E. Treatment (ED) Additional Instructions: Take medication as directed. Ice and elevate injury. Return to the emergency department if you experience new, concerning, or worsening symptoms. Prescriptions: Lidocaine 5% Patch [Lidoderm 5% Patch] 1 patch TOPICAL DAILY PRN #7 patch PRN Reason: Pain Ibuprofen [Motrin] 800 mg PO Q8HR PRN #30 tab PRN Reason: Pain Is patient prescribed a controlled substance at d/c from ED?: No Referrals: Clover Almeida MD [Primary Care Provider] - 1-2 days
== END 2022-05-31 22:41 | disposition home or self-care (01) ==
LOC: EC 20:35
DX: M79.651 Pain in right thigh (principal); I10 Essential (primary) hypertension; J45.909 Unspecified asthma, uncomplicated; F41.9 Anxiety disorder, unspecified; F31.9 Bipolar disorder, unspecified; Z79.899 Other long term (current) drug therapy; Z87.891 Personal history of nicotine dependence; Z88.3 Allergy status to other anti-infective agents; Z88.0 Allergy status to penicillin; Z88.8 Allergy status to other drugs, medicaments and biological substances
CPT/HCPCS: 99283; 96372; J1885

== ENCOUNTER 2022-06-17 11:16 | Emergency (ER) | payer OTHER ==
[2022-06-17 11:30] VITALS: TEMP 97.3
[2022-06-17] MEDS ORDERED: diphenhydrAMINE 50 MG/ML 1 ML VIAL IVP STA (11:39)
[2022-06-17] MEDS ORDERED: KETOROLAC 15 MG/ML 1 ML VIAL IVP STA (11:39)
[2022-06-17] MEDS ORDERED: METOCLOPRAMIDE 5 MG/ML 2 ML VIAL IVP STA (11:39)
[2022-06-17] MEDS ORDERED: SODIUM CHLORIDE 0.9% 1,000 ML IV STA (11:39)
[2022-06-17] MEDS ORDERED: DEXAMETHASONE SOD PHOSPHATE 10 MG/ML 1 ML VIAL IVP STA (11:39)
--- NOTE | 2022-06-17 12:10 | ED ---
Headache HPI - General Chief Complaint: Headache Stated Complaint: headache Time Seen by Provider: 06/17/22 11:33 Mode of arrival: ambulatory Limitations: no limitations - History of Present Illness Initial Comments: Patient is a 42-year-old female presenting with chief complaint of migraine headache. Patient has history of migraines. Located primarily on the left side of head. No recent head injury or trauma. Admits to nausea with no vomiting. Admits to some vision blurring. Patient tried fiorcet and verapamil at home. Headache has been ongoing for 5 days. No fever, chills, URI-like symptoms, chest pain, difficulty breathing, numbness, tingling, weakness. - Related Data Home Medications Medication Instructions Recorded Confirmed Verapamil HCl [Verapamil ER] 180 mg PO DAILY 01/12/20 08/26/21 Metoprolol Succinate [Toprol XL] 25 mg PO DAILY 06/02/21 08/26/21 Albuterol Inhaler [Ventolin Hfa 1 puff INHALATION DIRECTED PRN 08/26/21 08/26/21 Inhaler] Butalb/APAP/Caff 50-325-40Mg 1 tab PO DIRECTED PRN 08/26/21 08/26/21 [Fioricet 50-325-40] Rimegepant Sulfate [Nurtec Odt] 75 mg PO DIRECTED PRN 08/26/21 08/26/21 lamoTRIgine [lamoTRIgine ER] 100 mg PO DAILY 08/26/21 08/26/21 Previous Rx's Medication Instructions Recorded Lidocaine 5% Patch [Lidoderm 5% 1 patch TOPICAL DAILY PRN #30 patch 01/14/22 Patch] Orphenadrine [Norflex] 100 mg PO Q12H PRN #10 tab 01/14/22 predniSONE 50 mg PO DAILY 5 Days #5 tablet 01/14/22 Ibuprofen [Motrin] 800 mg PO Q8HR PRN #30 tab 05/31/22 Lidocaine 5% Patch [Lidoderm 5% 1 patch TOPICAL DAILY PRN #7 patch 05/31/22 Patch] Allergies Allergy/AdvReac Type Severity Reaction Status Date / Time aspirin Allergy Rash/Hives Verified 06/17/22 11:30 divalproex sodium Allergy Chest Verified 06/17/22 11:30 [From Depakote] Pain,agitated and violent gabapentin Allergy Chest Verified 06/17/22 11:30 Pain,agitated and voilent latex Allergy Rash/Hives Verified 06/17/22 11:30 lithium [[place]] Allergy Confusion Verified 06/17/22 11:30 Penicillins Allergy Anaphylaxis Verified 06/17/22 11:30 povidone-iodine Allergy Rash/Hives Verified 06/17/22 11:30 [From Betadine] soap [From Betadine] Allergy Rash/Hives Verified 06/17/22 11:30 Sulfa (Sulfonamide Allergy Rash/Hives Verified 06/17/22 11:30 Antibiotics) duloxetine [From Cymbalta] AdvReac Unknown violent Verified 06/17/22 11:30 Review of Systems ROS Statement: Those systems with pertinent positive or pertinent negative responses have been documented in the HPI. ROS Other: All systems not noted in ROS Statement are negative. Past Medical History Past Medical History: Asthma, Cancer, Chest Pain / Angina, GERD/Reflux, Hypertension Additional Past Medical History / Comment(s): left abdominal pain, ovarian cyst, hx melanoma, hernia- pt unsure where, migraines ,back pain. History of Any Multi-Drug Resistant Organisms: None Reported Past Surgical History: Adenoidectomy, Back Surgery, Orthopedic Surgery, Tonsillectomy, Tubal Ligation, Uterine Ablation Additional Past Surgical History / Comment(s): labial cyst removal, carpal tunnel bilat, Back surg with maricruz & cage. , arthroscopy right knee Past Anesthesia/Blood Transfusion Reactions: No Reported Reaction, Motion Sickness Past Psychological History: Anxiety, Bipolar, Depression, PTSD, Schizophrenia Smoking Status: Former smoker Past Alcohol Use History: None Reported Past Drug Use History: None Reported - Past Family History Mother Family Medical History: Cancer Additional Family Medical History / Comment(s): breast cancer Father Additional Family Medical History / Comment(s): w/aneurysm General Exam Limitations: no limitations General appearance: alert, in no apparent distress Head exam: Present: atraumatic, normocephalic, normal inspection Eye exam: Present: normal appearance, PERRL, EOMI. Absent: scleral icterus, conjunctival injection, periorbital swelling Neck exam: Present: normal inspection, full ROM Respiratory exam: Present: normal lung sounds bilaterally. Absent: respiratory distress, wheezes, rales, rhonchi, stridor Cardiovascular Exam: Present: regular rate, normal rhythm, normal heart sounds. Absent: systolic murmur, diastolic murmur, rubs, gallop, clicks Neurological exam: Present: alert, oriented X3, CN II-XII intact Expanded Patient oriented to: Present: person, place, time Speech: Present: fluid speech Cranial nerves: EOM's Intact: Normal Sensory exam: Upper Extremity Light Touch: Normal, Lower Extremity Light Touch: Normal Motor strength exam: RUE: 5, LUE: 5, RLE: 5, LLE: 5 Eye Response: (4) open spontaneously Motor Response: (6) obeys commands Verbal Response: (5) oriented [place] Total: 15 Psychiatric exam: Present: normal affect, normal mood Skin exam: Present: warm, dry, intact, normal color. Absent: rash Course Vital Signs 06/17/22 06/17/22 06/17/22 11:27 11:41 12:00 Temperature 97.3 F L Pulse Rate 74 77 Respiratory 18 18 18 Rate Blood Pressure 135/84 133/85 133/85 O2 Sat by Pulse 99 99 99 Oximetry 06/17/22 13:07 Temperature Pulse Rate 86 Respiratory 16 Rate Blood Pressure 117/68 O2 Sat by Pulse 98 Oximetry Medical Decision Making - Medical Decision Making Was pt. sent in by a medical professional or institution (, PA, LAMINATION SPINNER, urgent care, hospital, or fpc...) When possible be specific @ -No Did you speak to anyone other than the patient for history (EMS, parent, family, police, friend...)? What history was obtained from this source @ -No Did you review nursing and triage notes (agree or disagree)? Why? @ -I reviewed and agree with nursing and triage notes Were old charts reviewed (outside hosp., previous admission, EMS record, old EKG, old radiological studies, urgent care reports/EKG's, fpc records)? Report findings @ -No old charts were reviewed Differential Diagnosis (chest pain, altered mental status, abdominal pain women, abdominal pain men, vaginal bleeding, weakness, fever, dyspnea, syncope, headache, dizziness, GI bleed, back pain, seizure, CVA, palpatations, mental health, musculoskeletal)? @ -MDM Differential Headache: Migraine, tension, cluster, carbon monoxide, central venous thrombosis, pension [employer]arma temporal arteritis, acute closure glaucoma, intercranial hemorrhage, mastoiditis, sinusitis, head injury this is not meant to be an all-inclusive list. EKG interpreted by me (3pts min.). @ -As above X-rays interpreted by me (1pt min.). @ -None done CT interpreted by me (1pt min.). @ -None done U/S interpreted by me (1pt. min.). @ -None done What testing was considered but not performed or refused? (CT, X-rays, U/S, labs)? Why? @ -None What meds were considered but not given or refused? Why? @ -None Did you discuss the management of the patient with other professionals (professionals i.e. , PA, LAMINATION SPINNER, lab, RT, psych nurse, social service coordinator, patient financial services coordinator, teacher, customer service security officer, catalytic case operator)? Give summary @ -No Was smoking cessation discussed for >3mins.? @ -No Was critical care preformed (if so, how long)? @ -No Were there social determinants of health that impacted care today? How? (Homelessness, low income, unemployed, alcoholism, drug addiction, transportation, low edu. Level, literacy, decrease access to med. care, fdc, rehab)? @ -No Was there de-escalation of care discussed even if they declined (Discuss DNR or withdrawal of care, Hospice)? DNR status @ -No What co-morbidities impacted this encounter? (DM, HTN, Smoking, COPD, CAD, Cancer, CVA, ARF, Chemo, Hep., AIDS, mental health diagnosis, sleep apnea, morbid obesity)? @ -None Was patient admitted / discharged? Hospital course, mention meds given and route, prescriptions, significant lab abnormalities, going to OR and other pertinent info. @ -Patient is a 42-year-old female presenting with chief complaint of migraine. Patient has history of migraines. Physical examination is unremarkable, no focal neurological deficits and GCS is 15. Patient reports improvement in pain after migraine cocktail. She'll be discharged home. Follow-up with PCP. Report back to ER with any new or worsening symptoms. Discussed return parameters and answered all questions. Patient conveyed verbal understanding and agreed to the plan. I discussed this case in detail with my attending Dr. Palacios Undiagnosed new problem with uncertain prognosis? @ -No Drug Therapy requiring intensive monitoring for toxicity (Heparin, Nitro, Insulin, Cardizem)? @ -No Were any procedures done? @ -No Diagnosis/symptom? @ -Migraine Acute, or Chronic, or Acute on Chronic? @ -Acute Uncomplicated (without systemic symptoms) or Complicated (systemic symptoms)? @ -Uncomplicated Side effects of treatment? @ -No Exacerbation, Progression, or Severe Exacerbation? @ -No Poses a threat to life or bodily function? How? (Chest pain, [place], [place], pneumonia, PE, COPD, DKA, ARF, appy, cholecystitis, CVA, Diverticulitis, Homicidal, Suicidal, threat to staff... and all critical care pts) @ -No Disposition Clinical Impression: Migraine headache Disposition: HOME SELF-CARE Condition: Good Instructions (If sedation given, give patient instructions): Migraine Headache (ED) Additional Instructions: Follow-up with PCP. Report back to ER with any new or worsening symptoms. Take Motrin Tylenol as needed for pain control. Stay well-hydrated. Caffeine in the form of coffee or soda is at times helpful with headaches. Is patient prescribed a controlled substance at d/c from ED?: No Referrals: Clover Almeida MD [Primary Care Provider] - 1-2 days Time of Disposition: 12:38
[2022-06-17 13:07] VITALS: BP 117/68; PULSE 86; RESP 16
== END 2022-06-17 13:07 | disposition home or self-care (01) ==
LOC: EC 11:16
DX: G43.909 Migraine, unspecified, not intractable, without status migrainosus (principal); I10 Essential (primary) hypertension; J45.909 Unspecified asthma, uncomplicated; F31.9 Bipolar disorder, unspecified; F41.9 Anxiety disorder, unspecified; Z79.899 Other long term (current) drug therapy; Z87.891 Personal history of nicotine dependence; Z88.0 Allergy status to penicillin; Z88.1 Allergy status to other antibiotic agents; Z88.2 Allergy status to sulfonamides; Z88.8 Allergy status to other drugs, medicaments and biological substances; Z91.040 Latex allergy status
CPT/HCPCS: 99283; 96374; 96375 ×3; 96361; J1200; J1100; J2765; J1885

== ENCOUNTER 2022-08-14 10:53 | Day surgery (SDC) | payer OTHER ==
[2022-08-09 09:26] VITALS: BMI 37.1
[~2022-08-14 10:53] MED LIST changes: -LIDOCAINE 1% (10MG/ML) FOR IV START INTRADERMA PRN
[2022-08-14 12:56] VITALS: TEMP 97.6
[2022-08-14 13:05] LABS: Glucose,Whole Blood 91 mg/dL (70-110)
[2022-08-14] MEDS ORDERED: PROPOFOL 10 MG/ML 20 ML VIAL IV ONE (14:46)
[2022-08-14] MEDS ORDERED: LIDOCAINE 2% INJ 20 MG/ML (2 ML VIAL) ONE (14:46)
--- NOTE | 2022-08-14 15:00 | P.GSHP ---
History of Present Illness H&P Date: 08/14/22 Chief Complaint: Rectal bleeding This a 40-year-old female who has complaints of rectal bleeding. Patient presents today for colonoscopy. Past Medical History Past Medical History: Asthma, Cancer, Chest Pain / Angina, GERD/Reflux, Hyp ertension Additional Past Medical History / Comment(s): left abdominal pain, ovarian cyst, hx melanoma, hernia- pt unsure where, migraines ,back pain. History of Any Multi-Drug Resistant Organisms: None Reported Past Surgical History: Adenoidectomy, Back Surgery, Orthopedic Surgery, Tonsillectomy, Tubal Ligation, Uterine Ablation Additional Past Surgical History / Comment(s): labial cyst removal, carpal tunnel bilat, Back surg with maricruz & cage. , arthroscopy right knee, COLONOSCOPY, Past Anesthesia/Blood Transfusion Reactions: Motion Sickness Additional Past Anesthesia/Blood Transfusion Reaction / Comment(s): SOMETIMES COMES OUT OF ANESTHESIA VIOLENT Smoking Status: Former smoker - Past Family History Mother Family Medical History: Cancer Additional Family Medical History / Comment(s): breast cancer Father Additional Family Medical History / Comment(s): w/aneurysm Medications and Allergies Home Medications Medication Instructions Recorded Confirmed Type Verapamil HCl [Verapamil ER] 180 mg PO DAILY 01/12/20 08/14/22 History Metoprolol Succinate [Toprol XL] 25 mg PO DAILY 06/02/21 08/14/22 History Albuterol Inhaler [Ventolin Hfa 1 puff INHALATION DIRECTED PRN 08/26/21 08/14/22 History Inhaler] Butalb/APAP/Caff 50-325-40Mg 1 tab PO DIRECTED PRN 08/26/21 08/14/22 History [Fioricet 50-325-40] Rimegepant Sulfate [Nurtec Odt] 75 mg PO DIRECTED PRN 08/26/21 08/14/22 History lamoTRIgine [lamoTRIgine ER] 100 mg PO DAILY 08/26/21 08/14/22 History Orphenadrine [Norflex] 100 mg PO Q12H PRN #10 tab 01/14/22 08/14/22 Rx predniSONE 50 mg PO DAILY 5 Days #5 tablet 01/14/22 08/14/22 Rx Allergies Allergy/AdvReac Type Severity Reaction Status Date / Time aspirin Allergy Rash/Hives Verified 08/14/22 13:03 divalproex sodium Allergy Chest Verified 08/14/22 13:03 [From Depakote] Pain,agitated and violent gabapentin Allergy Chest Verified 08/14/22 13:03 Pain,agitated and voilent latex Allergy Rash/Hives Verified 08/14/22 13:03 lithium [[place]] Allergy Confusion Verified 08/14/22 13:03 Penicillins Allergy Anaphylaxis Verified 08/14/22 13:03 povidone-iodine Allergy Rash/Hives Verified 08/14/22 13:03 [From Betadine] soap [From Betadine] Allergy Rash/Hives Verified 08/14/22 13:03 Sulfa (Sulfonamide Allergy Rash/Hives Verified 08/14/22 13:03 Antibiotics) duloxetine [From Cymbalta] AdvReac Unknown violent Verified 08/14/22 13:03 Surgical - Exam Vital Signs Temp Pulse Resp BP Pulse Ox 97.6 F 90 18 153/91 100 08/14/22 12:45 08/14/22 12:45 08/14/22 12:45 08/14/22 12:45 08/14/22 12:45 - General well developed, well nourished, no distress - Eyes PERRL - ENT normal pinna - Neck no masses - Respiratory normal expansion - Cardiovascular Rhythm: regular - Abdomen Abdomen: soft, non tender Assessment and Plan Assessment: Rectal bleeding. We'll perform colonoscopy.
--- NOTE | 2022-08-14 15:16 | P.OP ---
Date of Procedure: 08/14/22 Preoperative Diagnosis: GI bleed Postoperative Diagnosis: Internal hemorrhoids Mild diverticulosis Poor colon prep Procedure(s) Performed: Colonoscopy Anesthesia: MAC Surgeon: Chris Cobian Pathology: none sent Condition: stable Disposition: PACU Description of Procedure: The patient's placed on the endoscopy table in the lateral position. He received IV sedation. Digital rectal exam was performed. This revealed a few internal hemorrhoids. The flexible colonoscope was then placed patient anus and passed throughout the entire colon. The patient a poor colon prep. The right colon was full of a large amount liquid stool. This limited the view mucosa. The visualized right colon appeared normal. The transverse colon appeared normal in the descending and; was mild scattered diverticulosis. Scope was brought back the rectum and this appeared normal. Scope was brought back through the anus and there were internal hemorrhoids noted. Scope was withdrawn for patient. Presumed patient may have had bleeding from internal hemorrhoids.
[2022-08-14 15:44] VITALS: RESP 16
[2022-08-14] MEDS ORDERED: BUTALB/APAP/CAFF 50-325-40MG TAB PO STA (15:49)
[2022-08-14 16:38] VITALS: BP 144/88; PULSE 82
== END 2022-08-14 16:48 | disposition home or self-care (01) ==
LOC: ORWHC2ENDO 10:53
PROVIDERS: ATTEND Surgery
DX: K92.1 Melena (principal); K64.8 Other hemorrhoids; K57.30 Diverticulosis of large intestine without perforation or abscess without bleeding; J45.909 Unspecified asthma, uncomplicated; K21.9 Gastro-esophageal reflux disease without esophagitis; I10 Essential (primary) hypertension; Z85.820 Personal history of malignant melanoma of skin; Z90.89 Acquired absence of other organs; Z90.49 Acquired absence of other specified parts of digestive tract; Z98.51 Tubal ligation status; Z87.891 Personal history of nicotine dependence; Z80.3 Family history of malignant neoplasm of breast; Z79.51 Long term (current) use of inhaled steroids; Z79.52 Long term (current) use of systemic steroids; Z91.040 Latex allergy status; Z88.0 Allergy status to penicillin; Z88.2 Allergy status to sulfonamides
CPT/HCPCS: 45378

== ENCOUNTER 2023-01-22 19:52 | Emergency (ER) | payer OTHER ==
[2023-01-22 20:17] VITALS: TEMP 97.9
[2023-01-22] MEDS ORDERED: ONDANSETRON ODT 4 MG TAB PO STA (20:34)
[2023-01-22] MEDS ORDERED: ORPHENADRINE 30 MG/ML 2 ML VIAL IM STA (20:34)
[2023-01-22] MEDS ORDERED: HYDROmorphone 1 MG/ML 1 ML SYRINGE IM STA (20:34)
--- NOTE | 2023-01-22 20:36 | ED ---
Headache HPI - General Chief Complaint: Headache Stated Complaint: Migraine,left side muscle spasms Time Seen by Provider: 01/22/23 20:23 Source: patient, RN notes reviewed Mode of arrival: wheelchair Limitations: no limitations - History of Present Illness Initial Comments: 42-year-old female presents emergency Department chief complaint of migraine hea dache, chronic pain. Patient states she uses see Dr. Stern pain medication states that she has a new pain management as she her insurance is not accepted. Denies any new trauma or complaints states that she just has ongoing headaches, back pain. - Related Data Home Medications Medication Instructions Recorded Confirmed Verapamil HCl [Verapamil ER] 180 mg PO DAILY 01/12/20 08/14/22 Metoprolol Succinate [Toprol XL] 25 mg PO DAILY 06/02/21 08/14/22 Albuterol Inhaler [Ventolin Hfa 1 puff INHALATION DIRECTED PRN 08/26/21 08/14/22 Inhaler] Butalb/APAP/Caff 50-325-40Mg 1 tab PO DIRECTED PRN 08/26/21 08/14/22 [Fioricet 50-325-40] Rimegepant Sulfate [Nurtec Odt] 75 mg PO DIRECTED PRN 08/26/21 08/14/22 lamoTRIgine [lamoTRIgine ER] 100 mg PO DAILY 08/26/21 08/14/22 Previous Rx's Medication Instructions Recorded Orphenadrine [Norflex] 100 mg PO Q12H PRN #10 tab 01/14/22 predniSONE 50 mg PO DAILY 5 Days #5 tablet 01/14/22 Ondansetron Odt [Zofran Odt] 4 mg PO Q8HR PRN #10 tab 01/22/23 Orphenadrine [Norflex] 100 mg PO Q12H #14 tab 01/22/23 Allergies Allergy/AdvReac Type Severity Reaction Status Date / Time aspirin Allergy Rash/Hives Verified 01/22/23 20:11 divalproex sodium Allergy Chest Verified 01/22/23 20:11 [From Depakote] Pain,agitated and violent gabapentin Allergy Chest Verified 01/22/23 20:11 Pain,agitated and voilent latex Allergy Rash/Hives Verified 01/22/23 20:11 lithium [[place]] Allergy Confusion Verified 01/22/23 20:11 Penicillins Allergy Anaphylaxis Verified 01/22/23 20:11 povidone-iodine Allergy Rash/Hives Verified 01/22/23 20:11 [From Betadine] soap [From Betadine] Allergy Rash/Hives Verified 01/22/23 20:11 Sulfa (Sulfonamide Allergy Rash/Hives Verified 01/22/23 20:11 Antibiotics) duloxetine [From Cymbalta] AdvReac Unknown violent Verified 01/22/23 20:11 Review of Systems ROS Statement: Those systems with pertinent positive or pertinent negative responses have been documented in the HPI. ROS Other: All systems not noted in ROS Statement are negative. Past Medical History Past Medical History: Asthma, Cancer, Chest Pain / Angina, GERD/Reflux, Hypertension Additional Past Medical History / Comment(s): left abdominal pain, ovarian cyst, hx melanoma, hernia- pt unsure where, migraines ,back pain. History of Any Multi-Drug Resistant Organisms: None Reported Past Surgical History: Adenoidectomy, Back Surgery, Orthopedic Surgery, Tonsillectomy, Tubal Ligation, Uterine Ablation Additional Past Surgical History / Comment(s): labial cyst removal, carpal tunnel bilat, Back surg with maricruz & cage. , arthroscopy right knee, COLONOSCOPY, Past Anesthesia/Blood Transfusion Reactions: Motion Sickness Additional Past Anesthesia/Blood Transfusion Reaction / Comment(s): SOMETIMES COMES OUT OF ANESTHESIA VIOLENT Past Psychological History: Anxiety, Bipolar, Depression, PTSD, Schizophrenia Smoking Status: Former smoker Past Alcohol Use History: None Reported Past Drug Use History: None Reported - Past Family History Mother Family Medical History: Cancer Additional Family Medical History / Comment(s): breast cancer Father Additional Family Medical History / Comment(s): w/aneurysm General Exam Limitations: no limitations General appearance: alert, in no apparent distress Head exam: Present: atraumatic, normocephalic, normal inspection ENT exam: Present: normal exam, mucous membranes moist Neck exam: Present: normal inspection, full ROM. Absent: tenderness, meningismus, lymphadenopathy Respiratory exam: Present: normal lung sounds bilaterally. Absent: respiratory distress, wheezes, rales, rhonchi, stridor Cardiovascular Exam: Present: regular rate, normal rhythm, normal heart sounds. Absent: systolic murmur, diastolic murmur, rubs, gallop, clicks Neurological exam: Present: alert, oriented X3, CN II-XII intact, reflexes normal. Absent: motor sensory deficit Course Vital Signs 01/22/23 01/22/23 20:09 20:42 Temperature 97.9 F Pulse Rate 83 95 Respiratory 20 18 Rate Blood Pressure 171/101 149/94 O2 Sat by Pulse 99 97 Oximetry Medical Decision Making - Medical Decision Making Was pt. sent in by a medical professional or institution (, [facility], [facility], urgent care, hospital, or fci...) When possible be specific @ -=no Did you speak to anyone other than the patient for history (EMS, parent, family, police, friend...)? What history was obtained from this source @ -No Did you review nursing and triage notes (agree or disagree)? Why? @ -I reviewed and agree with nursing and triage notes Were old charts reviewed (outside hosp., previous admission, EMS record, old EKG, old radiological studies, urgent care reports/EKG's, fci records)? Report findings @ -No old charts were reviewed Differential Diagnosis (chest pain, altered mental status, abdominal pain women, abdominal pain men, vaginal bleeding, weakness, fever, dyspnea, syncope, h eadache, dizziness, GI bleed, back pain, seizure, CVA, palpatations, mental health, musculoskeletal)? @ -Chronic pain, migraines, EKG interpreted by me (3pts min.). @ -None X-rays interpreted by me (1pt min.). @ -None done CT interpreted by me (1pt min.). @ -None done U/S interpreted by me (1pt. min.). @ -None done What testing was considered but not performed or refused? (CT, X-rays, U/S, labs)? Why? @ -None What meds were considered but not given or refused? Why? @ -None Did you discuss the management of the patient with other professionals (professionals i.e. , [facility], RESEARCH CHEMIST, lab, RT, psych nurse, social economist, community development technician, teacher, facility security officer, case management associate)? Give summary @ -No Was smoking cessation discussed for >3mins.? @ -No Was critical care preformed (if so, how long)? @ -No Were there social determinants of health that impacted care today? How? (Homelessness, low income, unemployed, alcoholism, drug addiction, transportation, low edu. Level, literacy, decrease access to med. care, long-term, rehab)? @ -No Was there de-escalation of care discussed even if they declined (Discuss DNR or withdrawal of care, Hospice)? DNR status @ -No What co-morbidities impacted this encounter? (DM, HTN, Smoking, COPD, CAD, Cancer, CVA, ARF, Chemo, Hep., AIDS, mental health diagnosis, sleep apnea, morbid obesity)? @ -None Was patient admitted / discharged? Hospital course, mention meds given and route, prescriptions, significant lab abnormalities, going to OR and other pertinent info. @ -Discharge patient provided analgesics in the emergency department advised that she's felt a severe pain management for further pain meds. Patient tragically intact will be discharged in stable condition Undiagnosed new problem with uncertain prognosis? @ -No Drug Therapy requiring intensive monitoring for toxicity (Heparin, Nitro, In sulin, Cardizem)? @ -No Were any procedures done? @ -No Diagnosis/symptom? @ -Chronic headaches, back pain Acute, or Chronic, or Acute on Chronic? @ -Acute on Chronic Uncomplicated (without systemic symptoms) or Complicated (systemic symptoms)? @ -Uncomplicated Side effects of treatment? @ -No Exacerbation, Progression, or Severe Exacerbation? @ -No Poses a threat to life or bodily function? How? (Chest pain, [place], [place], pneumonia, PE, COPD, DKA, ARF, appy, cholecystitis, CVA, Diverticulitis, Homicidal, Suicidal, threat to staff... and all critical care pts) @ -No Disposition Clinical Impression: Chronic headaches, Back pain Disposition: HOME SELF-CARE Condition: Stable Instructions (If sedation given, give patient instructions): Acute Headache (ED) Additional Instructions: Please return to the Emergency Department if symptoms worsen or any other concerns. Prescriptions: Orphenadrine [Norflex] 100 mg PO Q12H #14 tab Ondansetron Odt [Zofran Odt] 4 mg PO Q8HR PRN #10 tab PRN Reason: Nausea Is patient prescribed a controlled substance at d/c from ED?: No Referrals: None,Stated [Primary Care Provider] - 1-2 days Time of Disposition: 20:36
[2023-01-22 21:06] VITALS: BP 149/94; PULSE 95; RESP 18
== END 2023-01-22 20:57 | disposition home or self-care (01) ==
LOC: EC 19:52
DX: G89.29 Other chronic pain (principal); R51.9 Headache, unspecified; M54.9 Dorsalgia, unspecified; J45.909 Unspecified asthma, uncomplicated; I10 Essential (primary) hypertension; Z87.891 Personal history of nicotine dependence; Z86.59 Personal history of other mental and behavioral disorders; Z79.899 Other long term (current) drug therapy; Z88.6 Allergy status to analgesic agent; Z91.040 Latex allergy status; Z88.2 Allergy status to sulfonamides; Z88.0 Allergy status to penicillin; Z88.8 Allergy status to other drugs, medicaments and biological substances; Z88.1 Allergy status to other antibiotic agents
CPT/HCPCS: 99284; 96372 ×2; J2360; J1170

== ENCOUNTER 2023-03-24 20:36 | Emergency (ER) | payer OTHER ==
[2023-03-24 21:01] VITALS: TEMP 98.6
--- NOTE | 2023-03-24 21:41 | XR ---
EXAMINATION TYPE: XR ankle complete RT DATE OF EXAM: 03/24/2023 9:28 PM CLINICAL INDICATION:Female, 42 years old with history of r/o fx; [facility] COMPARISON: None TECHNIQUE: XR ankle complete RT; ankle is imaged in frontal, lateral and oblique projections. FINDINGS: There is no evidence of acute osseous pathology. The joint spaces are well-preserved without evidenc e of subluxation or dislocation. Kager's fat pad is intact. Soft tissues are within normal limits. No radiopaque foreign bodies are identified. IMPRESSION: No evidence of acute fracture.
[2023-03-24] MEDS: ACETAMINOPHEN TAB 500 MG TAB PO STA (22:16)
--- NOTE | 2023-03-24 22:48 | US ---
EXAM: US Duplex Right Lower Extremity Veins CLINICAL HISTORY: US Reason: r/o dvt TECHNIQUE: Real-time duplex ultrasound scan of the right lower extremity veins integrating B-mode two-dimensional vascular structure, Doppler spectral analysis, color flow Doppler imaging and compression. COMPARISON: No relevant prior studies available. FINDINGS: Deep veins: Unremarkable. No DVT in the visualized common femoral, femoral, proximal deep femoral or popliteal veins. The veins demonstrate normal color flow, are normally compressible, with normal phasic flow and/or augmentation response. Superficial veins: Unremarkable. No thrombus in the visualized great saphenous vein. Soft tissues: No acute findings. No popliteal cyst. IMPRESSION: Negative right lower extremity venous duplex ultrasound. No evidence of DVT.
--- NOTE | 2023-03-24 22:55 | ED ---
General Adult HPI - General Chief complaint: Extremity Injury, Lower Stated complaint: rt ankle pain Time Seen by Provider: 03/24/23 20:56 Source: patient Mode of arrival: wheelchair Limitations: no limitations - History of Present Illness Initial comments: 42-year-old female presenting to the ED with a chief complaint of right ankle pain. Patient states that she was helping someone move 2 days ago and shortly after started to experience pain and swelling of her right ankle. Does not note any specific injury at this time however notes since then has had ongoing pain prompting presentation to the ED for further evaluation. Patient has been able to ambulate. No other complaints at this time. - Related Data Home Medications Medication Instructions Recorded Confirmed Verapamil HCl [Verapamil ER] 180 mg PO DAILY 01/12/20 08/14/22 Metoprolol Succinate [Toprol XL] 25 mg PO DAILY 06/02/21 08/14/22 Albuterol Inhaler [Ventolin Hfa 1 puff INHALATION DIRECTED PRN 08/26/21 08/14/22 Inhaler] Butalb/APAP/Caff 50-325-40Mg 1 tab PO DIRECTED PRN 08/26/21 08/14/22 [Fioricet 50-325-40] Rimegepant Sulfate [Nurtec Odt] 75 mg PO DIRECTED PRN 08/26/21 08/14/22 lamoTRIgine [lamoTRIgine ER] 100 mg PO DAILY 08/26/21 08/14/22 Previous Rx's Medication Instructions Recorded Orphenadrine [Norflex] 100 mg PO Q12H PRN #10 tab 01/14/22 predniSONE 50 mg PO DAILY 5 Days #5 tablet 01/14/22 Ondansetron Odt [Zofran Odt] 4 mg PO Q8HR PRN #10 tab 01/22/23 Orphenadrine [Norflex] 100 mg PO Q12H #14 tab 01/22/23 Allergies Allergy/AdvReac Type Severity Reaction Status Date / Time aspirin Allergy Rash/Hives Verified 03/24/23 20:52 divalproex sodium Allergy Chest Verified 03/24/23 20:52 [From Depakote] Pain,agitated and violent gabapentin Allergy Chest Verified 03/24/23 20:52 Pain,agitated and voilent latex Allergy Rash/Hives Verified 02/17/24 20:52 lithium [[place]] Allergy Confusion Verified 03/24/23 20:52 Penicillins Allergy Anaphylaxis Verified 03/24/23 20:52 povidone-iodine Allergy Rash/Hives Verified 03/24/23 20:52 [From Betadine] soap [From Betadine] Allergy Rash/Hives Verified 03/24/23 20:52 Sulfa (Sulfonamide Allergy Rash/Hives Verified 03/24/23 20:52 Antibiotics) duloxetine [From Cymbalta] AdvReac Unknown violent Verified 03/24/23 20:52 Review of Systems ROS Statement: Those systems with pertinent positive or pertinent negative responses have been documented in the HPI. ROS Other: All systems not noted in ROS Statement are negative. Past Medical History Past Medical History: Asthma, Cancer, Chest Pain / Angina, GERD/Reflux, Hypertension Additional Past Medical History / Comment(s): left abdominal pain, ovarian cyst, hx melanoma, hernia- pt unsure where, migraines ,back pain. History of Any Multi-Drug Resistant Organisms: None Reported Past Surgical History: Adenoidectomy, Back Surgery, Orthopedic Surgery, Tonsillectomy, Tubal Ligation, Uterine Ablation Additional Past Surgical History / Comment(s): labial cyst removal, carpal tunnel bilat, Back surg with maricruz & cage. , arthroscopy right knee, COLONOSCOPY, Past Anesthesia/Blood Transfusion Reactions: Motion Sickness Additional Past Anesthesia/Blood Transfusion Reaction / Comment(s): SOMETIMES COMES OUT OF ANESTHESIA VIOLENT Past Psychological History: Anxiety, Bipolar, Depression, PTSD, Schizophrenia Smoking Status: Former smoker Past Alcohol Use History: None Reported Past Drug Use History: None Reported - Past Family History Mother Family Medical History: Cancer Additional Family Medical History / Comment(s): breast cancer Father Additional Family Medical History / Comment(s): w/aneurysm General Exam Limitations: no limitations General appearance: alert, in no apparent distress Neck exam: Present: normal inspection Respiratory exam: Present: normal lung sounds bilaterally Cardiovascular Exam: Present: regular rate, normal rhythm GI/Abdominal exam: Present: soft Extremities exam: Present: other (Strength and sensation of right lower extremity intact. Patient notes point tenderness to the lateral and medial side of her ankle. DP/PT pulses palpable.) Neurological exam: Present: alert, oriented X3 Skin exam: Present: warm, dry Course Vital Signs 03/24/23 20:38 Temperature 98.6 F Pulse Rate 89 Respiratory 18 Rate Blood Pressure 154/103 O2 Sat by Pulse 99 Oximetry Medical Decision Making - Medical Decision Making Was pt. sent in by a medical professional or institution (, [facility], [facility], urgent care, hospital, or halfway...) When possible be specific @ -No Did you speak to anyone other than the patient for history (EMS, parent, family, police, friend...)? What history was obtained from this source @ -No Did you review nursing and triage notes (agree or disagree)? Why? @ -I reviewed and agree with nursing and triage notes Were old charts reviewed (outside hosp., previous admission, EMS record, old EKG, old radiological studies, urgent care reports/EKG's, halfway records)? Report findings @ -No old charts were reviewed Differential Diagnosis (chest pain, altered mental status, abdominal pain women, abdominal pain men, vaginal bleeding, weakness, fever, dyspnea, syncope, headache, dizziness, GI bleed, back pain, seizure, CVA, palpatations, mental health, musculoskeletal)? @ -Differential Musculoskeletal Muscular strain, contusion, ligament sprain, fracture, arthritis, septic arthritis, bursitis, cellulitis, muscle spasm, nerve compression, DVT, arterial occlusion, herpes zoster, electrolyte abnormality, tumor.... This is not meant to be in all inclusive list EKG interpreted by me (3pts min.). @ -None X-rays interpreted by me (1pt min.). @ -X-ray of the ankle interpreted me showing no evidence of fracture or other acute finding. CT interpreted by me (1pt min.). @ -None done U/S interpreted by me (1pt. min.). @ -Ultrasound of the right lower extremity revealed no evidence of DVT or other acute finding. What testing was considered but not performed or refused? (CT, X-rays, U/S, labs)? Why? @ -None What meds were considered but not given or refused? Why? @ -None Did you discuss the management of the patient with other professionals (professionals i.e. [facility] Barajas, [facility], lab, RT, psych nurse, professor of social work, record changer, teacher, retail loan officer, case assembler)? Give summary @ -No Was smoking cessation discussed for >3mins.? @ -No Was critical care preformed (if so, how long)? @ -No Were there social determinants of health that impacted care today? How? (Homelessness, low income, unemployed, alcoholism, drug addiction, transportation, low edu. Level, literacy, decrease access to med. care, assisted, rehab)? @ -No Was there de-escalation of care discussed even if they declined (Discuss DNR or withdrawal of care, Hospice)? DNR status @ -No What co-morbidities impacted this encounter? (DM, HTN, Smoking, COPD, CAD, Cancer, CVA, ARF, Chemo, Hep., AIDS, mental health diagnosis, sleep apnea, morbid obesity)? @ -None Was patient admitted / discharged? Hospital course, mention meds given and route, prescriptions, significant lab abnormalities, going to OR and other pertinent info. @ -Discharge 42-year-old female reporting some pain and swelling of her right ankle after helping move furniture 2 days ago which has been continuous in nature. Imaging here revealed no evidence of acute finding. Symptoms likely musculoskeletal in nature. Patient's ankle was wrapped and she reported significant improvement with pain. Patient discharged home in stable condition. Advise follow-up with her PCP. Undiagnosed new problem with uncertain prognosis? @ -No Drug Therapy requiring intensive monitoring for toxicity (Heparin, Nitro, Insulin, Cardizem)? @ -No Were any procedures done? @ -No Diagnosis/symptom? @ -Right ankle sprain Acute, or Chronic, or Acute on Chronic? @ -Acute Uncomplicated (without systemic symptoms) or Complicated (systemic symptoms)? @ -Uncomplicated Side effects of treatment? @ -No Exacerbation, Progression, or Severe Exacerbation? @ -No Poses a threat to life or bodily function? How? (Chest pain, [place], [place], pneumonia, PE, COPD, DKA, ARF, appy, cholecystitis, CVA, Diverticulitis, Homicidal, Suicidal, threat to staff... and all critical care pts) @ -No Disposition Clinical Impression: Ankle sprain Disposition: HOME SELF-CARE Condition: Good Instructions (If sedation given, give patient instructions): Ankle Sprain (ED) Additional Instructions: Please return to the Emergency Department if symptoms worsen or any other concerns. Please follow-up with your PCP Is patient prescribed a controlled substance at d/c from ED?: No Referrals: Meli Mason DO [Primary Care Provider] - 1-2 days Time of Disposition: 23:18
[2023-03-24 23:27] VITALS: BP 135/94; PULSE 79; RESP 16
== END 2023-03-24 23:30 | disposition home or self-care (01) ==
LOC: EC 20:36
DX: S93.401A Sprain of unspecified ligament of right ankle, initial encounter (principal); I10 Essential (primary) hypertension; J45.909 Unspecified asthma, uncomplicated; F31.9 Bipolar disorder, unspecified; Z79.899 Other long term (current) drug therapy; Z88.0 Allergy status to penicillin; Z88.2 Allergy status to sulfonamides; Z88.6 Allergy status to analgesic agent; Z88.8 Allergy status to other drugs, medicaments and biological substances; Z91.040 Latex allergy status; Z91.09 Other allergy status, other than to drugs and biological substances; Z87.891 Personal history of nicotine dependence; X58.XXXA Exposure to other specified factors, initial encounter; Y93.89 Activity, other specified
CPT/HCPCS: 99284

== ENCOUNTER 2023-04-27 16:39 | Emergency (ER) | payer OTHER ==
[2023-04-27 17:14] VITALS: RESP 18; TEMP 98.2
[2023-04-27] MEDS: KETOROLAC 15 MG/ML 1 ML VIAL IM STA (17:43)
[2023-04-27] MEDS: ORPHENADRINE 30 MG/ML 2 ML VIAL IM STA (17:43)
--- NOTE | 2023-04-27 17:47 | ED ---
Back Pain [facility] - General Chief Complaint: Back Pain/Injury Stated Complaint: Back/Hip Pain Time Seen by Provider: 04/27/23 17:13 Source: patient, RN notes reviewed - History of Present Illness Initial Comments: Pleasant 42-year-old female with history of chronic back pain, former cigarette smoker. Patient presents to the emergency room today stating that she flared up her back, she believes 2 days ago when she was riding in an ambulance with her relatives. Denies any fall or direct trauma. Denies any problems with bowel movements or urination. Pain is in the left lower back but does radiate across the entire back and into the left hip.. Exacerbated by movement, alleviated by rest, no saddle anesthesia. Does get a tingling sensation radiating into her left hip at times. Street of previous back surgery 2 years ago. Patient denying any chest pain or shortness of breath. No fever or chills. No skin rashes or lesions. Is able to ambulate with increased pain. No abdominal pain. No headache, no fever or chills, no changes in vision or hearing, no sore throat or difficulty with speech, no neck pain, no chest pain or shortness of breath, no abdominal pain, no nausea or vomiting, no changes in urination or bowel movements, , no skin rashes or lesions. Past medical, surgical, social, and family history reviewed. MD Complaint: back pain - Related Data Home Medications Medication Instructions Recorded Confirmed Verapamil HCl [Verapamil ER] 180 mg PO DAILY 01/12/20 08/14/22 Metoprolol Succinate [Toprol XL] 25 mg PO DAILY 06/02/21 08/14/22 Albuterol Inhaler [Ventolin Hfa 1 puff INHALATION DIRECTED PRN 08/26/21 08/14/22 Inhaler] Butalb/APAP/Caff 50-325-40Mg 1 tab PO DIRECTED PRN 08/26/21 08/14/22 [Fioricet 50-325-40] Rimegepant Sulfate [Nurtec Odt] 75 mg PO DIRECTED PRN 08/26/21 08/14/22 lamoTRIgine [lamoTRIgine ER] 100 mg PO DAILY 08/26/21 08/14/22 Previous Rx's Medication Instructions Recorded Orphenadrine [Norflex] 100 mg PO Q12H PRN #10 tab 01/14/22 predniSONE 50 mg PO DAILY 5 Days #5 tablet 01/14/22 Ondansetron Odt [Zofran Odt] 4 mg PO Q8HR PRN #10 tab 01/22/23 Orphenadrine [Norflex] 100 mg PO Q12H #14 tab 01/22/23 Cyclobenzaprine [Flexeril] 10 mg PO TID PRN #20 tab 04/27/23 Allergies Allergy/AdvReac Type Severity Reaction Status Date / Time aspirin Allergy Rash/Hives Verified 04/27/23 17:12 divalproex sodium Allergy Chest Verified 04/27/23 17:12 [From Depakote] Pain,agitated and violent gabapentin Allergy Chest Verified 04/27/23 17:12 Pain,agitated and voilent latex Allergy Rash/Hives Verified 04/27/23 17:12 lithium [[place]] Allergy Confusion Verified 04/27/23 17:12 Penicillins Allergy Anaphylaxis Verified 04/27/23 17:12 povidone-iodine Allergy Rash/Hives Verified 04/27/23 17:12 [From Betadine] soap [From Betadine] Allergy Rash/Hives Verified 04/27/23 17:12 Sulfa (Sulfonamide Allergy Rash/Hives Verified 04/27/23 17:12 Antibiotics) duloxetine [From Cymbalta] AdvReac Unknown violent Verified 04/27/23 17:12 Review of Systems ROS Statement: Those systems with pertinent positive or pertinent negative responses have been documented in the HPI. ROS Other: All systems not noted in ROS Statement are negative. Past Medical History Past Medical History: Asthma, Cancer, Chest Pain / Angina, GERD/Reflux, Hypertension Additional Past Medical History / Comment(s): left abdominal pain, ovarian cyst, hx melanoma, hernia- pt unsure where, migraines ,back pain. History of Any Multi-Drug Resistant Organisms: None Reported Past Surgical History: Adenoidectomy, Back Surgery, Orthopedic Surgery, Tonsillectomy, Tubal Ligation, Uterine Ablation Additional Past Surgical History / Comment(s): labial cyst removal, carpal tunnel bilat, Back surg with maricruz & cage. , arthroscopy right knee, COLONOSCOPY, Past Anesthesia/Blood Transfusion Reactions: Motion Sickness Additional Past Anesthesia/Blood Transfusion Reaction / Comment(s): SOMETIMES COMES OUT OF ANESTHESIA VIOLENT Past Psychological History: Anxiety, Bipolar, Depression, PTSD, Schizophrenia Smoking Status: Former smoker Past Alcohol Use History: None Reported Past Drug Use History: None Reported - Past Family History Mother Family Medical History: Cancer Additional Family Medical History / Comment(s): breast cancer Father Additional Family Medical History / Comment(s): w/aneurysm General Exam - General Exam Comments Initial Comments: Patient does not appear to be ill or toxic. Cranial nerves II through XII grossly intact. Alert and oriented 4. General appearance: alert, in no apparent distress Head exam: Present: atraumatic, normocephalic, normal inspection Eye exam: Present: normal appearance, PERRL, EOMI. Absent: scleral icterus, conjunctival injection, periorbital swelling ENT exam: Present: normal exam, mucous membranes moist, normal external ear exam Neck exam: Present: normal inspection. Absent: tenderness, meningismus, lymphadenopathy Respiratory exam: Present: normal lung sounds bilaterally. Absent: respiratory distress, wheezes, rales, rhonchi, stridor Cardiovascular Exam: Present: regular rate, normal rhythm, normal heart sounds. Absent: systolic murmur, diastolic murmur, rubs, gallop, clicks GI/Abdominal exam: Present: soft, normal bowel sounds. Absent: distended, ten derness, guarding, rebound, rigid Extremities exam: Present: normal inspection, full ROM, normal capillary refill. Absent: tenderness, pedal edema, joint swelling, calf tenderness Back exam: Present: normal inspection, tenderness, paraspinal tenderness, other (She tender in the left lumbar paraspinal area. Straight leg raise negative. DTRs intact. She'll lesions. No crepitus. No erythema. No midline tenderness range of motion limited by pain.). Absent: CVA tenderness (R), CVA tenderness (L), muscle spasm, vertebral tenderness, rash noted Neurological exam: Present: alert, oriented X3, CN II-XII intact Psychiatric exam: Present: normal affect, normal mood, other (DTRs intact, great toe extensor strength +5 out of 5. Sensation intact. Neurovascular intact) Skin exam: Present: warm, dry, intact, normal color. Absent: rash Course Vital Signs 04/27/23 17:06 Temperature 98.2 F Pulse Rate 80 Respiratory 18 Rate Blood Pressure 127/83 O2 Sat by Pulse 100 Oximetry Medical Decision Making - Medical Decision Making Was pt. sent in by a medical professional or institution? @ -no Did you speak to anyone other than the patient for history? @ -Patient has a friend in the room as well Did you review nursing and triage notes? @ -Agree Were old charts reviewed? @ -no Differential Diagnosis? @ -Differential diagnosis includes but not limited to: Acute exacerbation of chronic low back pain, lumbar strain, joint arthropathy, does not appear to be consistent with dangerous situations such as infectious process, cauda equina syndrome, seizure, epidural abscess. EKG interpreted by me (3pts min.)? @ -[none] X-rays interpreted by me (1pt min.)? @ -Independent interpretation lumbosacral x-rays by me show evidence of previous surgery. No evidence of acute pathology as read by me. Awaiting radiology interpretation which is delayed CT interpreted by me (1pt min.)? @ -[none] U/S interpreted by me (1pt. min.)? @ -[none] What testing was considered but not performed? (CT, X-rays, U/S, labs)? Why? @Laboratory investigations to include CBC, inflammatory markers, renal function was all considered. However I did not feel this would change course treatment t herapy. What meds were considered but not given? Why? @ -[none] Did you discuss the management of the patient with other professionals? @ -no Did you reconcile home meds? @ -[none] Was smoking cessation discussed for >3mins.? @ -[none] Was critical care preformed (if so, how long)? @ -[none] Were there social determinants of health that impacted care today? How? (Homelessness, low income, unemployed, alcoholism, drug addiction, transportation, low edu. Level, literacy, decrease access to med. care, fdc, rehab)? @ -Previous cigarette smoker, patient in pain management Was there de-escalation of care discussed even if they declined? (Discuss DNR or withdrawal of care, Hospice)? @ -no What co-morbidities impacted this encounter? (DM, HTN, Smoking, COPD, CAD, Cancer, CVA, Hep., AIDS, mental health diagnosis, sleep apnea, morbid obesity)? @ -Chronic pain, and pain management Was patient admitted / discharged? @ -Stable Undiagnosed new problem with uncertain prognosis? @ -[none] Drug Therapy requiring intensive monitoring for toxicity (Heparin, Nitro, Insulin, Cardizem)? @ -[none] Were any procedures done? @ -[none] Diagnosis/symptom? @ -Acute exacerbation of chronic low back pain Acute, or Chronic, or Acute on Chronic? @ -Acute on chronic Uncomplicated (without systemic symptoms) or Complicated (systemic symptoms)? @ -Uncomplicated Side effects of treatment? @ -[none] Exacerbation, Progression, or Severe Exacerbation] @ -Exacerbation Poses a threat to life or bodily function? @ -[no] Follow-up with your regular physician as directed. Return to the ER immediately if any symptoms worsen, new symptoms arise, or any other problems develop. Patient was told to return to the ER for any signs or symptoms worsen. Told to return immediately if any other problems arise. All questions answered. Treatment plan discussed. Patient in agreement Every effort has been made to ensure accuracy of this dictation. However, due to the limitations of electronic medical records and dictation devices, errors in charting still occur. Patient has no evidence of cauda equina syndrome or dangerous back issues such as infectious process or epidural abscess. Patient should follow up with her pain management physician for further pain control. Ketorolac, Norflex, and morphine here. Disposition Clinical Impression: Acute exacerbation of chronic low back pain Disposition: HOME SELF-CARE Condition: Stable Instructions (If sedation given, give patient instructions): Acute Low Back Pain (ED) Additional Instructions: Follow-up with your regular physician as directed. Return to the ER immediately if any symptoms worsen, new symptoms arise, or any other problems develop. Contact your pain management physician for further pain control. Prescriptions: Cyclobenzaprine [Flexeril] 10 mg PO TID PRN #20 tab PRN Reason: Spasms Is patient prescribed a controlled substance at d/c from ED?: No Referrals: Meli Mason DO [Primary Care Provider] - 04/30/23 Time of Disposition: 18:16
[2023-04-27] MEDS: ONDANSETRON ODT 4 MG TAB PO STA (17:57)
--- NOTE | 2023-04-27 18:03 | XR ---
Lumbar spine HISTORY: Low back COMPARISON: 06/19/2020. TECHNIQUE: 3 views of the lumbar spine were obtained. FINDINGS: There is an interdisc and posterior metallic fusion of L4 and L5. Lumbar vertebral segments are fernie l in height is no fracture or subluxation. The disc spaces well maintained. Visualized sacrum and SI joints are normal. IMPRESSION: Postsurgical changes of L4-5 fusion as described. No other significant abnormality seen.
[2023-04-27] MEDS ORDERED: ONDANSETRON 4 MG/2 ML VIAL IVP PRN (18:16)
[2023-04-27] MEDS: ONDANSETRON 4 MG/2 ML VIAL IVP STA (18:20)
[2023-04-27] MEDS: MORPHINE SULFATE 4 MG/ML SYRINGE IM STA (18:23)
[2023-04-27 18:52] VITALS: BP 122/84; PULSE 84
== END 2023-04-27 18:42 | disposition home or self-care (01) ==
LOC: EC 16:39
DX: G89.29 Other chronic pain (principal); M54.50 Low back pain, unspecified; Z87.891 Personal history of nicotine dependence; Z88.2 Allergy status to sulfonamides; Z88.0 Allergy status to penicillin; Z91.040 Latex allergy status; Z88.8 Allergy status to other drugs, medicaments and biological substances
CPT/HCPCS: 72100; 99283; 96372 ×3; J2270; J2360; J1885

== ENCOUNTER 2023-05-24 14:22 | Emergency (ER) | payer OTHER ==
--- NOTE | 2023-05-24 15:04 | XR ---
EXAMINATION TYPE: XR knee complete LT DATE OF EXAM: 05/24/2023 2:55 PM CLINICAL INDICATION:Female, 43 years old with history of pain; COMPARISON: None. TECHNIQUE: XR knee complete LT; examined in Frontal, lateral and oblique projections. FINDINGS: No evidence of any acute osseous pathology, soft tissue swelling, or joint effusion is no hali. Mild osteophyte formation of the patella and tibial plateau. A fabella is present. IMPRESSION: 1. No acute osseous pathology. 2. Mild tricompartmental osteoarthritic changes.
[2023-05-24] MEDS: MORPHINE SULFATE 4 MG/ML SYRINGE IM STA ×2 (15:28→16:48)
--- NOTE | 2023-05-24 15:54 | ED ---
General Adult HPI - General Chief complaint: Extremity Injury, Lower Stated complaint: Pain in L knee Time Seen by Provider: 05/24/23 15:19 Source: patient, RN notes reviewed, old records reviewed Mode of arrival: ambulatory Limitations: no limitations - History of Present Illness Initial comments: Patient is a 43-year-old female who presents emergency department with chronic left knee pain. No trauma. Has history of bad arthritis as well as prior arthroscopy of bilateral knees who presents emergency department complaining of left knee pain. No new trauma. States it has been worse over the last 3 days. Is chronically on [place]. Presents for further evaluation. Has not followed up with an orthopedic surgeon. Workup started in triage. I evaluated the patient when she was placed in a room. - Related Data Home Medications Medication Instructions Recorded Confirmed Rimegepant Sulfate [Nurtec Odt] 75 mg PO DAILY PRN MDD 75mg 08/26/21 05/24/23 Baclofen 5 mg PO TID PRN 05/24/23 05/24/23 Famotidine [Pepcid] 20 mg PO BID 05/24/23 05/24/23 HYDROcodone/APAP 10-325MG [[place] 1 tab PO QID PRN 05/24/23 05/24/23 10-325] Ketoconazole 2% Cream [Nizoral 2%] 1 applic TOPICAL BID PRN 05/24/23 05/24/23 Ketoconazole 2% Shampoo [Nizoral] 1 applic TOPICAL DIRECTED PRN 05/24/23 05/24/23 Metoprolol Succinate (ER) [Toprol 50 mg PO DAILY 05/24/23 05/24/23 Xl] Naloxone HCl [Narcan] 4 mg NASAL BID PRN 05/24/23 05/24/23 QUEtiapine [SEROquel] 50 mg PO HS 05/24/23 05/24/23 Ubrogepant [Ubrelvy] 100 mg PO DAILY PRN 05/24/23 05/24/23 lamoTRIgine 200 mg PO DAILY 05/24/23 05/24/23 oxyBUTYnin chloride [Ditropan] 5 mg PO BID 05/24/23 05/24/23 Previous Rx's Medication Instructions Recorded Ondansetron Odt [Zofran Odt] 4 mg PO Q8HR PRN #10 tab 01/22/23 Cyclobenzaprine [Flexeril] 10 mg PO TID PRN #20 tab 04/27/23 Allergies Allergy/AdvReac Type Severity Reaction Status Date / Time aspirin Allergy Rash/Hives Verified 05/24/23 15:44 divalproex sodium Allergy Chest Verified 05/24/23 15:44 [From Depakote] Pain,agitated and violent gabapentin Allergy Chest Verified 05/24/23 15:44 Pain,agitated and voilent latex Allergy Rash/Hives Verified 05/24/23 15:44 lithium [[place]] Allergy Confusion Verified 05/24/23 15:44 Penicillins Allergy Anaphylaxis Verified 05/24/23 15:44 povidone-iodine Allergy Rash/Hives Verified 05/24/23 15:44 [From Betadine] soap [From Betadine] Allergy Rash/Hives Verified 05/24/23 15:44 Sulfa (Sulfonamide Allergy Rash/Hives Verified 05/24/23 15:44 Antibiotics) duloxetine [From Cymbalta] AdvReac Unknown violent Verified 05/24/23 15:44 Review of Systems ROS Statement: Those systems with pertinent positive or pertinent negative responses have been documented in the HPI. Review of Systems: CONST: Denies fever EYES: Denies blurry vision ENT: Denies nasal congestion C/V: Denies Chest pain RESP: Denies shortness of breath GI: Denies abdominal pain : Denies dysuria SKIN: Denies rash. MSK: Endorses left knee pain NEURO: Denies headache ROS Other: All systems not noted in ROS Statement are negative. Past Medical History Past Medical History: Asthma, Cancer, Chest Pain / Angina, GERD/Reflux, Hypertension Additional Past Medical History / Comment(s): left abdominal pain, ovarian cyst, hx melanoma, hernia- pt unsure where, migraines ,back pain. History of Any Multi-Drug Resistant Organisms: None Reported Past Surgical History: Adenoidectomy, Back Surgery, Orthopedic Surgery, Tonsillectomy, Tubal Ligation, Uterine Ablation Additional Past Surgical History / Comment(s): labial cyst removal, carpal tunnel bilat, Back surg with maricruz & cage. , arthroscopy right knee, COLONOSCOPY, Past Anesthesia/Blood Transfusion Reactions: Motion Sickness Additional Past Anesthesia/Blood Transfusion Reaction / Comment(s): SOMETIMES COMES OUT OF ANESTHESIA VIOLENT Past Psychological History: Anxiety, Bipolar, Depression, PTSD, Schizophrenia Smoking Status: Former smoker Past Alcohol Use History: None Reported Past Drug Use History: None Reported - Past Family History Mother Family Medical History: Cancer Additional Family Medical History / Comment(s): breast cancer Father Additional Family Medical History / Comment(s): w/aneurysm General Exam - General Exam Comments Initial Comments: General: Appears in no acute distress. HEAD: Normal with no signs of head trauma. EYES: EOMI ENT: Grossly intact RESPIRATORY: No respiratory distress C/V: Regular rate and rhythm. no edema. ABD: Nondistended EXT: Decreased range of motion of the left knee secondary to pain. No obvious deformities. Neurovascular intact throughout. Mild tenderness to palpation of the left calf without any obvious changes. SKIN: No rashes or lesions observed on exposed skin. NEURO: Alert and oriented x 4. Limitations: no limitations Course Vital Signs 05/24/23 05/24/23 05/24/23 14:33 15:10 16:07 Temperature 98.0 F 99.2 F 98.4 F Pulse Rate 83 88 80 Respiratory 16 18 17 Rate Blood Pressure 154/92 157/99 155/97 O2 Sat by Pulse 98 97 97 Oximetry Medical Decision Making - Medical Decision Making Was pt. sent in by a medical professional or institution (, PA, TEACHER TUTOR, urgent care, hospital, or prison...) When possible be specific @ -No Did you speak to anyone other than the patient for history (EMS, parent, family, police, friend...)? What history was obtained from this source @ -No Did you review nursing and triage notes (agree or disagree)? Why? @ -I reviewed and agree with nursing and triage notes Were old charts reviewed (outside hosp., previous admission, EMS record, old EKG, old radiological studies, urgent care reports/EKG's, prison records)? Report findings @ -Old charts reviewed Differential Diagnosis (chest pain, altered mental status, abdominal pain women, abdominal pain men, vaginal bleeding, weakness, fever, dyspnea, syncope, headache, dizziness, GI bleed, back pain, seizure, CVA, palpatations, mental health, musculoskeletal)? @ -Differential Musculoskeletal Muscular strain, contusion, ligament sprain, fracture, arthritis, septic arthritis, bursitis, cellulitis, muscle spasm, nerve compression, DVT, arterial occlusion, herpes zoster, electrolyte abnormality, tumor.... This is not meant to be in all inclusive list EKG interpreted by me (3pts min.). @ -None done X-rays interpreted by me (1pt min.). @ -Left knee x-ray shows osteoarthritis without any obvious acute process. CT interpreted by me (1pt min.). @ -None done U/S interpreted by me (1pt. min.). @ -Venous duplex ultrasound negative for DVT. What testing was considered but not performed or refused? (CT, X-rays, U/S, labs)? Why? @ -None What meds were considered but not given or refused? Why? @ -None Did you discuss the management of the patient with other professionals (professionals i.e. , PA, TEACHER TUTOR, lab, RT, psych nurse, psych social worker, seed technician, teacher, field health officer, rn case manager)? Give summary @ -No Was smoking cessation discussed for >3mins.? @ -No Was critical care preformed (if so, how long)? @ -No Were there social determinants of health that impacted care today? How? (Homelessness, low income, unemployed, alcoholism, drug addiction, transportation, low edu. Level, literacy, decrease access to med. care, alf, rehab)? @ -No Was there de-escalation of care discussed even if they declined (Discuss DNR or withdrawal of care, Hospice)? DNR status @ -No What co-morbidities impacted this encounter? (DM, HTN, Smoking, COPD, CAD, Cancer, CVA, ARF, Chemo, Hep., AIDS, mental health diagnosis, sleep apnea, morbid obesity)? @ -None Was patient admitted / discharged? Hospital course, mention meds given and route, prescriptions, significant lab abnormalities, going to OR and other pertinent info. @ -Patient presents with chronic atraumatic left knee pain. States is worse over the last 3 days. X-ray obtained in triage. X-ray unremarkable. I evaluated the patient and recommended an ultrasound to rule out DVT. She was in agreement this plan. She was given analgesia medications as well as a knee immobilizer and crutches. She may need follow-up with orthopedic surgery which we discussed at length, she may require like an MRI to evaluate for a knee sprain or possible internal knee injury. We do not have the capabilities here in the department. She was in agreement with this plan. Vital signs are currently within acceptable limits. Venous duplex ultrasound negative for DVT. I updated the patient. She is already on analgesia medications at home. She was given a knee immobilizer as well as crutches for stability and recommended follow-up with orthopedics for further evaluation for possible internal derangement of the left knee. Likely immediate knee strain or sprain at this time her pain secondary to arthritis. She was in agreement this plan. I instructed the patient to follow up with their PCP in the next 1-3 days. I provided contact information for follow up with orthopedic surgery. I explained that the patient should return to the emergency department if they experience any worsening symptoms. Strict return precautions were discussed with the patient. The patient expressed understanding of these instructions. I answered all questions that the patient had. The patient was discharged home in good condition with their prescriptions and follow up information. Undiagnosed new problem with uncertain prognosis? @ -No Drug Therapy requiring intensive monitoring for toxicity (Heparin, Nitro, Insuli n, Cardizem)? @ -No Were any procedures done? @ -No Diagnosis/symptom? @ -Chronic knee pain, left knee sprain Acute, or Chronic, or Acute on Chronic? @ -Acute on chronic Uncomplicated (without systemic symptoms) or Complicated (systemic symptoms)? @ -Uncomplicated Side effects of treatment? @ -None Exacerbation, Progression, or Severe Exacerbation] @ -No Poses a threat to life or bodily function? @ -No Disposition Clinical Impression: Chronic pain of left knee, Knee sprain Disposition: HOME SELF-CARE Condition: Good Instructions (If sedation given, give patient instructions): Knee Sprain (ED), Knee Pain (ED) Is patient prescribed a controlled substance at d/c from ED?: No Referrals: Meli Mason DO [Primary Care Provider] - 1-2 days Pia Canales DO [Doctor of Osteopathic Medicine] - 1-2 days Time of Disposition: 16:45
--- NOTE | 2023-05-24 16:36 | US ---
EXAMINATION TYPE: US venous doppler duplex LE LT DATE OF EXAM: 05/24/2023 3:57 PM COMPARISON: NONE CLINICAL INDICATION: Female, 43 years old with history of eval for dvt, post calf and knee pain; pain left leg SIDE PERFORMED: Left TECHNIQUE: The lower extremity deep venous system is examined utilizing real time linear array sonog betty with graded compression, doppler sonography and color-flow sonography. VESSELS IMAGED: Common Femoral Vein Deep Femoral Vein Greater Saphenous Vein * Femoral Vein Popliteal Vein Small Saphenous Vein * Proximal Calf Veins (* superficial vessels) Left Leg: Negative for DVT IMPRESSION: 1. Left lower extremity ultrasound negative for deep venous thrombosis.
[2023-05-24 16:37] VITALS: BP 155/97; PULSE 80; RESP 17; TEMP 98.4
== END 2023-05-24 16:55 | disposition home or self-care (01) ==
LOC: EC 14:22
DX: S83.92XA Sprain of unspecified site of left knee, initial encounter (principal); G89.29 Other chronic pain; Z87.891 Personal history of nicotine dependence; Z88.0 Allergy status to penicillin; Z88.1 Allergy status to other antibiotic agents; Z88.2 Allergy status to sulfonamides; Z88.8 Allergy status to other drugs, medicaments and biological substances; Z91.040 Latex allergy status; Z91.041 Radiographic dye allergy status; X58.XXXA Exposure to other specified factors, initial encounter
CPT/HCPCS: 73562; 93971; 99284; 96372 ×2; L1830; J2270

== ENCOUNTER 2023-07-09 20:17 | Emergency (ER) | payer OTHER ==
--- NOTE | 2023-07-09 20:40 | ED ---
Headache HPI - General Source: patient, RN notes reviewed Mode of arrival: ambulatory Limitations: no limitations <Gin Mas - Last Filed: 07/09/23 20:39> <Denilson Sheldon - Last Filed: 07/10/23 04:49> - General Stated Complaint: Migraine Time Seen by Provider: 07/09/23 20:39 - History of Present Illness Initial Comments: Quick note: 43-year-old female presented to the ER with chief complaint of a migraine. She states has been going on for the past 2 hours and her typical migraine medications are not working. She is endorsing nausea and blurry vision. (Gin Mas) 43-year-old female presents to the ED with complaints of migraine. Reports current headache typical with symptoms of her usual migraines. However reports her home medications are not working. Does note associated nausea and photopho eva. Reports headache is not the worst headache of her life and has had migraine headaches worse than this in the past. No chest pain shortness of breath. No fever or chills. No abdominal pain. No other complaints at this time. (Denilson Sheldon) - Related Data Home Medications Medication Instructions Recorded Confirmed Rimegepant Sulfate [Nurtec Odt] 75 mg PO DAILY PRN MDD 75mg 08/26/21 05/24/23 Baclofen 5 mg PO TID PRN 05/24/23 05/24/23 Famotidine [Pepcid] 20 mg PO BID 05/24/23 05/24/23 HYDROcodone/APAP 10-325MG [[place] 1 tab PO QID PRN 05/24/23 05/24/23 10-325] Ketoconazole 2% Cream [Nizoral 2%] 1 applic TOPICAL BID PRN 05/24/23 05/24/23 Ketoconazole 2% Shampoo [Nizoral] 1 applic TOPICAL DIRECTED PRN 05/24/23 05/24/23 Metoprolol Succinate (ER) [Toprol 50 mg PO DAILY 05/24/23 05/24/23 Xl] Naloxone HCl [Narcan] 4 mg NASAL BID PRN 05/24/23 05/24/23 QUEtiapine [SEROquel] 50 mg PO HS 05/24/23 05/24/23 Ubrogepant [Ubrelvy] 100 mg PO DAILY PRN 05/24/23 05/24/23 lamoTRIgine 200 mg PO DAILY 05/24/23 05/24/23 oxyBUTYnin chloride [Ditropan] 5 mg PO BID 05/24/23 05/24/23 Previous Rx's Medication Instructions Recorded Ondansetron Odt [Zofran Odt] 4 mg PO Q8HR PRN #10 tab 01/22/23 Cyclobenzaprine [Flexeril] 10 mg PO TID PRN #20 tab 04/27/23 Nitrofurantoin Monohyd/M-Cryst 100 mg PO BID 5 Days #10 cap 07/10/23 [Nitrofurantoin Monohyd/M-Cryst 100 mg] Ondansetron Odt [Zofran Odt] 4 mg PO Q8HR PRN #10 tab 07/10/23 Allergies Allergy/AdvReac Type Severity Reaction Status Date / Time aspirin Allergy Rash/Hives Verified 05/24/23 15:44 divalproex sodium Allergy Chest Verified 05/24/23 15:44 [From Depakote] Pain,agitated and violent gabapentin Allergy Chest Verified 05/24/23 15:44 Pain,agitated and voilent latex Allergy Rash/Hives Verified 05/24/23 15:44 lithium [[place]] Allergy Confusion Verified 05/24/23 15:44 Penicillins Allergy Anaphylaxis Verified 05/24/23 15:44 povidone-iodine Allergy Rash/Hives Verified 05/24/23 15:44 [From Betadine] soap [From Betadine] Allergy Rash/Hives Verified 05/24/23 15:44 Sulfa (Sulfonamide Allergy Rash/Hives Verified 05/24/23 15:44 Antibiotics) duloxetine [From Cymbalta] AdvReac Unknown violent Verified 05/24/23 15:44 Review of Systems ROS Other: All systems not noted in ROS Statement are negative. <Gni Mas - Last Filed: 07/09/23 20:39> ROS Other: All systems not noted in ROS Statement are negative. <Denilson Sheldon - Last Filed: 07/10/23 04:49> ROS Statement: Those systems with pertinent positive or pertinent negative responses have been documented in the HPI. Past Medical History Past Medical History: Asthma, Cancer, Chest Pain / Angina, GERD/Reflux, Hypertension Additional Past Medical History / Comment(s): left abdominal pain, ovarian cyst, hx melanoma, hernia- pt unsure where, migraines ,back pain. History of Any Multi-Drug Resistant Organisms: None Reported Past Surgical History: Adenoidectomy, Back Surgery, Orthopedic Surgery, Tonsillectomy, Tubal Ligation, Uterine Ablation Additional Past Surgical History / Comment(s): labial cyst removal, carpal tunnel bilat, Back surg with maricruz & cage. , arthroscopy right knee, COLONOSCOPY, Past Anesthesia/Blood Transfusion Reactions: Motion Sickness Additional Past Anesthesia/Blood Transfusion Reaction / Comment(s): SOMETIMES COMES OUT OF ANESTHESIA VIOLENT Past Psychological History: Anxiety, Bipolar, Depression, PTSD, Schizophrenia Smoking Status: Former smoker Past Alcohol Use History: None Reported Past Drug Use History: None Reported - Past Family History Mother Family Medical History: Cancer Additional Family Medical History / Comment(s): breast cancer Father Additional Family Medical History / Comment(s): w/aneurysm <Gin Mas - Last Filed: 07/09/23 20:39> General Exam <Gin Mas - Last Filed: 07/09/23 20:39> General appearance: alert, in no apparent distress Eye exam: Present: normal appearance Neck exam: Present: normal inspection Respiratory exam: Present: normal lung sounds bilaterally Cardiovascular Exam: Present: regular rate GI/Abdominal exam: Present: soft Extremities exam: Present: normal inspection Neurological exam: Present: alert, oriented X3, CN II-XII intact Skin exam: Present: warm, dry <Denilson Sheldon - Last Filed: 07/10/23 04:49> - General Exam Comments Initial Comments: Visual Physical Exam Vital signs reviewed General: Well-appearing, nontoxic, no acute distress. Head: Normocephalic, atraumatic Eyes: PERRLA, EOMI ENT: Airway patent Chest: Nonlabored breathing Skin: No visual rash, normal skin tone Neuro: Alert and oriented 3 Musculoskeletal: No gross abnormalities (Gin Mas) Course Vital Signs 07/09/23 07/09/23 07/10/23 20:41 22:50 01:32 Temperature 98 F Pulse Rate 80 89 83 Respiratory 16 19 17 Rate Blood Pressure 185/118 148/94 146/95 O2 Sat by Pulse 99 95 98 Oximetry 07/10/23 03:22 Temperature Pulse Rate 75 Respiratory 17 Rate Blood Pressure 135/84 O2 Sat by Pulse 98 Oximetry Medical Decision Making <Gin Mas - Last Filed: 07/09/23 20:39> - Lab Data Result diagrams: 07/09/23 22:48 07/09/23 22:48 <MonalisaDenilson - Last Filed: 07/10/23 04:49> - Medical Decision Making I performed the quick note portion of this chart. Electronically signed by Gin Mas PA-C (Gin Mas) Was pt. sent in by a medical professional or institution ([facility], FOUNTAIN JERK, urgent care, hospital, or [facility]...) When possible be specific @ -No Did you speak to anyone other than the patient for history (EMS, parent, family, police, friend...)? What history was obtained from this source @ -No Did you review nursing and triage notes (agree or disagree)? Why? @ -I reviewed and agree with nursing and triage notes Were old charts reviewed (outside hosp., previous admission, EMS record, old EKG, old radiological studies, urgent care reports/EKG's, [facility] records)? Report findings @ -No old charts were reviewed Differential Diagnosis (chest pain, altered mental status, abdominal pain women, abdominal pain men, vaginal bleeding, weakness, fever, dyspnea, syncope, headache, dizziness, GI bleed, back pain, seizure, CVA, palpatations, mental health, musculoskeletal)? @ -Differential Headache: Migraine, tension, cluster, carbon monoxide, central venous thrombosis, pension karma temporal arteritis, acute closure glaucoma, intercranial hemorrhage, mastoiditis, sinusitis, head injury, this is not meant to be an all-inclusive list. EKG interpreted by me (3pts min.). @ -None X-rays interpreted by me (1pt min.). @ -None done CT interpreted by me (1pt min.). @ -None done U/S interpreted by me (1pt. min.). @ -None done What testing was considered but not performed or refused? (CT, X-rays, U/S, labs)? Why? @ -None What meds were considered but not given or refused? Why? @ -None Did you discuss the management of the patient with other professionals (professionals i.e. , PA, FOUNTAIN JERK, lab, RT, psych nurse, criminal justice social worker, wearing apparel presser, teacher, morals squad police officer, medical case manager)? Give summary @ -No Was smoking cessation discussed for >3mins.? @ -No Was critical care preformed (if so, how long)? @ -No Were there social determinants of health that impacted care today? How? (Homelessness, low income, unemployed, alcoholism, drug addiction, transportation, low edu. Level, literacy, decrease access to med. care, halfway, rehab)? @ -No Was there de-escalation of care discussed even if they declined (Discuss DNR or withdrawal of care, Hospice)? DNR status @ -No What co-morbidities impacted this encounter? (DM, HTN, Smoking, COPD, CAD, Cancer, CVA, ARF, Chemo, Hep., AIDS, mental health diagnosis, sleep apnea, morbid obesity)? @ -None Was patient admitted / discharged? Hospital course, mention meds given and route, prescriptions, significant lab abnormalities, going to OR and other pertinent info. @ -Discharge 43-year-old female presenting to the ED with complaints of headache. Reports headache is consistent with history of migraines and is not the worst migraine she has had in her life. On examination cranial nerves II to XII intact. Laboratory studies reviewed. Labs including CBC CMP unremarkable. UA does show evidence of urinary tract infection. Provided analgesia and antiemetics here with significant improvement in symptoms. Discharged home with prescription for Macrobid. Discussed return precautions with patient who verbalized agreement. Undiagnosed new problem with uncertain prognosis? @ -No Drug Therapy requiring intensive monitoring for toxicity (Heparin, Nitro, Insulin, Cardizem)? @ -No Were any procedures done? @ -No Diagnosis/symptom? @ -Migraine, urinary tract infection Acute, or Chronic, or Acute on Chronic? @ -Acute Uncomplicated (without systemic symptoms) or Complicated (systemic symptoms)? @ -Uncomplicated Side effects of treatment? @ -No Exacerbation, Progression, or Severe Exacerbation? @ -No Poses a threat to life or bodily function? How? (Chest pain, [place], [place], pneumonia, PE, COPD, DKA, ARF, appy, cholecystitis, CVA, Diverticulitis, Homicidal, Suicidal, threat to staff... and all critical care pts) @ -No (Denilson Sheldon) - Lab Data Lab Results 07/09/23 07/09/23 07/10/23 Range/Units 22:48 22:48 01:00 WBC 9.5 (3.8-10.6) k/uL RBC 4.59 (3.80-5.40) m/uL Hgb 13.6 (11.4-16.0) gm/dL Hct 40.4 (34.0-46.0) % MCV 88.1 (80.0-100.0) fL MCH 29.7 (25.0-35.0) pg MCHC 33.7 (31.0-37.0) g/dL RDW 13.3 (11.5-15.5) % Plt Count 256 (150-450) k/uL MPV 8.2 Neutrophils % 76 % Lymphocytes % 18 % Monocytes % 4 % Eosinophils % 1 % Basophils % 1 % Neutrophils # 7.2 (1.3-7.7) k/uL Lymphocytes # 1.7 (1.0-4.8) k/uL Monocytes # 0.3 (0-1.0) k/uL Eosinophils # 0.1 (0-0.7) k/uL Basophils # 0.1 (0-0.2) k/uL Sodium 137 (137-145) mmol/L Potassium 4.1 (3.5-5.1) mmol/L Chloride 106 (98-107) mmol/L Carbon Dioxide 24 (22-30) mmol/L Anion Gap 7 mmol/L BUN 11 (7-17) mg/dL Creatinine 0.74 (0.52-1.04) mg/dL Est GFR (CKD-EPI)AfAm >90 (>60 ml/min/1.73 sqM) Est GFR (CKD-EPI)NonAf >90 (>60 ml/min/1.73 sqM) Glucose 105 H (74-99) mg/dL Calcium 9.6 (8.4-10.2) mg/dL Total Bilirubin 0.8 (0.2-1.3) mg/dL AST 19 (14-36) U/L ALT 12 (4-34) U/L Alkaline Phosphatase 80 (38-126) U/L Total Protein 7.6 (6.3-8.2) g/dL Albumin 4.6 (3.5-5.0) g/dL Urine Color Colorless Urine Appearance Clear (Clear) Urine pH 7.0 (5.0-8.0) Ur Specific [place] 1.010 (1.001-1.035) Urine Protein Negative (Negative) Urine Glucose (UA) Negative (Negative) Urine Ketones Negative (Negative) Urine Blood Negative (Negative) Urine Nitrite Negative (Negative) Urine Bilirubin Negative (Negative) Urine Urobilinogen <2.0 (<2.0) mg/dL Ur Leukocyte Esterase Large H (Negative) Urine RBC 1 (0-5) /hpf Urine WBC 27 H (0-5) /hpf Ur Squamous Epith Cells 4 (0-4) /hpf Urine Bacteria Rare H (None) /hpf Hyaline Casts 1 (0-2) /lpf Urine Mucus Rare H (None) /hpf Disposition <Gin Mas - Last Filed: 07/09/23 20:39> Is patient prescribed a controlled substance at d/c from ED?: No Time of Disposition: 03:02 <Denilson Sheldon - Last Filed: 07/10/23 04:49> Clinical Impression: Migraine, UTI (urinary tract infection) Disposition: HOME SELF-CARE Condition: Good Instructions (If sedation given, give patient instructions): Urinary Tract Infection in Women (DC), Migraine Headache (ED) Additional Instructions: Please return to the Emergency Department if symptoms worsen or any other concerns. Please follow-up with your PCP. Prescriptions: Nitrofurantoin Monohyd/M-Cryst [Nitrofurantoin Monohyd/M-Cryst 100 mg] 100 mg PO BID 5 Days #10 cap Ondansetron Odt [Zofran Odt] 4 mg PO Q8HR PRN #10 tab PRN Reason: Nausea Referrals: Meli Mason DO [Primary Care Provider] - 1-2 days
[2023-07-09 20:43] VITALS: TEMP 98
[2023-07-09 23:08] LABS: ALT 12 U/L (4-34); AST 19 U/L (14-36); African American GFR (CKD) >90 (>60 ml/min/1.73 sqM); Albumin 4.6 g/dL (3.5-5.0); Alkaline Phosphatase 80 U/L (38-126); Anion Gap 7 mmol/L; Blood Urea Nitrogen 11 mg/dL (7-17); Calcium 9.6 mg/dL (8.4-10.2); Carbon Dioxide 24 mmol/L (22-30); Chloride 106 mmol/L (98-107); Glucose 105 mg/dL (74-99); Non-African American GFR(CKD) >90 (>60 ml/min/1.73 sqM); Potassium 4.1 mmol/L (3.5-5.1); Sodium 137 mmol/L (137-145); Total Bilirubin 0.8 mg/dL (0.2-1.3); Total Protein 7.6 g/dL (6.3-8.2)
[2023-07-09] MEDS: ONDANSETRON 4 MG/2 ML VIAL IVP STA (23:20)
[2023-07-09] MEDS: SODIUM CHLORIDE 0.9% 1,000 ML IV STA (23:22)
[2023-07-09] MEDS: MORPHINE SULFATE 4 MG/ML SYRINGE IVP STA (23:23)
[2023-07-09] MEDS: HYDROmorphone 1 MG/ML 1 ML SYRINGE IVP STA (23:24)
[2023-07-09] MEDS: DEXAMETHASONE SOD PHOSPHATE 10 MG/ML 1 ML VIAL IVP STA (23:34)
[2023-07-09] MEDS: MAGNESIUM SULFATE-D5W PMX 1 GM in DEXTROSE/WATER 1 100ML.BAG IVPB SCH (23:36)
[2023-07-09 23:37] LABS: Basophils # (A) 0.1 k/uL (0-0.2); Basophils % (A) 1 %; Eosinophils # (A) 0.1 k/uL (0-0.7); Eosinophils % (A) 1 %; HCT 40.4 % (34.0-46.0); HGB 13.6 gm/dL (11.4-16.0); Lymphocytes # (A) 1.7 k/uL (1.0-4.8); Lymphocytes % (A) 18 %; MCH 29.7 pg (25.0-35.0); MCHC 33.7 g/dL (31.0-37.0); MCV 88.1 fL (80.0-100.0); Mean Platelet Volume 8.2; Monocytes # (A) 0.3 k/uL (0-1.0); Monocytes % (A) 4 %; Neutrophils # (A) 7.2 k/uL (1.3-7.7); Neutrophils % (A) 76 %; Platelet Count 256 k/uL (150-450); RBC 4.59 m/uL (3.80-5.40); RDW 13.3 % (11.5-15.5); WBC 9.5 k/uL (3.8-10.6)
[2023-07-10] MEDS: ACETAMINOPHEN TAB 500 MG TAB PO STA (01:29)
[2023-07-10 01:34] VITALS: RESP 17
[2023-07-10 01:57] LABS: Appearance,Urine Clear (Clear); Bacteria,Urine Rare /hpf; Bilirubin,Urine Negative (Negative); Blood,Urine Negative (Negative); Color,Urine Colorless; Glucose,Urine (UA) Negative (Negative); Hyaline Casts,Urine 1 /lpf (0-2); Ketones,Urine Negative (Negative); Leukocyte Esterase,Urine Large (Negative); Mucus,Urine Rare /hpf; Nitrite,Urine Negative (Negative); Protein,Urine Negative (Negative); RBC,Urine 1 /hpf (0-5); Squamous Epithelial Cell,Urine 4 /hpf (0-4); Urobilinogen,Urine <2.0 mg/dL (<2.0); WBC,Urine 27 /hpf (0-5)
[2023-07-10] MEDS: ONDANSETRON 4 MG ODT STARTER PACK 2 TAB BTL PO STA (03:13)
[2023-07-10 03:23] VITALS: BP 135/84; PULSE 75
== END 2023-07-10 03:24 | disposition home or self-care (01) ==
LOC: EC 20:17
DX: G43.909 Migraine, unspecified, not intractable, without status migrainosus (principal); N39.0 Urinary tract infection, site not specified; Z88.0 Allergy status to penicillin; Z88.2 Allergy status to sulfonamides; Z88.8 Allergy status to other drugs, medicaments and biological substances; Z91.040 Latex allergy status; Z91.041 Radiographic dye allergy status; Z87.891 Personal history of nicotine dependence
CPT/HCPCS: 36415; 80053; 85025; 81001; 99284; 96365; 96366 ×3; 96375 ×3; J2270; J1100; J2405; J3475 ×2; S0119

== ENCOUNTER 2023-10-17 10:06 | Emergency (ER) | payer OTHER ==
[2023-10-17 10:25] VITALS: TEMP 97.8
--- NOTE | 2023-10-17 11:20 | ED ---
General Adult HPI - General Chief complaint: Extremity Injury, Upper Stated complaint: R Hand Injury Time Seen by Provider: 10/17/23 10:27 Source: patient Mode of arrival: ambulatory Limitations: no limitations - History of Present Illness Initial comments: Dictation was produced using mycirQ[employer] dictation software. please excuse any grammatical, word or spelling errors. Chief Complaint: 43-year-old female presents with right hand pain History of Present Illness: Patient is a 43-year-old female presents to the emergency department with right hand pain. Patient states she had he get caught in the car door as she was closing it. Event occurred 4 days ago. Patient states chest pain along the fifth metacarpal bone. States that whenever she tries to make a fist pain radiates into her right medial wrist The ROS documented in this emergency department record has been reviewed and confirmed by me. Those systems with pertinent positive or negative responses have been documented in the HPI. All other systems are other negative and/or noncontributory. - Related Data Home Medications Medication Instructions Recorded Confirmed Rimegepant Sulfate [Nurtec Odt] 75 mg PO DAILY PRN MDD 75mg 08/26/21 05/24/23 Baclofen 5 mg PO TID PRN 05/24/23 05/24/23 Famotidine [Pepcid] 20 mg PO BID 05/24/23 05/24/23 HYDROcodone/APAP 10-325MG [[place] 1 tab PO QID PRN 05/24/23 05/24/23 10-325] Ketoconazole 2% Cream [Nizoral 2%] 1 applic TOPICAL BID PRN 05/24/23 05/24/23 Ketoconazole 2% Shampoo [Nizoral] 1 applic TOPICAL DIRECTED PRN 05/24/23 05/24/23 Metoprolol Succinate (ER) [Toprol 50 mg PO DAILY 05/24/23 05/24/23 Xl] Naloxone HCl [Narcan] 4 mg NASAL BID PRN 05/24/23 05/24/23 QUEtiapine [SEROquel] 50 mg PO HS 05/24/23 05/24/23 Ubrogepant [Ubrelvy] 100 mg PO DAILY PRN 05/24/23 05/24/23 lamoTRIgine 200 mg PO DAILY 04/18/24 04/18/24 oxyBUTYnin chloride [Ditropan] 5 mg PO BID 05/24/23 05/24/23 Previous Rx's Medication Instructions Recorded Ondansetron Odt [Zofran Odt] 4 mg PO Q8HR PRN #10 tab 01/22/23 Cyclobenzaprine [Flexeril] 10 mg PO TID PRN #20 tab 04/27/23 Nitrofurantoin Monohyd/M-Cryst 100 mg PO BID 5 Days #10 cap 07/10/23 [Nitrofurantoin Monohyd/M-Cryst 100 mg] Ondansetron Odt [Zofran Odt] 4 mg PO Q8HR PRN #10 tab 07/10/23 Allergies Allergy/AdvReac Type Severity Reaction Status Date / Time aspirin Allergy Rash/Hives Verified 10/17/23 10:25 divalproex sodium Allergy Chest Verified 10/17/23 10:25 [From Depakote] Pain,agitated and violent gabapentin Allergy Chest Verified 10/17/23 10:25 Pain,agitated and voilent latex Allergy Rash/Hives Verified 10/17/23 10:25 lithium [[place]] Allergy Confusion Verified 10/17/23 10:25 Penicillins Allergy Anaphylaxis Verified 10/17/23 10:25 povidone-iodine Allergy Rash/Hives Verified 10/17/23 10:25 [From Betadine] soap [From Betadine] Allergy Rash/Hives Verified 10/17/23 10:25 Sulfa (Sulfonamide Allergy Rash/Hives Verified 10/17/23 10:25 Antibiotics) duloxetine [From Cymbalta] AdvReac Unknown violent Verified 10/17/23 10:25 Review of Systems ROS Statement: Those systems with pertinent positive or pertinent negative responses have been documented in the HPI. ROS Other: All systems not noted in ROS Statement are negative. Past Medical History Past Medical History: Asthma, Cancer, Chest Pain / Angina, GERD/Reflux, Hypertension Additional Past Medical History / Comment(s): left abdominal pain, ovarian cyst, hx melanoma, hernia- pt unsure where, migraines ,back pain. History of Any Multi-Drug Resistant Organisms: None Reported Past Surgical History: Adenoidectomy, Back Surgery, Orthopedic Surgery, Tonsillectomy, Tubal Ligation, Uterine Ablation Additional Past Surgical History / Comment(s): labial cyst removal, carpal tunnel bilat, Back surg with maricruz & cage. , arthroscopy right knee, COLONOSCOPY, Past Anesthesia/Blood Transfusion Reactions: Motion Sickness Additional Past Anesthesia/Blood Transfusion Reaction / Comment(s): SOMETIMES COMES OUT OF ANESTHESIA VIOLENT Past Psychological History: Anxiety, Bipolar, Depression, PTSD, Schizophrenia Smoking Status: Former smoker Past Alcohol Use History: None Reported Past Drug Use History: None Reported - Past Family History Mother Family Medical History: Cancer Additional Family Medical History / Comment(s): breast cancer Father Additional Family Medical History / Comment(s): w/aneurysm General Exam - General Exam Comments Initial Comments: General: Well-appearing, nontoxic, no acute distress. Head: Normocephalic, atraumatic Eyes: PERRLA, EOMI ENT: Airway patent Chest: Nonlabored breathing Skin: No visual rash, normal skin tone Neuro: Alert and oriented 3 Musculoskeletal: No gross abnormalities Right hand: No gross deformities, palpatory tenderness along the fifth metacarpal bone Limitations: no limitations Course Vital Signs 10/17/23 10:23 Temperature 97.8 F Pulse Rate 80 Respiratory 20 Rate Blood Pressure 143/92 O2 Sat by Pulse 99 Oximetry Medical Decision Making - Medical Decision Making Was pt. sent in by a medical professional or institution (, PA, GRADE SETTER, urgent care, hospital, or correction...) When possible be specific @ -No Did you speak to anyone other than the patient for history (EMS, parent, family, police, friend...)? What history was obtained from this source @ -No Did you review nursing and triage notes (agree or disagree)? Why? @ -I reviewed and agree with nursing and triage notes Were old charts reviewed (outside hosp., previous admission, EMS record, old EKG, old radiological studies, urgent care reports/EKG's, correction records)? Report findings @ -No old charts were reviewed Differential Diagnosis (chest pain, altered mental status, abdominal pain women, abdominal pain men, vaginal bleeding, musculoskeletal, weakness, fever, dyspnea, syncope, headache, dizziness, GI bleed, back pain, seizure, CVA, palpatations, mental health)? @ -Hand fracture, hand strain, and contusion EKG interpreted by me (3pts min.). @ -None done X-rays interpreted by me (1pt min.). @ -hand x-ray is unremarkable CT interpreted by me (1pt min.). @ -None done U/S interpreted by me (1pt. min.). @ -None done What testing was considered but not performed or refused? (CT, X-rays, U/S, labs)? Why? @ -None What meds were considered but not given or refused? Why? @ -None Was smoking cessation discussed for >3mins.? @ -No Were there social determinants of health that impacted care today? How? (Homelessness, low income, unemployed, alcoholism, drug addiction, transportation, low edu. Level, literacy, decrease access to med. care, assisted, rehab)? @ -No Was there de-escalation of care discussed even if they declined (Discuss DNR or withdrawal of care, Hospice)? DNR status @ -No What co-morbidities impacted this encounter? (DM, HTN, Smoking, COPD, CAD, Cancer, CVA, ARF, Chemo, Hep., AIDS, mental health diagnosis, sleep apnea, morbid obesity)? @ -None Was patient admitted / discharged? Hospital course, mention meds given and route, prescriptions, significant lab abnormalities, going to OR and other pertinent info. @ -43-year-old female presents with right hand pain after crush injury mechanism 4 days ago. No gross deformities. Vital signs stable. X-ray is unremarkable. Clinical presentation consistent with hand contusion. Patient discharged Did you discuss the management of the patient with other professionals (professionals i.e. , PA, GRADE SETTER, lab, RT, psych nurse, social services coordinator, sack lifter, teacher, career services officer, case packer)? Give summary @ -No Was critical care preformed (if so, how long)? @ -No Undiagnosed new problem with uncertain prognosis? @ -No Drug Therapy requiring intensive monitoring for toxicity (Heparin, Nitro, Insu toribio, Cardizem)? @ -No Were any procedures done? @ -No Diagnosis/symptom? Acute, or Chronic, or Acute on Chronic? Uncomplicated (without systemic symptoms) or Complicated (systemic symptoms)? @ -Hand contusion Side effects of treatment? @ -No Exacerbation, Progression, or Severe Exacerbation? @ -No Poses a threat to life or bodily function? How? (Chest pain, [place], [place], pneumonia, PE, COPD, DKA, ARF, appy, cholecystitis, CVA, Diverticulitis, Homicidal, Suicidal, threat to staff... and all critical care pts) @ -No Disposition Clinical Impression: Hand contusion Disposition: HOME SELF-CARE Condition: Good Instructions (If sedation given, give patient instructions): Hand Sprain (ED) Is patient prescribed a controlled substance at d/c from ED?: No Referrals: Cornell Guadalupe MD [Primary Care Provider] - 1-2 days Time of Disposition: 12:17
--- NOTE | 2023-10-17 12:07 | XR ---
EXAMINATION TYPE: XR hand complete RT DATE OF EXAM: 10/17/2023 COMPARISON: 3 views wrist 04/18/2022 HISTORY: 43-year-old female trauma, fifth MCP joint pain TECHNIQUE: 3 views FINDINGS: No acute fracture, subluxation, dislocation seen. Some prominent appearance at the distal r adioulnar joint probably projectional. IMPRESSION: No acute osseous abnormality seen. Some joint space prominence at the distal radial ulnar joint proba romel projectional. Correlate for any focal pain here.
[2023-10-17 12:26] VITALS: BP 141/91; PULSE 78; RESP 18
== END 2023-10-17 12:25 | disposition home or self-care (01) ==
LOC: EC 10:06
CPT/HCPCS: 99283

== ENCOUNTER → 2024-04-28 | Outpatient (CLI) | payer OTHER ==
--- NOTE | 2024-04-28 22:31 | MR ---
EXAMINATION TYPE: MR lumbar spine wo con DATE OF EXAM: 04/28/2024 COMPARISON: CT lumbar spine January 14, 2022. Lumbar spine x-ray April 27, 2023. Lumbar spine MRI [facility] 2020 HISTORY: Low back pain with numbness/tingling into both legs, Hx back surgery 3.5 years ago TECHNIQUE: Multiplanar, multisequence imaging of the lumbar spine is performed without IV contrast. FINDINGS: Slight levoconvex scoliotic curvature is redemonstrated. Sagittal images of the lumbar spin e show vertebral body heights and alignment to appear stable and satisfactory. Susceptibility artifac t from bilateral posterior intrapedicular rods and screws and artificial disc material at L4-L5 level is redemonstrated. The intervertebral discs otherwise demonstrate normal heights and hydration. The conus medullaris remains normal in position and signal ending mid L1 level. The bone marrow signal intensity is within normal limits above and below the surgical levels. Axial images show T12-L1 and L1-L2 levels to appear within normal limits. Axial images at L2-L3 level show mild broad disc bulge minimally effacing the anterior thecal sac and mild facet arthropathy bilaterally. There is mild bilateral neural foraminal narrowing seen. Axial images at L3-L4 level shows some susceptibility artifact from surgical hardware inferiorly. The re is mild to moderate facet arthropathy and ligament flavum hypertrophy. There is some effacement of the right posterior lateral thecal sac and image 14. There is mild broad disc bulge minimally efface s the anterior thecal sac. Mild bilateral neural foraminal narrowing is seen. Axial images at L4-L5 level shows a susceptibility artifact from surgical change right-sided laminect chasidy defect is less well seen on MRI versus prior CT. Spinal canal is preserved. Bilateral neural fora gus are patent. Axial images at the L5-S1 level show mild facet arthropathy bilaterally. IMPRESSION: Surgical change at L4-L5 level is redemonstrated. Alignment is stable and satisfactory. P ersistent mild multilevel degenerative change in the mid to lower lumbar spine as detailed above. [facility], , 04/28/2024 10:28 PM
== END | disposition home or self-care (01) ==
LOC: RADMRIMAIN 21:15
PROVIDERS: ATTEND Neurological Surgery
DX: M47.26 Other spondylosis with radiculopathy, lumbar region (principal); M99.73 Connective tissue and disc stenosis of intervertebral foramina of lumbar region
CPT/HCPCS: 72148

== ENCOUNTER → 2024-05-06 | Outpatient (CLI) | payer OTHER ==
--- NOTE | 2024-05-06 09:28 | XR ---
EXAMINATION TYPE: XR lumbar spine with bend/flex DATE OF EXAM: 05/06/2024 CLINICAL INDICATION: Female, 43 years old with history of M43.16 SPONDYLOLISTHESIS, LUMBAR REGION, pa in TECHNIQUE: Frontal, lateral, dynamic flexion and extension lateral, and oblique images of the lumbar spine are obtained. COMPARISON: Lumbar spine x-ray April 27, 2023 FINDINGS: There are 5 lumbar type vertebral bodies redemonstrated. Posterior interpedicular rods and screws bilaterally at L4-L5 level with metallic disc spacer is again seen. Vertebral body heights an d disc space heights are satisfactory above the surgical levels. There is a slight grade 1 retrolisth esis L1 on L2 and L2 on L3 redemonstrated. Dynamic imaging shows limited flexion. Extension images sh ow improved alignment at L1-L2 level. Mild multilevel anterior spurring is seen. Overlying soft tissu e is unremarkable. IMPRESSION: As above. [facility], , 05/06/2024 9:25 AM
== END | disposition home or self-care (01) ==
LOC: RADXRMAIN 08:43
PROVIDERS: ATTEND Neurological Surgery
DX: M51.26 Other intervertebral disc displacement, lumbar region (principal); M43.16 Spondylolisthesis, lumbar region
CPT/HCPCS: 72114